=== PATIENT | female | born 1965 | race Caucasian/White ===

== ENCOUNTER 2021-08-05 14:27 | Inpatient (IN) | payer BC, MEDICAID ==
[~2021-08-05] VITALS: Ht 172.7 cm; Wt 133.7 kg
[~2021-08-05 14:27] MED LIST: CETI10CA5 PO; GLIP10TA9 PO; LISI20TA28 PO; LOVA40TA72 PO; MELO1TAB73 PO; METF-370 PO; NIFEDICAL PO; PANTOPRAZOLE PO; PROAIR; SIMV-8 PO
[2021-08-05] MEDS ORDERED: DexAMETHasone SOD PHOS 10MG/1ML VIAL INJ IV ONE (15:15)
[2021-08-05] MEDS ORDERED: IPRATROPIUM BROM 0.5 MG/2.5ML INH SOL NEB ONE ×2 (15:15→18:30)
[2021-08-05] MEDS ORDERED: ALBUTEROL SULF 2.5 MG/0.5ML(0.5%) NEB SOLN NEB ONE ×2 (15:15→18:30)
[2021-08-05 15:32] LABS: Albumin 3.1 g/dL (3.4-5.0); Calcium 8.7 mg/dL (8.5-10.1); Magnesium 1.9 mg/dL (1.6-2.6); Potassium 4.1 mmol/L (3.5-5.1)
[2021-08-05 15:34] LABS: Basophils # (auto) 0.2 10 ^3/uL (0-0.2); Basophils % (auto) 1.6 % (0.0-2.0); Eosinophils # (auto) 0.1 10 ^3/uL (0-0.8); Eosinophils % (auto) 1.4 % (0.0-7.0); Hemoglobin 12.3 g/dL (12.2-16.2); Lymphocytes # (auto) 1.7 10 ^3/uL (0.4-5.4); Lymphocytes % (auto) 16.2 % (10.0-50.0); Mean Corpuscular Hemoglobin 27.9 pg (28.0-32.0); Mean Corpuscular Hgb Conc. 33.3 g/dL (32.0-36.0); Mean Corpuscular Volume 83.7 fL (80.0-100.0); Monocytes # (auto) 0.5 10 ^3/uL (0-1.3); Monocytes % (auto) 5.2 % (0.0-12.0); Neutrophils % (auto) 75.6 % (37.0-80.0); Nucleated Red Blood Cells % 0.1 %; Red Blood Cells 4.42 10^6/uL (4.0-5.20); Red Cell Distribution Width 17.2 % (11.8-14.3); White Blood Cell 10.5 10^3/uL (4.4-10.8)
[2021-08-05 15:35] LABS: BUN/Creatinine Ratio 7.1; Bilirubin, Total 0.9 mg/dL (0.2-1.0)
[2021-08-05] MEDS ORDERED: IOHEXOL 350 MG/ML 100ML IJ ONE (16:40)
[2021-08-05] MEDS ORDERED: NITROGLYCERIN 0.4 MG SL TAB SL PRN (17:00)
[2021-08-05] MEDS ORDERED: MORPHINE SULFATE INJECTION 2 MG/ML SYRG IV PRN (17:00)
[2021-08-05] MEDS ORDERED: CLINDAMYCIN 600MG IV 50 ML IV ONE (18:30)
[2021-08-05] MEDS ORDERED: MONTELUKAST SODIUM 10 MG TAB PO ONE (18:30)
[2021-08-05] MEDS ORDERED: BENAZEPRIL HCL 10 MG TAB PO ONE (18:30)
[2021-08-05] MEDS ORDERED: DOCUSATE SOD 100 MG CAP PO PRN (18:30)
[2021-08-05] MEDS ORDERED: BUDESONIDE (INHALATION) 0.5 MG/2 ML NEB NEB ONE (18:30)
[2021-08-05] MEDS ORDERED: HYDROcodone-ACET 5/325MG TAB PO ONE (18:30)
[2021-08-05] MEDS ORDERED: cefTRIAXone 1GM/50ML D5W 50 ML IV ONE (18:30)
[2021-08-05] MEDS ORDERED: LACTULOSE 20Gm/30ML SOLN PO PRN (18:30)
[2021-08-05] MEDS ORDERED: DEXTROSE (50%) 50ML SYRG IV PRN (18:30)
[2021-08-05] MEDS ORDERED: ONDANSETRON HCL 4 MG/2 ML VIAL IV PRN (18:30)
[2021-08-05] MEDS ORDERED: NIFEdipine ER 30 MG TAB PO ONE (18:30)
[2021-08-05] MEDS ORDERED: PANTOPRAZOLE 40 MG/10 ML VIAL INJ IV ONE (18:30)
[2021-08-05] MEDS ORDERED: DILT-23 PO (18:33)
[2021-08-05] MEDS ORDERED: METF-370 PO (18:33)
[2021-08-05] MEDS ORDERED: DIPHCRE EX (18:33)
[2021-08-05] MEDS ORDERED: PRAS10TA18 PO (18:33)
[2021-08-05] MEDS ORDERED: SILV-21 TOP (18:33)
[2021-08-05] MEDS ORDERED: ALBU108A5 IN (18:33)
[2021-08-05] MEDS ORDERED: NALO4SPR2 (18:33)
[2021-08-05] MEDS ORDERED: AUG0.05L6 EX (18:33)
[2021-08-05] MEDS ORDERED: RANO500T2 PO (18:33)
[2021-08-05] MEDS ORDERED: DICL1GEL72 EX (18:33)
[2021-08-05] MEDS ORDERED: TRAM50TA2 PO (18:33)
[2021-08-05] MEDS ORDERED: COEN100C15 PO (18:33)
[2021-08-05] MEDS ORDERED: POTA-180 PO (18:33)
[2021-08-05] MEDS ORDERED: ASPI81CH74 PO (18:33)
[2021-08-05] MEDS ORDERED: NITR0.4S29 SL (18:33)
[2021-08-05] MEDS ORDERED: DULO60CA PO (18:33)
[2021-08-05] MEDS ORDERED: PREG200C19 PO (18:33)
[2021-08-05] MEDS ORDERED: ATOR20TA50 PO (18:33)
[2021-08-05] MEDS ORDERED: ISOS20TA49 PO (18:33)
[2021-08-05] MEDS ORDERED: GLIP5TAB12 PO (18:33)
[2021-08-05] MEDS ORDERED: INSUINJ2 SC (18:34)
[2021-08-05] MEDS ORDERED: BISO5TAB44 PO (18:37)
[2021-08-05] MEDS ORDERED: hydrOXYzine HCL 10 MG TAB PO PRN (18:45)
[2021-08-05 19:45] LABS: Magnesium 1.6 mg/dL (1.6-2.6); Phosphorus 2.8 mg/dL (2.5-4.90)
[2021-08-05 19:58] LABS: INR 1.04 (0.9-1.15); Partial Thromboplastin Time 31.6 sec (23.6-33.0)
[2021-08-05 21:50] VITALS: BP 117/64
[2021-08-05] MEDS ORDERED: IPRATROPIUM BROM 0.5 MG/2.5ML INH SOL NEB SCH (22:00)
[2021-08-05 22:05] VITALS: BP 117/64
[2021-08-05] MEDS: ACETYLCYSTEINE 10 %(100MG/ML) SOL 4ML NEB SCH (22:30)
[2021-08-05] MEDS: ALBUTEROL SULF 2.5 MG/0.5ML(0.5%) NEB SOLN NEB PRN (22:31)
[2021-08-05] MEDS: BUDESONIDE (INHALATION) 0.5 MG/2 ML NEB NEB SCH (22:31)
[2021-08-05] MEDS: POTASSIUM CHL 20 Meq TABLET PO SCH (22:55)
[2021-08-05] MEDS: ATORVASTATIN 20 MG TAB PO SCH (22:56)
[2021-08-05] MEDS: ACCU-CHEK COMFORT CURVE STRIP VI SCH (23:14)
[2021-08-05] MEDS: methylPREDNISolone SOD SUCC 40 MG/ML VL IV SCH (23:42)
[2021-08-06] MEDS ORDERED: MAGNESIUM SULFATE 1GM/100ML 100 ML IV ONE (00:45)
[2021-08-06] MEDS ORDERED: InsuLIN REG 1unit/0.01ml Soln (100units/ml) SC ONE (00:45)
[2021-08-06 05:00] VITALS: BP 107/54
[2021-08-06] MEDS: PREGABALIN CAPSULE 75 MG CAP PO SCH ×3 (05:43→21:44)
[2021-08-06] MEDS: PREGABALIN 25 MG CAP PO SCH ×3 (05:43→21:44)
[2021-08-06] MEDS: ACCU-CHEK COMFORT CURVE STRIP VI SCH ×4 (05:43→22:29)
[2021-08-06] MEDS: methylPREDNISolone SOD SUCC 40 MG/ML VL IV SCH (05:44)
[2021-08-06] MEDS: FUROSEMIDE 20 MG/2 ML VIAL IV SCH ×2 (05:44→17:40)
[2021-08-06] MEDS: CLINDAMYCIN 600MG IV 50 ML IV SCH ×3 (05:44→20:10)
[2021-08-06] MEDS: ACETYLCYSTEINE 10 %(100MG/ML) SOL 4ML NEB SCH (06:00)
[2021-08-06] MEDS ORDERED: PREGABALIN 200 MG PO SCH (06:00)
[2021-08-06] MEDS: ALBUTEROL SULF 2.5 MG/0.5ML(0.5%) NEB SOLN NEB PRN ×2 (06:16→18:34)
[2021-08-06] MEDS: IPRATROPIUM BROM 0.5 MG/2.5ML INH SOL NEB PRN ×2 (06:16→18:34)
[2021-08-06] MEDS: BUDESONIDE (INHALATION) 0.5 MG/2 ML NEB NEB SCH ×2 (06:16→18:34)
[2021-08-06 06:26] LABS: Basophils # (auto) 0 10 ^3/uL (0-0.2); Basophils % (auto) 0.1 % (0.0-2.0); Eosinophils # (auto) 0 10 ^3/uL (0-0.8); Hematocrit 38.1 % (36.0-46.0); Hemoglobin 12.6 g/dL (12.2-16.2); Lymphocytes # (auto) 0.8 10 ^3/uL (0.4-5.4); Lymphocytes % (auto) 7.4 % (10.0-50.0); Mean Corpuscular Hemoglobin 28.1 pg (28.0-32.0); Mean Corpuscular Hgb Conc. 33.1 g/dL (32.0-36.0); Monocytes # (auto) 0.2 10 ^3/uL (0-1.3); Monocytes % (auto) 2.2 % (0.0-12.0); Neutrophils # (auto) 9.6 10 ^3/uL (1.6-8.6); Neutrophils % (auto) 90.3 % (37.0-80.0); Nucleated Red Blood Cells % 0.1 %; Red Blood Cells 4.48 10^6/uL (4.0-5.20); Red Cell Distribution Width 17.7 % (11.8-14.3); White Blood Cell 10.6 10^3/uL (4.4-10.8)
[2021-08-06 06:41] LABS: INR 0.99 (0.9-1.15); Partial Thromboplastin Time 30.8 sec (23.6-33.0); Potassium 4.5 mmol/L (3.5-5.1)
[2021-08-06 06:52] LABS: BUN/Creatinine Ratio 12.8; Bilirubin, Total 0.6 mg/dL (0.2-1.0); CRP High Sensitivity 10.7 mg/dL (< 0.3); Calcium 8.9 mg/dL (8.5-10.1); Phosphorus 3.7 mg/dL (2.5-4.90); Total Protein 7.3 g/dL (6.4-8.2); Uric Acid 4.5 mg/dL (2.6-6.0)
[2021-08-06 06:59] LABS: Thyroid Stimulating Hormone 0.53 uIU/mL (0.358-3.74)
[2021-08-06] MEDS: INSULIN LANTUS (GLARGINE) 1 /0.01ml (100units/ml) SC SCH ×2 (07:01→22:38)
[2021-08-06] MEDS: InsuLIN REG 1unit/0.01ml Soln (100units/ml) SC SCH ×4 (07:02→22:38)
[2021-08-06 08:21] VITALS: BP 105/63
[2021-08-06] MEDS: cefTRIAXone 1GM/50ML D5W 50 ML IV SCH (09:00)
[2021-08-06] MEDS: CHOLECALCIFEROL (VITD3) 2,000 UNIT CAP/TAB PO SCH (09:40)
[2021-08-06] MEDS: ASPirin 81 mg TAB PO SCH (09:41)
[2021-08-06] MEDS: POTASSIUM CHL 20 Meq TABLET PO SCH ×2 (09:41→21:45)
[2021-08-06] MEDS: ENOXAPARIN SOD 40 MG/0.4 ML SYRINGE SC SCH (09:45)
[2021-08-06] MEDS ORDERED: BENAZEPRIL HCL 10 MG TAB PO SCH (10:00)
[2021-08-06] MEDS ORDERED: PANTOPRAZOLE 40 MG/10 ML VIAL INJ IV SCH (10:00)
[2021-08-06] MEDS ORDERED: NIFEdipine ER 30 MG TAB PO SCH (10:00)
[2021-08-06] MEDS ORDERED: MAGNESIUM OXIDE 400 MG TAB PO SCH (10:00)
[2021-08-06] MEDS ORDERED: LORazepam 2MG/ML-1ML VIAL IV ONE (12:30)
[2021-08-06 13:01] VITALS: BP 123/70
[2021-08-06] MEDS: PROMETHAZINE-DM 5 ML ORAL SYRUP PO PRN ×2 (14:26→19:10)
[2021-08-06 17:00] VITALS: BP 124/67
[2021-08-06 19:22] LABS: Urine WBC None Seen /hpf (0 - 5)
[2021-08-06 19:34] LABS: Urine Bacteria NONE SEEN /hpf (None Seen); Urine Blood Negative /uL (Negative); Urine Budding Yeast OCCASIONAL /hpf (None Seen); Urine Hyaline Cast FEW /lpf (0 - 2); Urine Specific Gravity 1.003 (1.001-1.035)
[2021-08-06 19:48] LABS: Amphetamine Screen, Urine NEGATIVE (NEGATIVE); Barbiturate Scree,Urine NEGATIVE (NEGATIVE); Benzodiazephine Screen, Urine NEGATIVE (NEGATIVE); Cannabinoid Screen, Urine NEGATIVE (NEGATIVE); Cocaine Screen, Urine NEGATIVE (NEGATIVE); Opiate Scree,Urine NEGATIVE (NEGATIVE); Phencyclidine Screen, Urine NEGATIVE (NEGATIVE); Protein, Urine < 5.0 mg/dL (0.0-11.9)
[2021-08-06 22:00] VITALS: BP 115/66
[2021-08-06] MEDS: ATORVASTATIN 20 MG TAB PO SCH (22:28)
[2021-08-06] MEDS: MONTELUKAST SODIUM 10 MG TAB PO SCH (22:28)
[2021-08-07] MEDS: PROMETHAZINE-DM 5 ML ORAL SYRUP PO PRN ×5 (02:24→23:31)
[2021-08-07] MEDS: CLINDAMYCIN 600MG IV 50 ML IV SCH ×3 (03:25→20:00)
[2021-08-07 05:00] VITALS: BP 102/63
[2021-08-07 06:26] LABS: Anion Gap 8 (5-15); BUN/Creatinine Ratio 21.5; Blood Urea Nitrogen 17 mg/dL (7-18); Carbon Dioxide 27 mmol/L (21-32); Chloride 105 mmol/L (98-107); GFR African American 98 mL/min; GFR Non-African American 81 mL/min; Glucose 165 mg/dL (74-106); Potassium 4.6 mmol/L (3.5-5.1); Sodium 140 mmol/L (136-145)
[2021-08-07] MEDS: ACCU-CHEK COMFORT CURVE STRIP VI SCH ×4 (06:44→21:52)
[2021-08-07] MEDS: FUROSEMIDE 20 MG/2 ML VIAL IV SCH ×2 (06:44→17:34)
[2021-08-07] MEDS: PREGABALIN 25 MG CAP PO SCH ×3 (06:44→21:51)
[2021-08-07] MEDS: PREGABALIN CAPSULE 75 MG CAP PO SCH ×3 (06:44→21:51)
[2021-08-07] MEDS: IPRATROPIUM BROM 0.5 MG/2.5ML INH SOL NEB PRN ×2 (06:54→18:17)
[2021-08-07] MEDS: ALBUTEROL SULF 2.5 MG/0.5ML(0.5%) NEB SOLN NEB PRN ×2 (06:54→18:17)
[2021-08-07] MEDS: BUDESONIDE (INHALATION) 0.5 MG/2 ML NEB NEB SCH ×2 (06:54→18:17)
[2021-08-07] MEDS: InsuLIN REG 1unit/0.01ml Soln (100units/ml) SC SCH ×4 (06:56→22:11)
[2021-08-07] MEDS: INSULIN LANTUS (GLARGINE) 1 /0.01ml (100units/ml) SC SCH ×2 (06:56→22:06)
[2021-08-07 07:56] VITALS: BP 133/77
[2021-08-07] MEDS: POTASSIUM CHL 20 Meq TABLET PO SCH ×2 (09:58→21:51)
[2021-08-07] MEDS: ASPirin 81 mg TAB PO SCH (09:59)
[2021-08-07] MEDS: BENAZEPRIL HCL 10 MG TAB PO SCH (10:00)
[2021-08-07] MEDS: cefTRIAXone 1GM/50ML D5W 50 ML IV SCH (10:01)
[2021-08-07] MEDS: FAMOTIDINE 20 MG TAB PO SCH (10:04)
[2021-08-07] MEDS: ENOXAPARIN SOD 40 MG/0.4 ML SYRINGE SC SCH (10:25)
[2021-08-07] MEDS: CHOLECALCIFEROL (VITD3) 2,000 UNIT CAP/TAB PO SCH (10:25)
[2021-08-07 12:32] VITALS: BP 105/62
[2021-08-07] MEDS: ACETAMINOPHEN 325 MG TAB PO PRN (15:36)
[2021-08-07 16:20] VITALS: BP 132/75
[2021-08-07 21:31] VITALS: BP 121/63
[2021-08-07] MEDS: ATORVASTATIN 20 MG TAB PO SCH (21:51)
[2021-08-07] MEDS: MONTELUKAST SODIUM 10 MG TAB PO SCH (21:52)
[2021-08-08] MEDS: ALBUTEROL SULF 2.5 MG/0.5ML(0.5%) NEB SOLN NEB PRN (00:13)
[2021-08-08] MEDS: CLINDAMYCIN 600MG IV 50 ML IV SCH ×3 (03:50→19:59)
[2021-08-08 04:52] VITALS: BP 115/67
[2021-08-08] MEDS: FUROSEMIDE 20 MG/2 ML VIAL IV SCH (06:22)
[2021-08-08] MEDS: PREGABALIN 25 MG CAP PO SCH ×3 (06:22→22:05)
[2021-08-08] MEDS: ACCU-CHEK COMFORT CURVE STRIP VI SCH ×4 (06:23→22:23)
[2021-08-08] MEDS: PREGABALIN CAPSULE 75 MG CAP PO SCH ×3 (06:23→22:04)
[2021-08-08] MEDS: ACETAMINOPHEN 325 MG TAB PO PRN (06:46)
[2021-08-08] MEDS: INSULIN LANTUS (GLARGINE) 1 /0.01ml (100units/ml) SC SCH ×2 (06:47→22:23)
[2021-08-08] MEDS: InsuLIN REG 1unit/0.01ml Soln (100units/ml) SC SCH ×4 (06:48→22:13)
[2021-08-08 08:30] VITALS: BP 117/73
[2021-08-08] MEDS: BUDESONIDE (INHALATION) 0.5 MG/2 ML NEB NEB SCH ×2 (09:57→22:00)
[2021-08-08] MEDS: cefTRIAXone 1GM/50ML D5W 50 ML IV SCH (10:28)
[2021-08-08] MEDS: ENOXAPARIN SOD 40 MG/0.4 ML SYRINGE SC SCH (10:29)
[2021-08-08] MEDS: FAMOTIDINE 20 MG TAB PO SCH (10:29)
[2021-08-08] MEDS: ASPirin 81 mg TAB PO SCH (10:29)
[2021-08-08] MEDS: POTASSIUM CHL 20 Meq TABLET PO SCH ×2 (10:29→22:03)
[2021-08-08] MEDS: PROMETHAZINE-DM 5 ML ORAL SYRUP PO PRN ×3 (10:29→22:12)
[2021-08-08] MEDS: CHOLECALCIFEROL (VITD3) 2,000 UNIT CAP/TAB PO SCH (10:29)
[2021-08-08] MEDS: BENAZEPRIL HCL 10 MG TAB PO SCH (10:30)
[2021-08-08] MEDS ORDERED: FUROSEMIDE 20 MG/2 ML VIAL IV ONE (11:15)
[2021-08-08 12:25] VITALS: BP 110/74
[2021-08-08 16:25] VITALS: BP 112/73
[2021-08-08] MEDS: FUROSEMIDE 40 MG/4 ML VIAL IV SCH (17:19)
[2021-08-08] MEDS: LORazepam 0.5 MG TAB PO PRN (17:37)
[2021-08-08 22:00] VITALS: BP 132/82
[2021-08-08] MEDS: ATORVASTATIN 20 MG TAB PO SCH (22:03)
[2021-08-08] MEDS: MONTELUKAST SODIUM 10 MG TAB PO SCH (22:03)
[2021-08-08 22:40] VITALS: BP 132/82
[2021-08-09] MEDS: ACETAMINOPHEN 325 MG TAB PO PRN (04:02)
[2021-08-09] MEDS: CLINDAMYCIN 600MG IV 50 ML IV SCH ×3 (04:02→21:58)
[2021-08-09] MEDS: LORazepam 0.5 MG TAB PO PRN ×2 (04:02→11:58)
[2021-08-09] MEDS: PROMETHAZINE-DM 5 ML ORAL SYRUP PO PRN ×3 (04:07→22:00)
[2021-08-09 05:00] VITALS: BP 123/80
[2021-08-09] MEDS: BUDESONIDE (INHALATION) 0.5 MG/2 ML NEB NEB SCH ×2 (05:46→19:27)
[2021-08-09 05:58] LABS: Potassium 3.6 mmol/L (3.5-5.1)
[2021-08-09 06:04] LABS: BUN/Creatinine Ratio 23.9; Calcium 9.3 mg/dL (8.5-10.1)
[2021-08-09] MEDS: FUROSEMIDE 40 MG/4 ML VIAL IV SCH ×2 (06:53→17:52)
[2021-08-09] MEDS: PREGABALIN CAPSULE 75 MG CAP PO SCH ×2 (06:54→16:53)
[2021-08-09] MEDS: PREGABALIN 25 MG CAP PO SCH ×2 (06:54→16:53)
[2021-08-09] MEDS: InsuLIN REG 1unit/0.01ml Soln (100units/ml) SC SCH ×4 (06:56→21:59)
[2021-08-09] MEDS: INSULIN LANTUS (GLARGINE) 1 /0.01ml (100units/ml) SC SCH ×2 (06:57→22:00)
[2021-08-09] MEDS: ACCU-CHEK COMFORT CURVE STRIP VI SCH ×4 (07:04→22:02)
[2021-08-09 08:25] VITALS: BP 146/90
[2021-08-09] MEDS: BENAZEPRIL HCL 10 MG TAB PO SCH (10:27)
[2021-08-09] MEDS: POTASSIUM CHL 20 Meq TABLET PO SCH ×2 (10:28→22:02)
[2021-08-09] MEDS: ASPirin 81 mg TAB PO SCH (10:28)
[2021-08-09] MEDS: cefTRIAXone 1GM/50ML D5W 50 ML IV SCH (10:29)
[2021-08-09] MEDS: FAMOTIDINE 20 MG TAB PO SCH (10:30)
[2021-08-09] MEDS: CHOLECALCIFEROL (VITD3) 2,000 UNIT CAP/TAB PO SCH (10:31)
[2021-08-09] MEDS: ENOXAPARIN SOD 40 MG/0.4 ML SYRINGE SC SCH (10:32)
[2021-08-09] MEDS ORDERED: metOLazone 5 MG TAB PO ONE (11:15)
[2021-08-09 12:30] VITALS: BP 107/77
[2021-08-09 15:55] VITALS: BP 132/77
[2021-08-09] MEDS: ALBUTEROL SULF 2.5 MG/0.5ML(0.5%) NEB SOLN NEB PRN (19:27)
[2021-08-09] MEDS: IPRATROPIUM BROM 0.5 MG/2.5ML INH SOL NEB PRN (19:27)
[2021-08-09 22:00] VITALS: BP 127/78
[2021-08-09] MEDS: MONTELUKAST SODIUM 10 MG TAB PO SCH (22:00)
[2021-08-09] MEDS: ATORVASTATIN 20 MG TAB PO SCH (22:01)
[2021-08-10] MEDS: PREGABALIN 25 MG CAP PO SCH ×4 (00:06→22:22)
[2021-08-10] MEDS: PREGABALIN CAPSULE 75 MG CAP PO SCH ×4 (00:06→22:22)
[2021-08-10] MEDS: PROMETHAZINE-DM 5 ML ORAL SYRUP PO PRN ×3 (02:04→22:38)
[2021-08-10] MEDS: CLINDAMYCIN 600MG IV 50 ML IV SCH (04:01)
[2021-08-10 04:51] VITALS: BP 101/56
[2021-08-10] MEDS: FUROSEMIDE 40 MG/4 ML VIAL IV SCH ×2 (06:20→17:55)
[2021-08-10] MEDS: InsuLIN REG 1unit/0.01ml Soln (100units/ml) SC SCH ×4 (06:21→22:24)
[2021-08-10] MEDS: INSULIN LANTUS (GLARGINE) 1 /0.01ml (100units/ml) SC SCH ×2 (06:22→22:24)
[2021-08-10] MEDS: ACCU-CHEK COMFORT CURVE STRIP VI SCH ×4 (06:22→22:25)
[2021-08-10] MEDS: BUDESONIDE (INHALATION) 0.5 MG/2 ML NEB NEB SCH ×2 (07:14→19:14)
[2021-08-10 08:00] VITALS: BP 121/88
[2021-08-10 08:25] VITALS: BP 121/88
[2021-08-10] MEDS: ASPirin 81 mg TAB PO SCH (09:09)
[2021-08-10] MEDS: cefTRIAXone 1GM/50ML D5W 50 ML IV SCH (09:09)
[2021-08-10] MEDS: BENAZEPRIL HCL 10 MG TAB PO SCH (09:10)
[2021-08-10] MEDS: POTASSIUM CHL 20 Meq TABLET PO SCH ×2 (09:10→22:21)
[2021-08-10] MEDS: FAMOTIDINE 20 MG TAB PO SCH (09:11)
[2021-08-10] MEDS: CHOLECALCIFEROL (VITD3) 2,000 UNIT CAP/TAB PO SCH (09:11)
[2021-08-10] MEDS: ENOXAPARIN SOD 40 MG/0.4 ML SYRINGE SC SCH (09:11)
[2021-08-10] MEDS: MORPHINE SULFATE INJECTION 2 MG/ML SYRG IV PRN (09:12)
[2021-08-10] MEDS ORDERED: metOLazone 5 MG TAB PO ONE (10:30)
[2021-08-10 12:27] VITALS: BP 120/77
[2021-08-10 16:25] VITALS: BP 117/71
[2021-08-10] MEDS: Juven Fruit Punch Powder PACKET 28.8gm PO SCH (18:10)
[2021-08-10] MEDS: ALBUTEROL SULF 2.5 MG/0.5ML(0.5%) NEB SOLN NEB PRN (19:14)
[2021-08-10] MEDS: IPRATROPIUM BROM 0.5 MG/2.5ML INH SOL NEB PRN (19:14)
[2021-08-10 22:00] VITALS: BP 95/63
[2021-08-10] MEDS: AMOXICILLIN/CLAVUL 875 MG TAB PO SCH (22:20)
[2021-08-10] MEDS: ATORVASTATIN 20 MG TAB PO SCH (22:21)
[2021-08-10] MEDS: MONTELUKAST SODIUM 10 MG TAB PO SCH (22:21)
[2021-08-11 05:00] VITALS: BP 102/74
[2021-08-11 06:14] LABS: BUN/Creatinine Ratio 26.2; Calcium 9.8 mg/dL (8.5-10.1)
[2021-08-11] MEDS: PREGABALIN 25 MG CAP PO SCH ×2 (06:21→14:07)
[2021-08-11] MEDS: PREGABALIN CAPSULE 75 MG CAP PO SCH ×2 (06:21→14:07)
[2021-08-11 06:22] LABS: Potassium 2.9 mmol/L (3.5-5.1)
[2021-08-11] MEDS: InsuLIN REG 1unit/0.01ml Soln (100units/ml) SC SCH ×3 (06:30→18:13)
[2021-08-11] MEDS: INSULIN LANTUS (GLARGINE) 1 /0.01ml (100units/ml) SC SCH (06:31)
[2021-08-11] MEDS: ACCU-CHEK COMFORT CURVE STRIP VI SCH ×3 (06:37→18:06)
[2021-08-11] MEDS: POTASSIUM CHL 20 Meq TABLET PO SCH (06:41)
[2021-08-11] MEDS: BUDESONIDE (INHALATION) 0.5 MG/2 ML NEB NEB SCH (06:54)
[2021-08-11] MEDS: IPRATROPIUM BROM 0.5 MG/2.5ML INH SOL NEB PRN (06:54)
[2021-08-11] MEDS: ALBUTEROL SULF 2.5 MG/0.5ML(0.5%) NEB SOLN NEB PRN (06:54)
[2021-08-11] MEDS: FUROSEMIDE 40 MG/4 ML VIAL IV SCH ×2 (06:56→18:06)
[2021-08-11] MEDS: Juven Fruit Punch Powder PACKET 28.8gm PO SCH ×2 (07:33→18:06)
[2021-08-11 08:00] VITALS: BP 113/78
[2021-08-11 09:00] VITALS: BP 113/78
[2021-08-11] MEDS: AMOXICILLIN/CLAVUL 875 MG TAB PO SCH (10:02)
[2021-08-11] MEDS: ASPirin 81 mg TAB PO SCH (10:02)
[2021-08-11] MEDS: CHOLECALCIFEROL (VITD3) 2,000 UNIT CAP/TAB PO SCH (10:03)
[2021-08-11] MEDS: FAMOTIDINE 20 MG TAB PO SCH (10:03)
[2021-08-11] MEDS: ENOXAPARIN SOD 40 MG/0.4 ML SYRINGE SC SCH (10:03)
[2021-08-11] MEDS: MORPHINE SULFATE INJECTION 2 MG/ML SYRG IV PRN (10:03)
[2021-08-11] MEDS: BENAZEPRIL HCL 10 MG TAB PO SCH (10:03)
[2021-08-11] MEDS: PROMETHAZINE-DM 5 ML ORAL SYRUP PO PRN (10:05)
[2021-08-11] MEDS ORDERED: POTASSIUM CHL 20MEQ/100ML 100 ML IV ONE (11:30)
[2021-08-11] MEDS ORDERED: POTASSIUM CHL 20 Meq TABLET PO ONE ×2 (11:30→16:30)
[2021-08-11] MEDS ORDERED: AMOX500T86 PO (11:48)
[2021-08-11] MEDS ORDERED: FURO1TAB31 PO (11:48)
[2021-08-11] MEDS ORDERED: POTA1TAB4 PO (11:48)
[2021-08-11 13:00] VITALS: BP 105/54
[2021-08-11 15:26] LABS: BUN/Creatinine Ratio 15.9; Calcium 9.4 mg/dL (8.5-10.1); Potassium 3.6 mmol/L (3.5-5.1)
[2021-08-11 15:51] VITALS: BP 105/54
[2021-08-11 17:00] VITALS: BP 118/57
== END 2021-08-11 18:50 | disposition home or self-care (01) | DRG 133 ==
LOC: ER 14:27 → TELE-EAST 16:51
PROVIDERS: ADMIT Hospitalist; ATTEND Internal Medicine
DX: J96.20 Acute and chronic respiratory failure, unspecified whether with hypoxia or hypercapnia (principal); I50.41 Acute combined systolic (congestive) and diastolic (congestive) heart failure; I27.9 Pulmonary heart disease, unspecified; L03.116 Cellulitis of left lower limb; J44.0 Chronic obstructive pulmonary disease with (acute) lower respiratory infection; L97.529 Non-pressure chronic ulcer of other part of left foot with unspecified severity; E11.42 Type 2 diabetes mellitus with diabetic polyneuropathy; I11.0 Hypertensive heart disease with heart failure; J44.1 Chronic obstructive pulmonary disease with (acute) exacerbation; L03.032 Cellulitis of left toe; B95.8 Unspecified staphylococcus as the cause of diseases classified elsewhere; E11.621 Type 2 diabetes mellitus with foot ulcer; E66.01 Morbid (severe) obesity due to excess calories; E78.5 Hyperlipidemia, unspecified; G47.33 Obstructive sleep apnea (adult) (pediatric); I25.10 Atherosclerotic heart disease of native coronary artery without angina pectoris; K21.9 Gastro-esophageal reflux disease without esophagitis; E87.6 Hypokalemia; E11.51 Type 2 diabetes mellitus with diabetic peripheral angiopathy without gangrene; Z20.822 Contact with and (suspected) exposure to COVID-19; Z79.02 Long term (current) use of antithrombotics/antiplatelets; Z79.899 Other long term (current) drug therapy; Z82.3 Family history of stroke; Z82.49 Family history of ischemic heart disease and other diseases of the circulatory system; Z83.3 Family history of diabetes mellitus; Z86.16 Personal history of COVID-19; Z87.442 Personal history of urinary calculi; Z95.1 Presence of aortocoronary bypass graft; Z95.5 Presence of coronary angioplasty implant and graft; Z79.84 Long term (current) use of oral hypoglycemic drugs; Z90.49 Acquired absence of other specified parts of digestive tract; Z68.42 Body mass index [BMI] 45.0-49.9, adult; Z88.8 Allergy status to other drugs, medicaments and biological substances; Z72.0 Tobacco use
CPT/HCPCS: 36415; 71045; 71275; 73718; 80048; 80053; 80061; 80307; 81001; 82550; 82728; 82962; 83036; 83615; 83690; 83735; 83880; 84100; 84156; 84443; 84484; 84550; 85025; 85379; 85610; 85652; 85730; 86141; 87040; 87077; 87186; 87205; 93005; 93306; 93925; 94640; 96374; 97116; 97163; 97530; C9113; G0378; J0696; J1100; J1815; J3480; J3490

== ENCOUNTER 2021-10-01 13:59 | Inpatient (IN) | payer MEDICAID ==
[~2021-10-01] VITALS: Ht 172.7 cm; Wt 126.8 kg
[~2021-10-01 13:59] MED LIST changes: +ALBU108A5 IN; +AMOX500T86 PO; +ASPI81CH74 PO; +ATOR20TA50 PO; +AUG0.05L6 EX; +BISO5TAB44 PO; -CETI10CA5 PO; +COEN100C15 PO; +DICL1GEL72 EX; +DILT-23 PO; +DIPHCRE EX; +DULO60CA PO; +FURO1TAB31 PO; -GLIP10TA9 PO; +GLIP5TAB12 PO; +INSUINJ2 SC; +ISOS20TA49 PO; -LISI20TA28 PO; -LOVA40TA72 PO; -MELO1TAB73 PO; +NALO4SPR2; -NIFEDICAL PO; +NITR0.4S29 SL; +POTA-180 PO; +POTA1TAB4 PO; +PRAS10TA18 PO; +PREG200C19 PO; -PROAIR; +RANO500T2 PO; +SILV-21 TOP; -SIMV-8 PO; +TRAM50TA2 PO
[2021-10-01 15:40] LABS: Basophils # (auto) 0.1 10 ^3/uL (0-0.2); Basophils % (auto) 1.2 % (0.0-2.0); Eosinophils # (auto) 0.1 10 ^3/uL (0-0.8); Hematocrit 43.6 % (36.0-46.0); Hemoglobin 14.6 g/dL (12.2-16.2); Lymphocytes # (auto) 2.1 10 ^3/uL (0.4-5.4); Lymphocytes % (auto) 18.3 % (10.0-50.0); Mean Corpuscular Hemoglobin 28.4 pg (28.0-32.0); Mean Corpuscular Hgb Conc. 33.6 g/dL (32.0-36.0); Mean Corpuscular Volume 84.6 fL (80.0-100.0); Monocytes # (auto) 0.7 10 ^3/uL (0-1.3); Monocytes % (auto) 6.1 % (0.0-12.0); Neutrophils # (auto) 8.5 10 ^3/uL (1.6-8.6); Neutrophils % (auto) 73.4 % (37.0-80.0); Nucleated Red Blood Cells % 0.2 %; Red Blood Cells 5.15 10^6/uL (4.0-5.20); Red Cell Distribution Width 17.9 % (11.8-14.3); White Blood Cell 11.6 10^3/uL (4.4-10.8)
[2021-10-01 15:52] LABS: INR 1.02 (0.9-1.15); Partial Thromboplastin Time 27.6 sec (23.6-33.0)
[2021-10-01 15:57] LABS: Albumin 3.6 g/dL (3.4-5.0); BUN/Creatinine Ratio 12.2; Calcium 9.2 mg/dL (8.5-10.1); Potassium 3.2 mmol/L (3.5-5.1)
[2021-10-01 16:00] LABS: Bilirubin, Total 1.3 mg/dL (0.2-1.0); Total Protein 7.7 g/dL (6.4-8.2)
[2021-10-01] MEDS ORDERED: NITROGLYCERIN 0.4 MG SL TAB SL ONE (16:15)
[2021-10-01] MEDS ORDERED: ASPirin 81 mg TAB PO ONE (16:15)
[2021-10-01 16:42] LABS: Urine Bacteria FEW /hpf (None Seen); Urine Blood Negative /uL (Negative); Urine Hyaline Cast FEW /lpf (0 - 2); Urine Mucus FEW (None Seen); Urine WBC 17 /hpf (0 - 5)
[2021-10-01] MEDS ORDERED: POTASSIUM CHL 20 Meq TABLET PO ONE (18:15)
[2021-10-01] MEDS ORDERED: LACTATED RINGER'S 1,000 ML IV ONE (18:15)
[2021-10-01] MEDS ORDERED: MORPHINE SULFATE INJ 2 MG/ml SYRG IV PRN ×2 (21:30)
[2021-10-01] MEDS ORDERED: NITROGLYCERIN 0.4 MG SL TAB SL PRN (21:30)
[2021-10-01] MEDS ORDERED: ONDANSETRON HCL 4 MG/2 ML VIAL IV PRN (21:30)
[2021-10-01] MEDS ORDERED: DEXTROSE (50%) 50ML SYRG IV PRN (21:30)
[2021-10-01] MEDS: MAGNESIUM SULFATE 1GM/100ML 100 ML IV SCH ×2 (21:30→22:30)
[2021-10-01] MEDS ORDERED: SODIUM CHLORIDE 0.9% 1,000 ML IV ONE (21:30)
[2021-10-01] MEDS ORDERED: METOPROLOL TARTRATE 25 MG TAB PO SCH (22:00)
[2021-10-02] VITALS (7 sets, daily range): BP systolic 86–130; BP diastolic 47–80
[2021-10-02] MEDS: ENOXAPARIN SOD 60 MG/0.6 ML SYRINGE SC SCH ×3 (00:48→22:20)
[2021-10-02] MEDS: ISOSORBIDE MONONITRATE ER 60 MG TAB PO SCH ×3 (00:49→22:22)
[2021-10-02] MEDS: RANOLAZINE ER 500 MG TAB PO SCH ×3 (00:50→22:20)
[2021-10-02] MEDS: FUROSEMIDE 40 MG TAB PO SCH ×3 (00:51→22:20)
[2021-10-02] MEDS: ATORVASTATIN 20 MG TAB PO SCH ×2 (00:51→22:22)
[2021-10-02] MEDS: ACCU-CHEK COMFORT CURVE STRIP VI SCH ×5 (00:52→22:20)
[2021-10-02] MEDS: MAGNESIUM SULFATE 1GM/100ML 100 ML IV SCH ×2 (01:28→02:34)
[2021-10-02] MEDS: InsuLIN REG 1unit/0.01ml Soln (100units/ml) SC SCH ×5 (01:41→21:57)
[2021-10-02 06:59] LABS: Basophils # (auto) 0.1 10 ^3/uL (0-0.2); Basophils % (auto) 0.9 % (0.0-2.0); Eosinophils # (auto) 0.1 10 ^3/uL (0-0.8); Eosinophils % (auto) 1.6 % (0.0-7.0); Hematocrit 37.9 % (36.0-46.0); Hemoglobin 13.5 g/dL (12.2-16.2); Lymphocytes # (auto) 2.4 10 ^3/uL (0.4-5.4); Mean Corpuscular Hemoglobin 29.6 pg (28.0-32.0); Mean Corpuscular Hgb Conc. 35.5 g/dL (32.0-36.0); Mean Corpuscular Volume 83.4 fL (80.0-100.0); Monocytes # (auto) 0.6 10 ^3/uL (0-1.3); Monocytes % (auto) 6.6 % (0.0-12.0); Neutrophils # (auto) 5.4 10 ^3/uL (1.6-8.6); Neutrophils % (auto) 62.9 % (37.0-80.0); Nucleated Red Blood Cells % 0.1 %; Red Blood Cells 4.55 10^6/uL (4.0-5.20); Red Cell Distribution Width 18.1 % (11.8-14.3); White Blood Cell 8.6 10^3/uL (4.4-10.8)
[2021-10-02 07:17] LABS: Calcium 8.4 mg/dL (8.5-10.1)
[2021-10-02 07:21] LABS: BUN/Creatinine Ratio 16.9
[2021-10-02 07:27] LABS: Potassium 2.9 mmol/L (3.5-5.1)
[2021-10-02] MEDS ORDERED: POTASSIUM CHL 20 Meq TABLET PO ONE (08:00)
[2021-10-02] MEDS: POTASSIUM CHL 20 Meq TABLET PO SCH ×2 (09:43→22:21)
[2021-10-02] MEDS: dilTIAZem HCL 180MG ER CAP PO SCH (10:00)
[2021-10-02] MEDS ORDERED: DILTIAZEM HCL 300 MG PO SCH (10:00)
[2021-10-02] MEDS: dilTIAZem 120MG ER CAP PO SCH (10:00)
[2021-10-02] MEDS: PRASUGREL HCL 10 MG TAB PO SCH (10:08)
[2021-10-02] MEDS: ASPirin-EC 81 mg tab PO SCH (10:08)
[2021-10-02] MEDS ORDERED: FUROSEMIDE 40 MG TAB PO ONE (10:15)
[2021-10-02] MEDS: HYDROcodone-ACET 5/325MG TAB PO PRN (21:02)
[2021-10-02] MEDS: PREGABALIN 200 MG PO SCH (22:19)
[2021-10-03 05:00] VITALS: BP 92/56
[2021-10-03] MEDS: PREGABALIN 200 MG PO SCH ×3 (06:29→22:52)
[2021-10-03] MEDS: ACCU-CHEK COMFORT CURVE STRIP VI SCH ×4 (06:29→22:52)
[2021-10-03] MEDS: InsuLIN REG 1unit/0.01ml Soln (100units/ml) SC SCH ×4 (06:30→22:53)
[2021-10-03] MEDS: HYDROcodone-ACET 5/325MG TAB PO PRN ×2 (06:40→23:56)
[2021-10-03 09:00] VITALS: BP 117/63
[2021-10-03] MEDS: dilTIAZem HCL 180MG ER CAP PO SCH (10:00)
[2021-10-03] MEDS: dilTIAZem 120MG ER CAP PO SCH (10:00)
[2021-10-03] MEDS: POTASSIUM CHL 20 Meq TABLET PO SCH ×2 (10:05→22:51)
[2021-10-03] MEDS: PRASUGREL HCL 10 MG TAB PO SCH (10:05)
[2021-10-03] MEDS: ASPirin-EC 81 mg tab PO SCH (10:05)
[2021-10-03] MEDS: ISOSORBIDE MONONITRATE ER 60 MG TAB PO SCH ×2 (10:06→22:51)
[2021-10-03] MEDS: ENOXAPARIN SOD 60 MG/0.6 ML SYRINGE SC SCH ×2 (10:07→22:52)
[2021-10-03] MEDS: FUROSEMIDE 40 MG TAB PO SCH ×2 (10:07→22:51)
[2021-10-03 13:00] VITALS: BP 123/67
[2021-10-03] MEDS: RANOLAZINE ER 500 MG TAB PO SCH ×2 (13:07→22:52)
[2021-10-03 17:00] VITALS: BP 132/78
[2021-10-03] MEDS: glipiZIDE 5 MG TAB PO SCH (19:20)
[2021-10-03] MEDS ORDERED: PROMETHAZINE W/CODEINE 5 ML ORAL SYRUP PO PRN (20:00)
[2021-10-03] MEDS ORDERED: IPRATROPIUM BROM 0.5 MG/2.5ML INH SOL NEB SCH (20:00)
[2021-10-03] MEDS: AZITHROMYCIN 500MG/ 250ML 250 ML IV SCH ×2 (21:00→21:16)
[2021-10-03 22:00] VITALS: BP 114/74
[2021-10-03] MEDS: ATORVASTATIN 20 MG TAB PO SCH (22:52)
[2021-10-04 04:36] VITALS: BP 120/45
[2021-10-04] MEDS: IPRATROPIUM BROM 0.5 MG/2.5ML INH SOL NEB SCH ×2 (05:37→12:35)
[2021-10-04] MEDS: glipiZIDE 5 MG TAB PO SCH (05:58)
[2021-10-04] MEDS: ACCU-CHEK COMFORT CURVE STRIP VI SCH ×2 (05:58→11:56)
[2021-10-04] MEDS: PREGABALIN 200 MG PO SCH (05:58)
[2021-10-04] MEDS: InsuLIN REG 1unit/0.01ml Soln (100units/ml) SC SCH ×2 (05:59→11:57)
[2021-10-04] MEDS: ASPirin-EC 81 mg tab PO SCH (09:37)
[2021-10-04] MEDS: ISOSORBIDE MONONITRATE ER 60 MG TAB PO SCH (09:38)
[2021-10-04] MEDS: FUROSEMIDE 40 MG TAB PO SCH (09:38)
[2021-10-04] MEDS: POTASSIUM CHL 20 Meq TABLET PO SCH (09:38)
[2021-10-04] MEDS: RANOLAZINE ER 500 MG TAB PO SCH (09:39)
[2021-10-04] MEDS: ENOXAPARIN SOD 60 MG/0.6 ML SYRINGE SC SCH (09:39)
[2021-10-04] MEDS: dilTIAZem HCL 180MG ER CAP PO SCH (09:40)
[2021-10-04] MEDS: dilTIAZem 120MG ER CAP PO SCH (09:40)
[2021-10-04] MEDS: PRASUGREL HCL 10 MG TAB PO SCH (10:00)
[2021-10-04] MEDS ORDERED: ASPI-543 PO (10:38)
[2021-10-04] MEDS ORDERED: ATOR20TA50 PO (10:38)
[2021-10-04] MEDS ORDERED: PRAS10TA18 PO (10:38)
[2021-10-04] MEDS ORDERED: GLIP5TAB12 PO (10:38)
[2021-10-04] MEDS ORDERED: NITR0.4S29 SL (10:38)
[2021-10-04] MEDS ORDERED: RANO500T PO (10:38)
[2021-10-04] MEDS ORDERED: ISO60SRT PO (10:38)
[2021-10-04] MEDS ORDERED: DOXY-346 PO (10:39)
[2021-10-04] MEDS ORDERED: FLUC150T38 PO (11:06)
[2021-10-04 13:05] VITALS: BP 96/60
== END 2021-10-04 14:38 | disposition home or self-care (01) | DRG 198 ==
LOC: ER 13:59 → WEST WING 22:11 → TELE-WESTW 23:57
PROVIDERS: ADMIT Hospitalist; ATTEND Internal Medicine
DX: I25.110 Atherosclerotic heart disease of native coronary artery with unstable angina pectoris (principal); E11.42 Type 2 diabetes mellitus with diabetic polyneuropathy; E11.51 Type 2 diabetes mellitus with diabetic peripheral angiopathy without gangrene; L97.929 Non-pressure chronic ulcer of unspecified part of left lower leg with unspecified severity; I50.9 Heart failure, unspecified; I11.0 Hypertensive heart disease with heart failure; E11.65 Type 2 diabetes mellitus with hyperglycemia; J44.9 Chronic obstructive pulmonary disease, unspecified; E66.01 Morbid (severe) obesity due to excess calories; Z20.822 Contact with and (suspected) exposure to COVID-19; E78.5 Hyperlipidemia, unspecified; Z82.3 Family history of stroke; Z82.49 Family history of ischemic heart disease and other diseases of the circulatory system; Z68.41 Body mass index [BMI] 40.0-44.9, adult; Z83.3 Family history of diabetes mellitus; Z95.1 Presence of aortocoronary bypass graft; Z98.61 Coronary angioplasty status; Z88.8 Allergy status to other drugs, medicaments and biological substances
CPT/HCPCS: 36415; 71045; 80048; 80053; 80061; 81001; 82962; 83036; 83735; 83880; 84484; 85025; 85610; 85730; 93005; 94640; 96361; 96365; G0378; J1815; J2405

== ENCOUNTER → 2021-11-28 | Outpatient (CLI) | payer MEDICAID ==
[~2021-11-28] MED LIST changes: -ALBU108A5 IN; -AMOX500T86 PO; +ASPI-543 PO; -AUG0.05L6 EX; -DIPHCRE EX; +DOXY-346 PO; +FLUC150T38 PO; +ISO60SRT PO; -ISOS20TA49 PO; -NALO4SPR2; -POTA-180 PO; +RANO500T PO; -RANO500T2 PO; -SILV-21 TOP; -TRAM50TA2 PO
[2021-11-28 09:56] LABS: Basophils # (auto) 0.1 10 ^3/uL (0-0.2); Basophils % (auto) 1.1 % (0.0-2.0); Eosinophils # (auto) 0.2 10 ^3/uL (0-0.8); Eosinophils % (auto) 1.5 % (0.0-7.0); Hematocrit 41.5 % (36.0-46.0); Hemoglobin 13.8 g/dL (12.2-16.2); Lymphocytes # (auto) 3.1 10 ^3/uL (0.4-5.4); Lymphocytes % (auto) 26.7 % (10.0-50.0); Mean Corpuscular Hemoglobin 28.8 pg (28.0-32.0); Mean Corpuscular Hgb Conc. 33.4 g/dL (32.0-36.0); Mean Corpuscular Volume 86.4 fL (80.0-100.0); Monocytes # (auto) 0.5 10 ^3/uL (0-1.3); Monocytes % (auto) 4.5 % (0.0-12.0); Neutrophils # (auto) 7.6 10 ^3/uL (1.6-8.6); Neutrophils % (auto) 66.2 % (37.0-80.0); Nucleated Red Blood Cells % 0.1 %; Red Cell Distribution Width 16.9 % (11.8-14.3); White Blood Cell 11.5 10^3/uL (4.4-10.8)
[2021-11-28 10:22] LABS: Potassium 3.9 mmol/L (3.5-5.1)
[2021-11-28 10:30] LABS: Albumin 3.4 g/dL (3.4-5.0); BUN/Creatinine Ratio 13.9; Bilirubin, Total 0.8 mg/dL (0.2-1.0); Calcium 9.2 mg/dL (8.5-10.1); Total Protein 7.5 g/dL (6.4-8.2)
== END | disposition home or self-care (01) ==
LOC: LAB 09:29
PROVIDERS: ATTEND Nurse Practitioner Family
DX: Z00.00 Encounter for general adult medical examination without abnormal findings (principal); E11.9 Type 2 diabetes mellitus without complications; E78.00 Pure hypercholesterolemia, unspecified
CPT/HCPCS: 36415; 80053; 80061; 83036; 84443; 85025

== ENCOUNTER 2021-12-11 20:33 | Inpatient (IN) | payer MEDICAID ==
[~2021-12-11] VITALS: Ht 172.7 cm; Wt 131.0 kg
[2021-12-11] MEDS ORDERED: VANCOMYCIN 1GM/250ML 250 ML IV ONE (22:00)
[2021-12-11] MEDS ORDERED: CEFEPIME 1GM/ 50ML 50 ML IV ONE (22:00)
[2021-12-11] MEDS ORDERED: MORPHINE SULFATE 4 MG/ML SYR/VIAL IV ONE (22:00)
[2021-12-11 23:02] LABS: Basophils # (auto) 0 10 ^3/uL (0-0.2); Basophils % (auto) 0.3 % (0.0-2.0); Eosinophils # (auto) 0.3 10 ^3/uL (0-0.8); Eosinophils % (auto) 2.5 % (0.0-7.0); Hematocrit 39.8 % (36.0-46.0); Hemoglobin 12.7 g/dL (12.2-16.2); Lymphocytes # (auto) 2.6 10 ^3/uL (0.4-5.4); Mean Corpuscular Hemoglobin 27.9 pg (28.0-32.0); Mean Corpuscular Volume 87.2 fL (80.0-100.0); Monocytes # (auto) 0.6 10 ^3/uL (0-1.3); Monocytes % (auto) 4.7 % (0.0-12.0); Neutrophils # (auto) 8.7 10 ^3/uL (1.6-8.6); Neutrophils % (auto) 71.5 % (37.0-80.0); Red Blood Cells 4.57 10^6/uL (4.0-5.20); Red Cell Distribution Width 17.9 % (11.8-14.3); White Blood Cell 12.2 10^3/uL (4.4-10.8)
[2021-12-11 23:19] LABS: Albumin 2.9 g/dL (3.4-5.0); Calcium 9.1 mg/dL (8.5-10.1); Potassium 3.8 mmol/L (3.5-5.1)
[2021-12-11 23:23] LABS: Bilirubin, Total 0.7 mg/dL (0.2-1.0); Total Protein 7.4 g/dL (6.4-8.2)
[2021-12-12] MEDS ORDERED: ONDANSETRON HCL 4 MG/2 ML VIAL IV PRN (00:45)
[2021-12-12] MEDS ORDERED: ACETAMINOPHEN 325 MG TAB PO PRN (00:45)
[2021-12-12] MEDS ORDERED: DEXTROSE (50%) 50ML SYRG IV PRN (00:45)
[2021-12-12] MEDS: HYDROcodone-ACET 5/325MG TAB PO PRN ×2 (01:11→09:11)
[2021-12-12 03:55] VITALS: BP 119/71
[2021-12-12 05:27] VITALS: BP 120/66
[2021-12-12] MEDS: CLINDAMYCIN 600MG IV 50 ML IV SCH ×3 (06:47→21:30)
[2021-12-12] MEDS: ACCU-CHEK COMFORT CURVE STRIP VI SCH ×4 (06:48→22:14)
[2021-12-12] MEDS: FUROSEMIDE 40 MG TAB PO SCH ×2 (06:48→18:10)
[2021-12-12] MEDS: InsuLIN REG 1unit/0.01ml Soln (100units/ml) SC SCH ×4 (06:49→22:18)
[2021-12-12 08:00] VITALS: BP 108/54
[2021-12-12 09:00] VITALS: BP 108/54
[2021-12-12] MEDS: ISOSORBIDE MONONITRATE ER 60 MG TAB PO SCH (09:09)
[2021-12-12] MEDS: RANOLAZINE ER 500 MG TAB PO SCH ×2 (09:09→21:32)
[2021-12-12] MEDS: ASPirin 81 mg TAB PO SCH (09:09)
[2021-12-12] MEDS: cefTRIAXone 1GM/50ML D5W 50 ML IV SCH (10:33)
[2021-12-12] MEDS: PANTOPRAZOLE 40 MG TAB PO SCH (10:54)
[2021-12-12] MEDS: PRASUGREL HCL 10 MG TAB PO SCH (10:54)
[2021-12-12 13:00] VITALS: BP 108/56
[2021-12-12] MEDS: MORPHINE SULFATE INJ 2 MG/ml SYRG IV PRN (15:51)
[2021-12-12 17:00] VITALS: BP 116/73
[2021-12-12] MEDS: ATORVASTATIN 20 MG TAB PO SCH (21:31)
[2021-12-13 05:00] VITALS: BP_SYST 114; BP_SYST 116; BP_DIAS 54; BP_DIAS 63
[2021-12-13] MEDS: CLINDAMYCIN 600MG IV 50 ML IV SCH (06:00)
[2021-12-13] MEDS: FUROSEMIDE 40 MG TAB PO SCH ×2 (06:00→18:54)
[2021-12-13 06:18] LABS: Basophils # (auto) 0.1 10 ^3/uL (0-0.2); Basophils % (auto) 0.8 % (0.0-2.0); Eosinophils # (auto) 0.3 10 ^3/uL (0-0.8); Hematocrit 36.8 % (36.0-46.0); Hemoglobin 12.1 g/dL (12.2-16.2); Lymphocytes % (auto) 22.4 % (10.0-50.0); Mean Corpuscular Hgb Conc. 32.9 g/dL (32.0-36.0); Mean Corpuscular Volume 85.3 fL (80.0-100.0); Monocytes # (auto) 0.5 10 ^3/uL (0-1.3); Monocytes % (auto) 5.7 % (0.0-12.0); Neutrophils # (auto) 6.2 10 ^3/uL (1.6-8.6); Neutrophils % (auto) 68.1 % (37.0-80.0); Nucleated Red Blood Cells % 0.1 %; Red Blood Cells 4.31 10^6/uL (4.0-5.20); Red Cell Distribution Width 17.2 % (11.8-14.3); White Blood Cell 9.1 10^3/uL (4.4-10.8)
[2021-12-13 06:29] LABS: Potassium 3.2 mmol/L (3.5-5.1)
[2021-12-13 06:34] LABS: Albumin 2.6 g/dL (3.4-5.0); BUN/Creatinine Ratio 14.5; Bilirubin, Total 1.1 mg/dL (0.2-1.0); Calcium 9.1 mg/dL (8.5-10.1); Magnesium 1.9 mg/dL (1.6-2.6); Total Protein 6.6 g/dL (6.4-8.2)
[2021-12-13] MEDS: ACCU-CHEK COMFORT CURVE STRIP VI SCH ×4 (06:52→21:03)
[2021-12-13] MEDS: InsuLIN REG 1unit/0.01ml Soln (100units/ml) SC SCH ×4 (06:53→21:05)
[2021-12-13 09:01] VITALS: BP 117/52
[2021-12-13] MEDS: cefTRIAXone 1GM/50ML D5W 50 ML IV SCH (09:32)
[2021-12-13] MEDS: ASPirin 81 mg TAB PO SCH (09:35)
[2021-12-13] MEDS: PANTOPRAZOLE 40 MG TAB PO SCH (09:35)
[2021-12-13] MEDS: ISOSORBIDE MONONITRATE ER 60 MG TAB PO SCH (10:00)
[2021-12-13] MEDS ORDERED: POTASSIUM CHL 20 Meq TABLET PO ONE (10:15)
[2021-12-13] MEDS: RANOLAZINE ER 500 MG TAB PO SCH ×2 (11:19→21:01)
[2021-12-13] MEDS: PRASUGREL HCL 10 MG TAB PO SCH (11:19)
[2021-12-13 13:00] VITALS: BP 130/76
[2021-12-13] MEDS ORDERED: VANCOMYCIN PER PHARMACY 0 MG IV SCH (15:30)
[2021-12-13 16:27] VITALS: BP 105/62
[2021-12-13] MEDS: MORPHINE SULFATE INJ 2 MG/ml SYRG IV PRN ×2 (16:42→22:35)
[2021-12-13] MEDS: VANCOMYCIN 1GM/250ML 250 ML IV SCH (18:54)
[2021-12-13] MEDS: ATORVASTATIN 20 MG TAB PO SCH (21:02)
[2021-12-13 22:10] VITALS: BP 156/72
[2021-12-14] MEDS: VANCOMYCIN 1GM/250ML 250 ML IV SCH ×3 (00:52→18:10)
[2021-12-14] MEDS: TEMAZEPAM 15 MG CAP PO PRN (01:45)
[2021-12-14 04:00] VITALS: BP 136/59
[2021-12-14] MEDS: ACCU-CHEK COMFORT CURVE STRIP VI SCH ×4 (05:22→21:18)
[2021-12-14] MEDS: FUROSEMIDE 40 MG TAB PO SCH ×2 (05:25→18:11)
[2021-12-14] MEDS: InsuLIN REG 1unit/0.01ml Soln (100units/ml) SC SCH ×4 (05:51→21:21)
[2021-12-14 06:28] LABS: INR 0.97 (0.9-1.15); Partial Thromboplastin Time 28.5 sec (24.6-33.4)
[2021-12-14 09:00] VITALS: BP 136/77
[2021-12-14] MEDS: cefTRIAXone 1GM/50ML D5W 50 ML IV SCH (09:00)
[2021-12-14] MEDS: ISOSORBIDE MONONITRATE ER 60 MG TAB PO SCH (10:00)
[2021-12-14] MEDS: ASPirin 81 mg TAB PO SCH (10:00)
[2021-12-14] MEDS: PANTOPRAZOLE 40 MG TAB PO SCH (10:00)
[2021-12-14] MEDS: PRASUGREL HCL 10 MG TAB PO SCH (10:00)
[2021-12-14] MEDS: RANOLAZINE ER 500 MG TAB PO SCH ×2 (10:00→21:22)
[2021-12-14] MEDS ORDERED: ROPIVACAINE 0.5% (5MG/ML) 20ML AMPULE IJ ONE (11:32)
[2021-12-14] MEDS ORDERED: LIDOCAINE 1%HCL (LOCAL ANESTH) 10 ML MDV ONE (11:32)
[2021-12-14] MEDS ORDERED: DAKINS QUARTER STR 0.125% (NaHypochlorite) 473 ML TOPICAL SOL TOP ONE (11:45)
[2021-12-14] MEDS ORDERED: MIDAZOLAM HCL 2MG/2ML 2ml VIAL (1mg/ml) ONE (11:49)
[2021-12-14] MEDS ORDERED: fentaNYL CITRATE 100 MCG/2 ML VL ONE (11:49)
[2021-12-14] MEDS ORDERED: ONDANSETRON HCL 4 MG/2 ML VIAL ONE (12:38)
[2021-12-14] MEDS ORDERED: PROPOFOL 10 MG/ML 20 ML IV ONE (12:38)
[2021-12-14] MEDS ORDERED: InsuLIN REG 1unit/0.01ml Soln (100units/ml) ONE (12:45)
[2021-12-14] MEDS ORDERED: InsuLIN REG 1unit/0.01ml Soln (100units/ml) IV ONE (12:45)
[2021-12-14] MEDS ORDERED: ONDANSETRON HCL 4 MG/2 ML VIAL IV PRN (13:00)
[2021-12-14] MEDS ORDERED: HYDROmorphone HCL 2 MG/ML VL/or syr IV PRN ×2 (13:00)
[2021-12-14] MEDS: MORPHINE SULFATE INJ 2 MG/ml SYRG IV PRN (15:43)
[2021-12-14 17:00] VITALS: BP 141/77
[2021-12-14] MEDS: HYDROcodone-ACET 5/325MG TAB PO PRN (19:34)
[2021-12-14 20:55] VITALS: BP 122/66
[2021-12-14] MEDS: ATORVASTATIN 20 MG TAB PO SCH (21:21)
[2021-12-15] MEDS: HYDROcodone-ACET 5/325MG TAB PO PRN ×3 (04:04→20:51)
[2021-12-15] MEDS: VANCOMYCIN 1GM/250ML 250 ML IV SCH ×2 (04:48→17:00)
[2021-12-15 04:52] VITALS: BP 122/64
[2021-12-15] MEDS: ACCU-CHEK COMFORT CURVE STRIP VI SCH ×4 (06:04→21:32)
[2021-12-15] MEDS: InsuLIN REG 1unit/0.01ml Soln (100units/ml) SC SCH ×4 (06:08→21:34)
[2021-12-15] MEDS: FUROSEMIDE 40 MG TAB PO SCH ×2 (06:13→18:19)
[2021-12-15 08:00] VITALS: BP 130/70
[2021-12-15 09:00] VITALS: BP 115/51
[2021-12-15] MEDS: PANTOPRAZOLE 40 MG TAB PO SCH (09:36)
[2021-12-15] MEDS: PRASUGREL HCL 10 MG TAB PO SCH (09:36)
[2021-12-15] MEDS: RANOLAZINE ER 500 MG TAB PO SCH ×2 (09:36→21:30)
[2021-12-15] MEDS: ASPirin 81 mg TAB PO SCH (09:36)
[2021-12-15] MEDS: ISOSORBIDE MONONITRATE ER 60 MG TAB PO SCH (09:37)
[2021-12-15 13:00] VITALS: BP 111/76
[2021-12-15 16:22] VITALS: BP 117/56
[2021-12-15] MEDS: ATORVASTATIN 20 MG TAB PO SCH (21:29)
[2021-12-15] MEDS: DAKINS QUARTER STR 0.125% (NaHypochlorite) 473 ML TOPICAL SOL TOP SCH (21:32)
[2021-12-15 22:00] VITALS: BP 141/72
[2021-12-16] MEDS: TEMAZEPAM 15 MG CAP PO PRN (00:11)
[2021-12-16] MEDS: MORPHINE SULFATE INJ 2 MG/ml SYRG IV PRN (00:11)
[2021-12-16 05:00] VITALS: BP 132/81
[2021-12-16 05:10] LABS: Basophils # (auto) 0.1 10 ^3/uL (0-0.2); Basophils % (auto) 1.1 % (0.0-2.0); Eosinophils # (auto) 0.2 10 ^3/uL (0-0.8); Eosinophils % (auto) 2.9 % (0.0-7.0); Hematocrit 36.3 % (36.0-46.0); Hemoglobin 11.8 g/dL (12.2-16.2); Lymphocytes # (auto) 2.5 10 ^3/uL (0.4-5.4); Lymphocytes % (auto) 30.9 % (10.0-50.0); Mean Corpuscular Hemoglobin 27.8 pg (28.0-32.0); Mean Corpuscular Hgb Conc. 32.6 g/dL (32.0-36.0); Mean Corpuscular Volume 85.5 fL (80.0-100.0); Monocytes # (auto) 0.5 10 ^3/uL (0-1.3); Monocytes % (auto) 6.4 % (0.0-12.0); Neutrophils # (auto) 4.7 10 ^3/uL (1.6-8.6); Neutrophils % (auto) 58.7 % (37.0-80.0); Red Blood Cells 4.25 10^6/uL (4.0-5.20); Red Cell Distribution Width 16.8 % (11.8-14.3); White Blood Cell 8.1 10^3/uL (4.4-10.8)
[2021-12-16 05:30] LABS: Magnesium 1.9 mg/dL (1.6-2.6); Potassium 3.5 mmol/L (3.5-5.1)
[2021-12-16 05:32] LABS: BUN/Creatinine Ratio 15.1; Calcium 8.9 mg/dL (8.5-10.1)
[2021-12-16] MEDS: ACCU-CHEK COMFORT CURVE STRIP VI SCH ×2 (06:30→11:30)
[2021-12-16] MEDS: VANCOMYCIN 1GM/250ML 250 ML IV SCH (06:30)
[2021-12-16] MEDS: InsuLIN REG 1unit/0.01ml Soln (100units/ml) SC SCH ×2 (06:41→12:04)
[2021-12-16] MEDS: FUROSEMIDE 40 MG TAB PO SCH (06:43)
[2021-12-16 08:00] VITALS: BP 117/70
[2021-12-16 09:00] VITALS: BP 109/58
[2021-12-16] MEDS: PRASUGREL HCL 10 MG TAB PO SCH (09:15)
[2021-12-16] MEDS: PANTOPRAZOLE 40 MG TAB PO SCH (09:16)
[2021-12-16] MEDS: ISOSORBIDE MONONITRATE ER 60 MG TAB PO SCH (09:16)
[2021-12-16] MEDS: ASPirin 81 mg TAB PO SCH (09:17)
[2021-12-16] MEDS: RANOLAZINE ER 500 MG TAB PO SCH (09:17)
[2021-12-16] MEDS: DAKINS QUARTER STR 0.125% (NaHypochlorite) 473 ML TOPICAL SOL TOP SCH (09:17)
[2021-12-16] MEDS ORDERED: LINE1TAB6 PO (10:24)
[2021-12-16] MEDS ORDERED: HYDR-4798 PO (10:24)
[2021-12-16 13:00] VITALS: BP 112/54
[2021-12-16 13:32] VITALS: BP 109/58
[2021-12-16 14:01] VITALS: BP 109/58
[2021-12-16] MEDS ORDERED: VANCOMYCIN 1GM/250ML 250 ML IV SCH (16:00)
== END 2021-12-16 16:20 | disposition home health service (06) | DRG 344 ==
LOC: ER 20:35 → OVERFLOW 12-12 00:44 → WEST WING 12-12 03:00
PROVIDERS: ADMIT Nurse Practitioner; ATTEND Internal Medicine
PROC: 0Y9N0ZZ Drainage of Left Foot, Open Approach (ICD-10-PCS; principal; 2021-12-14 11:48)
DX: E11.621 Type 2 diabetes mellitus with foot ulcer (principal); M86.8X7 Other osteomyelitis, ankle and foot; N17.9 Acute kidney failure, unspecified; L03.115 Cellulitis of right lower limb; L97.429 Non-pressure chronic ulcer of left heel and midfoot with unspecified severity; B95.62 Methicillin resistant Staphylococcus aureus infection as the cause of diseases classified elsewhere; L03.116 Cellulitis of left lower limb; L02.612 Cutaneous abscess of left foot; E66.01 Morbid (severe) obesity due to excess calories; I10 Essential (primary) hypertension; Z20.822 Contact with and (suspected) exposure to COVID-19; F17.210 Nicotine dependence, cigarettes, uncomplicated; E11.69 Type 2 diabetes mellitus with other specified complication; E78.5 Hyperlipidemia, unspecified; I25.10 Atherosclerotic heart disease of native coronary artery without angina pectoris; Z88.8 Allergy status to other drugs, medicaments and biological substances; Z98.61 Coronary angioplasty status; Z79.4 Long term (current) use of insulin; Z82.3 Family history of stroke; Z82.49 Family history of ischemic heart disease and other diseases of the circulatory system; Z83.3 Family history of diabetes mellitus; Z95.1 Presence of aortocoronary bypass graft; Z68.41 Body mass index [BMI] 40.0-44.9, adult; Z90.49 Acquired absence of other specified parts of digestive tract; Z71.6 Tobacco abuse counseling
CPT/HCPCS: 36415; 71045; 73620; 73700; 73718; 80048; 80053; 80202; 82565; 82962; 83735; 85025; 85610; 85730; 87070; 87075; 87077; 87186; 87205; 96365; 96366; 96367; 96375; G0378; J0696; J1815; J2001; J2250; J2405; J2704; J3490

== ENCOUNTER → 2022-01-17 | Outpatient (CLI) | payer MEDICAID ==
[~2022-01-17] MED LIST changes: +HYDR-4798 PO; +LINE1TAB6 PO
== END | disposition home or self-care (01) ==
LOC: LAB 15:01
PROVIDERS: ATTEND Internal Medicine Pulmonary Disease
DX: Z01.812 Encounter for preprocedural laboratory examination (principal); Z20.822 Contact with and (suspected) exposure to COVID-19
CPT/HCPCS: 36415

== ENCOUNTER → 2022-01-18 | Outpatient (CLI) | payer MEDICAID ==
[~2022-01-18] MED LIST changes: +ALBUTEROL SULF 2.5 MG/0.5ML(0.5%) NEB SOLN ONE
== END | disposition home or self-care (01) ==
LOC: RT 13:29
PROVIDERS: ATTEND Internal Medicine Pulmonary Disease
DX: J44.9 Chronic obstructive pulmonary disease, unspecified (principal)
CPT/HCPCS: 94060; 94727; 94729

== ENCOUNTER 2022-01-29 18:04 | Inpatient (IN) | payer MEDICAID ==
[~2022-01-29] VITALS: Ht 167.6 cm; Wt 135.3 kg
[~2022-01-29 18:04] MED LIST changes: -ALBUTEROL SULF 2.5 MG/0.5ML(0.5%) NEB SOLN ONE
[2022-01-29 18:52] LABS: Hematocrit 41.4 % (36.0-46.0); Hemoglobin 13.4 g/dL (12.2-16.2); Mean Corpuscular Hemoglobin 27.6 pg (28.0-32.0); Mean Corpuscular Hgb Conc. 32.4 g/dL (32.0-36.0); Mean Corpuscular Volume 85.1 fL (80.0-100.0); Red Blood Cells 4.86 10^6/uL (4.0-5.20); Red Cell Distribution Width 18.3 % (11.8-14.3); White Blood Cell 19.3 10^3/uL (4.4-10.8)
[2022-01-29 18:54] LABS: Band Neutrophils % (manual) 0; Basophils % (manual) 0 (0.0-2.0); Blast Cells 0; Metamyelocytes % 0; Myelocytes % 0; Promyelocytes % 0; Reactive Lymphocytes 0
[2022-01-29 19:04] LABS: Eosinophils % (manual) 34 (0-7); Lymphocytes % (manual) 23 (10.0-50.0); Monocytes % (manual) 2 (0-12)
[2022-01-29 19:11] LABS: Albumin 3.1 g/dL (3.4-5.0); Potassium 3.4 mmol/L (3.5-5.1)
[2022-01-29 19:15] LABS: BUN/Creatinine Ratio 9.4; Bilirubin, Total 0.4 mg/dL (0.2-1.0); Calcium 8.3 mg/dL (8.5-10.1); Total Protein 6.4 g/dL (6.4-8.2)
[2022-01-29] MEDS ORDERED: PIPERACILLIN-TAZO 4.5GM 100 ML IV ONE (19:45)
[2022-01-29] MEDS ORDERED: VANCOMYCIN PER PHARMACY 0 MG IV SCH (19:45)
[2022-01-29] MEDS ORDERED: ONDANSETRON HCL 4 MG/2 ML VIAL IV ONE (20:00)
[2022-01-29] MEDS ORDERED: MORPHINE SULFATE 4 MG/ML SYR/VIAL IV ONE (20:00)
[2022-01-29] MEDS ORDERED: VANCOMYCIN 1GM/250ML 250 ML IV ONE (20:15)
[2022-01-29] MEDS ORDERED: DEXTROSE (50%) 50ML SYRG IV PRN (22:00)
[2022-01-29] MEDS ORDERED: ACETAMINOPHEN 325 MG TAB PO PRN (22:00)
[2022-01-29] MEDS ORDERED: ONDANSETRON HCL 4 MG/2 ML VIAL IV PRN (22:00)
[2022-01-29] MEDS: ACCU-CHEK COMFORT CURVE STRIP VI SCH (22:23)
[2022-01-29] MEDS: ATORVASTATIN 20 MG TAB PO SCH (22:27)
[2022-01-29] MEDS: RANOLAZINE ER 500 MG TAB PO SCH (22:28)
[2022-01-29] MEDS: InsuLIN REG 1unit/0.01ml Soln (100units/ml) SC SCH (22:30)
[2022-01-29] MEDS: HYDROcodone-ACET 5/325MG TAB PO PRN (23:15)
[2022-01-29 23:21] LABS: BUN/Creatinine Ratio 11.8; Calcium 8.2 mg/dL (8.5-10.1); Potassium 3.3 mmol/L (3.5-5.1)
[2022-01-30] MEDS: CLINDAMYCIN 600MG IV 50 ML IV SCH ×2 (00:56→05:55)
[2022-01-30] MEDS: HYDROcodone-ACET 5/325MG TAB PO PRN ×3 (04:55→19:34)
[2022-01-30] MEDS: FUROSEMIDE 40 MG TAB PO SCH ×2 (05:55→18:03)
[2022-01-30] MEDS ORDERED: LOPERAMIDE HCL 2 MG CAP/TAB PO PRN (06:00)
[2022-01-30] MEDS ORDERED: VANCOMYCIN PER PHARMACY 0 MG IV SCH (06:00)
[2022-01-30] MEDS: ACCU-CHEK COMFORT CURVE STRIP VI SCH ×4 (06:33→21:20)
[2022-01-30] MEDS: InsuLIN REG 1unit/0.01ml Soln (100units/ml) SC SCH ×4 (06:39→21:28)
[2022-01-30 06:45] LABS: Hematocrit 39.7 % (36.0-46.0); Hemoglobin 12.6 g/dL (12.2-16.2); Mean Corpuscular Hemoglobin 27.5 pg (28.0-32.0); Mean Corpuscular Hgb Conc. 31.8 g/dL (32.0-36.0); Mean Corpuscular Volume 86.3 fL (80.0-100.0); Red Blood Cells 4.59 10^6/uL (4.0-5.20); Red Cell Distribution Width 18.7 % (11.8-14.3); White Blood Cell 15.8 10^3/uL (4.4-10.8)
[2022-01-30 06:51] LABS: Basophils % (manual) 0 (0.0-2.0); Blast Cells 0; Myelocytes % 0; Promyelocytes % 0; Reactive Lymphocytes 0
[2022-01-30 08:14] LABS: Urine Bacteria NONE SEEN /hpf (None Seen); Urine Blood Negative /uL (Negative); Urine Specific Gravity 1.016 (1.001-1.035); Urine WBC 2 /hpf (0 - 5)
[2022-01-30] MEDS: cefTRIAXone 1GM/50ML D5W 50 ML IV SCH (09:40)
[2022-01-30] MEDS ORDERED: ISOSORBIDE MONONITRATE ER 60 MG TAB PO SCH (10:00)
[2022-01-30] MEDS: RANOLAZINE ER 500 MG TAB PO SCH ×2 (10:50→21:20)
[2022-01-30] MEDS: ASPirin 81 mg TAB PO SCH (10:51)
[2022-01-30] MEDS: dilTIAZem HCL 180MG ER CAP PO SCH (10:52)
[2022-01-30] MEDS: PANTOPRAZOLE 40 MG TAB PO SCH (10:52)
[2022-01-30 13:08] VITALS: BP 136/70
[2022-01-30 13:32] VITALS: BP 130/66
[2022-01-30] MEDS: VANCOMYCIN 1GM/250ML 250 ML IV SCH ×2 (14:00→21:19)
[2022-01-30] MEDS ORDERED: ACETAMINOPHEN 500 MG TAB PO PRN (14:30)
[2022-01-30] MEDS ORDERED: TRAM50TA2 PO (14:35)
[2022-01-30] MEDS ORDERED: POTA-167 PO (14:35)
[2022-01-30 14:52] LABS: Band Neutrophils % (manual) 1; Lymphocytes % (manual) 20 (10.0-50.0); Monocytes % (manual) 3 (0-12)
[2022-01-30 14:55] LABS: Eosinophils % (manual) 29 (0-7); Metamyelocytes % 1
[2022-01-30 16:55] VITALS: BP 114/70
[2022-01-30] MEDS: NYSTATIN (MOUTH-THROAT) 500,000 UNITS/5 ML SUSP MT SCH ×2 (18:02→21:20)
[2022-01-30 20:00] VITALS: BP 104/49
[2022-01-30] MEDS: PREGABALIN CAPSULE 75 MG CAP PO SCH (21:20)
[2022-01-30] MEDS: ATORVASTATIN 20 MG TAB PO SCH (21:20)
[2022-01-30] MEDS: TEMAZEPAM 15 MG CAP PO PRN (21:21)
[2022-01-30 22:00] VITALS: BP 104/49
[2022-01-31] VITALS (7 sets, daily range): BP systolic 92–157; BP diastolic 40–76
[2022-01-31] MEDS: VANCOMYCIN 1GM/250ML 250 ML IV SCH ×3 (05:27→22:05)
[2022-01-31] MEDS: NYSTATIN (MOUTH-THROAT) 500,000 UNITS/5 ML SUSP MT SCH ×4 (05:28→22:06)
[2022-01-31] MEDS: FUROSEMIDE 40 MG TAB PO SCH (05:38)
[2022-01-31] MEDS: HYDROcodone-ACET 5/325MG TAB PO PRN ×3 (05:39→20:51)
[2022-01-31] MEDS: ACCU-CHEK COMFORT CURVE STRIP VI SCH ×4 (06:08→22:06)
[2022-01-31] MEDS: InsuLIN REG 1unit/0.01ml Soln (100units/ml) SC SCH ×4 (06:10→22:07)
[2022-01-31] MEDS: cefTRIAXone 1GM/50ML D5W 50 ML IV SCH (09:00)
[2022-01-31] MEDS: RANOLAZINE ER 500 MG TAB PO SCH ×2 (09:48→22:06)
[2022-01-31] MEDS: PANTOPRAZOLE 40 MG TAB PO SCH (09:48)
[2022-01-31] MEDS: DULoxetine HCL 30 MG CAP PO SCH (09:49)
[2022-01-31] MEDS: ASPirin 81 mg TAB PO SCH (09:49)
[2022-01-31] MEDS: dilTIAZem HCL 180MG ER CAP PO SCH (09:50)
[2022-01-31] MEDS: PREGABALIN CAPSULE 75 MG CAP PO SCH ×2 (10:00→22:06)
[2022-01-31] MEDS: MORPHINE SULFATE INJ 2 MG/ml SYRG IV PRN ×2 (12:03→18:31)
[2022-01-31] MEDS: ATORVASTATIN 20 MG TAB PO SCH (22:06)
[2022-02-01] MEDS: TEMAZEPAM 15 MG CAP PO PRN (00:08)
[2022-02-01] MEDS: MORPHINE SULFATE INJ 2 MG/ml SYRG IV PRN (00:09)
[2022-02-01 05:00] VITALS: BP 129/58
[2022-02-01 05:37] LABS: Hemoglobin 12.3 g/dL (12.2-16.2); Mean Corpuscular Hemoglobin 28.2 pg (28.0-32.0); Mean Corpuscular Hgb Conc. 33.2 g/dL (32.0-36.0); Mean Corpuscular Volume 84.8 fL (80.0-100.0); Red Blood Cells 4.36 10^6/uL (4.0-5.20); Red Cell Distribution Width 17.8 % (11.8-14.3); White Blood Cell 10.2 10^3/uL (4.4-10.8)
[2022-02-01 05:49] LABS: INR 1.01 (0.9-1.15); Partial Thromboplastin Time 28.9 sec (24.6-33.4)
[2022-02-01 05:50] LABS: BUN/Creatinine Ratio 7.6; Calcium 8.3 mg/dL (8.5-10.1)
[2022-02-01] MEDS: VANCOMYCIN 1GM/250ML 250 ML IV SCH ×2 (05:50→14:00)
[2022-02-01] MEDS: NYSTATIN (MOUTH-THROAT) 500,000 UNITS/5 ML SUSP MT SCH ×3 (05:50→18:00)
[2022-02-01] MEDS: ACCU-CHEK COMFORT CURVE STRIP VI SCH ×3 (06:05→17:00)
[2022-02-01] MEDS: InsuLIN REG 1unit/0.01ml Soln (100units/ml) SC SCH ×3 (06:06→17:00)
[2022-02-01 06:25] LABS: Basophils % (manual) 0 (0.0-2.0); Blast Cells 0; Metamyelocytes % 0; Myelocytes % 0; Promyelocytes % 0
[2022-02-01 08:00] VITALS: BP 104/49
[2022-02-01] MEDS: cefTRIAXone 1GM/50ML D5W 50 ML IV SCH (09:00)
[2022-02-01 09:09] VITALS: BP 126/51
[2022-02-01] MEDS: ASPirin 81 mg TAB PO SCH (09:45)
[2022-02-01] MEDS ORDERED: ISOSORBIDE MONONITRATE ER 60 MG TAB PO SCH (10:00)
[2022-02-01] MEDS ORDERED: FUROSEMIDE 20 MG TAB PO SCH (10:00)
[2022-02-01] MEDS: PANTOPRAZOLE 40 MG TAB PO SCH (10:48)
[2022-02-01] MEDS: PREGABALIN CAPSULE 75 MG CAP PO SCH (10:48)
[2022-02-01] MEDS: RANOLAZINE ER 500 MG TAB PO SCH (10:48)
[2022-02-01] MEDS: dilTIAZem HCL 180MG ER CAP PO SCH (10:50)
[2022-02-01] MEDS: DULoxetine HCL 30 MG CAP PO SCH (10:51)
[2022-02-01] MEDS ORDERED: DAKINS HALF STR 0.25% (NaHypochlorite) 473 ML TOPICAL SOL TOP ONE (11:30)
[2022-02-01] MEDS ORDERED: LIDOCAINE 1%HCL (LOCAL ANESTH) 10 ML MDV ONE (11:32)
[2022-02-01] MEDS ORDERED: BUPIVACAINE 0.25% INJ 50ML VIAL ONE (11:32)
[2022-02-01] MEDS ORDERED: ceFAZolin 1GM/50ML 100 ML IV ONE (11:41)
[2022-02-01] MEDS ORDERED: fentaNYL CITRATE 100 MCG/2 ML VL ONE (12:28)
[2022-02-01] MEDS ORDERED: MIDAZOLAM HCL 2MG/2ML 2ml VIAL (1mg/ml) ONE (12:28)
[2022-02-01] MEDS ORDERED: DexAMETHasone SOD PHOS 10MG/1ML VIAL INJ ONE (12:32)
[2022-02-01] MEDS ORDERED: PROPOFOL 10 MG/ML 20 ML IV ONE (12:32)
[2022-02-01] MEDS ORDERED: POTASSIUM EFFERVESENT TAB 25 MEQ PO ONE (13:45)
[2022-02-01] MEDS ORDERED: CLIN300C8 PO (13:57)
[2022-02-01] MEDS ORDERED: LACTCAP35 OR (14:18)
[2022-02-01] MEDS ORDERED: HYDR-4902 PO (14:24)
[2022-02-01] MEDS ORDERED: Juven Orange Powder PACKET 27.5gm PO SCH (18:00)
[2022-02-01 18:15] VITALS: BP 126/51
== END 2022-02-01 18:55 | disposition home or self-care (01) | DRG 344 ==
LOC: ER 18:05 → OVERFLOW 21:57 → EAST 01-30 11:59
PROVIDERS: ADMIT Nurse Practitioner; ATTEND Nurse Practitioner Acute Care
PROC: 0JBR0ZZ Excision of Left Foot Subcutaneous Tissue and Fascia, Open Approach (ICD-10-PCS; principal; 2022-02-01 12:30)
DX: E11.621 Type 2 diabetes mellitus with foot ulcer (principal); M86.8X7 Other osteomyelitis, ankle and foot; E11.22 Type 2 diabetes mellitus with diabetic chronic kidney disease; E11.42 Type 2 diabetes mellitus with diabetic polyneuropathy; L97.529 Non-pressure chronic ulcer of other part of left foot with unspecified severity; D72.829 Elevated white blood cell count, unspecified; E11.69 Type 2 diabetes mellitus with other specified complication; E66.01 Morbid (severe) obesity due to excess calories; L03.90 Cellulitis, unspecified; I12.9 Hypertensive chronic kidney disease with stage 1 through stage 4 chronic kidney disease, or unspecified chronic kidney disease; I25.10 Atherosclerotic heart disease of native coronary artery without angina pectoris; Z20.822 Contact with and (suspected) exposure to COVID-19; N18.9 Chronic kidney disease, unspecified; E78.5 Hyperlipidemia, unspecified; F17.210 Nicotine dependence, cigarettes, uncomplicated; Z91.199 Patient's noncompliance with other medical treatment and regimen due to unspecified reason; Z95.1 Presence of aortocoronary bypass graft; Z90.49 Acquired absence of other specified parts of digestive tract; Z83.3 Family history of diabetes mellitus; Z82.49 Family history of ischemic heart disease and other diseases of the circulatory system; Z82.3 Family history of stroke; Z79.4 Long term (current) use of insulin; Z68.42 Body mass index [BMI] 45.0-49.9, adult
CPT/HCPCS: 36415; 71045; 73630; 73700; 74176; 80048; 80053; 80202; 81001; 82565; 82962; 83036; 83690; 84484; 85007; 85027; 85610; 85730; 86850; 86900; 86901; 87040; 87045; 87070; 87075; 87077; 87186; 87205; 87426; 87427; 87493; 93005; 93926; 96365; 96366; 96367; 96375; 96376; G0378; J0690; J0696; J1100; J1815; J2001; J2250; J2405; J2543; J2704; J3490

== ENCOUNTER 2022-03-06 17:03 | Inpatient (IN) | payer MEDICAID ==
[~2022-03-06] VITALS: Ht 172.7 cm; Wt 123.9 kg
[~2022-03-06 17:03] MED LIST changes: +CLIN300C8 PO; +HYDR-4902 PO; +LACTCAP35 OR; +POTA-167 PO; -POTA1TAB4 PO; +TRAM50TA2 PO
[2022-03-06 19:01] LABS: Basophils # (auto) 0.2 10 ^3/uL (0-0.2); Basophils % (auto) 1.2 % (0.0-2.0); Eosinophils # (auto) 0.2 10 ^3/uL (0-0.8); Eosinophils % (auto) 1.3 % (0.0-7.0); Hematocrit 42.8 % (36.0-46.0); Hemoglobin 14.2 g/dL (12.2-16.2); Lymphocytes # (auto) 3.1 10 ^3/uL (0.4-5.4); Lymphocytes % (auto) 19.9 % (10.0-50.0); Mean Corpuscular Hemoglobin 27.9 pg (28.0-32.0); Mean Corpuscular Hgb Conc. 33.1 g/dL (32.0-36.0); Mean Corpuscular Volume 84.3 fL (80.0-100.0); Monocytes # (auto) 0.9 10 ^3/uL (0-1.3); Monocytes % (auto) 5.7 % (0.0-12.0); Neutrophils # (auto) 11.1 10 ^3/uL (1.6-8.6); Neutrophils % (auto) 71.9 % (37.0-80.0); Nucleated Red Blood Cells % 0.1 %; Red Blood Cells 5.08 10^6/uL (4.0-5.20); Red Cell Distribution Width 17.4 % (11.8-14.3); White Blood Cell 15.5 10^3/uL (4.4-10.8)
[2022-03-06] MEDS ORDERED: CLINDAMYCIN 600MG IV 50 ML IV ONE (19:15)
[2022-03-06 19:19] LABS: Albumin 3.6 g/dL (3.4-5.0); Calcium 9.7 mg/dL (8.5-10.1); Potassium 3.6 mmol/L (3.5-5.1)
[2022-03-06 19:22] LABS: Bilirubin, Total 1.1 mg/dL (0.2-1.0); Total Protein 7.6 g/dL (6.4-8.2)
[2022-03-06 19:48] LABS: INR 0.96 (0.9-1.15); Partial Thromboplastin Time 31.6 sec (24.6-33.4)
[2022-03-06] MEDS ORDERED: DEXTROSE (50%) 50ML SYRG IV PRN (21:30)
[2022-03-06] MEDS ORDERED: ONDANSETRON HCL 4 MG/2 ML VIAL IV PRN (21:30)
[2022-03-06] MEDS ORDERED: cefTRIAXone 1GM/50ML D5W 50 ML IV ONE (21:30)
[2022-03-06] MEDS ORDERED: ACETAMINOPHEN 325 MG TAB PO PRN (21:30)
[2022-03-06] MEDS: HYDROcodone-ACET 5/325MG TAB PO PRN (23:01)
[2022-03-06] MEDS: DULoxetine HCL 30 MG CAP PO SCH (23:02)
[2022-03-06] MEDS: RANOLAZINE ER 500 MG TAB PO SCH (23:02)
[2022-03-06] MEDS: ATORVASTATIN 20 MG TAB PO SCH (23:02)
[2022-03-06] MEDS: ACCU-CHEK COMFORT CURVE STRIP VI SCH (23:03)
[2022-03-06 23:04] VITALS: BP 151/91
[2022-03-06 23:24] VITALS: BP 157/91
[2022-03-07] MEDS: InsuLIN REG 1unit/0.01ml Soln (100units/ml) SC SCH ×5 (00:24→22:26)
[2022-03-07] MEDS: TEMAZEPAM 15 MG CAP PO PRN ×2 (01:32→22:24)
[2022-03-07 01:49] LABS: Urine Bacteria FEW /hpf (None Seen); Urine Blood Negative /uL (Negative); Urine Mucus FEW (None Seen); Urine WBC 3 /hpf (0 - 5)
[2022-03-07 05:25] VITALS: BP 138/92
[2022-03-07] MEDS: HYDROcodone-ACET 5/325MG TAB PO PRN ×4 (05:39→22:22)
[2022-03-07] MEDS: FUROSEMIDE 20 MG TAB PO SCH ×2 (05:39→18:10)
[2022-03-07] MEDS: CLINDAMYCIN 600MG IV 50 ML IV SCH ×3 (05:40→22:23)
[2022-03-07 06:04] LABS: Basophils # (auto) 0.1 10 ^3/uL (0-0.2); Basophils % (auto) 0.8 % (0.0-2.0); Eosinophils # (auto) 0.2 10 ^3/uL (0-0.8); Eosinophils % (auto) 1.7 % (0.0-7.0); Hematocrit 38.6 % (36.0-46.0); Hemoglobin 12.8 g/dL (12.2-16.2); Lymphocytes # (auto) 2.2 10 ^3/uL (0.4-5.4); Lymphocytes % (auto) 22.4 % (10.0-50.0); Mean Corpuscular Hemoglobin 28.1 pg (28.0-32.0); Mean Corpuscular Hgb Conc. 33.2 g/dL (32.0-36.0); Mean Corpuscular Volume 84.4 fL (80.0-100.0); Monocytes # (auto) 0.6 10 ^3/uL (0-1.3); Monocytes % (auto) 5.8 % (0.0-12.0); Neutrophils # (auto) 6.8 10 ^3/uL (1.6-8.6); Neutrophils % (auto) 69.3 % (37.0-80.0); Red Blood Cells 4.57 10^6/uL (4.0-5.20); Red Cell Distribution Width 17.5 % (11.8-14.3); White Blood Cell 9.9 10^3/uL (4.4-10.8)
[2022-03-07] MEDS: ACCU-CHEK COMFORT CURVE STRIP VI SCH ×4 (06:16→22:19)
[2022-03-07 06:20] LABS: BUN/Creatinine Ratio 15.4; Calcium 9.3 mg/dL (8.5-10.1); Potassium 3.4 mmol/L (3.5-5.1)
[2022-03-07 08:00] VITALS: BP_SYST 117; BP_SYST 135; BP_DIAS 42; BP_DIAS 83
[2022-03-07] MEDS: dilTIAZem 120MG ER CAP PO SCH (10:22)
[2022-03-07] MEDS: ASPirin 81 mg TAB PO SCH (10:24)
[2022-03-07] MEDS: DULoxetine HCL 30 MG CAP PO SCH ×2 (10:24→22:24)
[2022-03-07] MEDS: ISOSORBIDE MONONITRATE ER 60 MG TAB PO SCH (10:24)
[2022-03-07] MEDS: ENOXAPARIN SOD 40 MG/0.4 ML SYRINGE SC SCH (10:25)
[2022-03-07] MEDS: RANOLAZINE ER 500 MG TAB PO SCH ×2 (10:25→22:17)
[2022-03-07] MEDS: PANTOPRAZOLE 40 MG TAB PO SCH (10:25)
[2022-03-07 12:00] VITALS: BP 113/64
[2022-03-07] MEDS: PREGABALIN CAPSULE 75 MG CAP PO SCH ×2 (14:34→22:18)
[2022-03-07] MEDS: PREGABALIN 25 MG CAP PO SCH ×2 (14:34→22:18)
[2022-03-07 15:59] VITALS: BP 114/69
[2022-03-07 20:00] VITALS: BP 125/73
[2022-03-07 22:00] VITALS: BP 125/73
[2022-03-07] MEDS: cefTRIAXone 1GM/50ML D5W 50 ML IV SCH (22:22)
[2022-03-07] MEDS: ATORVASTATIN 20 MG TAB PO SCH (22:24)
[2022-03-08] VITALS (7 sets, daily range): BP systolic 92–135; BP diastolic 44–88
[2022-03-08] MEDS: PREGABALIN 25 MG CAP PO SCH ×3 (06:21→21:54)
[2022-03-08] MEDS: CLINDAMYCIN 600MG IV 50 ML IV SCH ×3 (06:21→21:54)
[2022-03-08] MEDS: ACCU-CHEK COMFORT CURVE STRIP VI SCH ×3 (06:21→18:10)
[2022-03-08] MEDS: PREGABALIN CAPSULE 75 MG CAP PO SCH ×3 (06:29→21:53)
[2022-03-08 06:46] LABS: Basophils # (auto) 0.1 10 ^3/uL (0-0.2); Basophils % (auto) 1.3 % (0.0-2.0); Eosinophils # (auto) 0.3 10 ^3/uL (0-0.8); Eosinophils % (auto) 3.3 % (0.0-7.0); Hematocrit 38.8 % (36.0-46.0); Hemoglobin 12.7 g/dL (12.2-16.2); Lymphocytes # (auto) 2.7 10 ^3/uL (0.4-5.4); Lymphocytes % (auto) 31.6 % (10.0-50.0); Mean Corpuscular Hemoglobin 27.6 pg (28.0-32.0); Mean Corpuscular Hgb Conc. 32.8 g/dL (32.0-36.0); Mean Corpuscular Volume 84.3 fL (80.0-100.0); Monocytes # (auto) 0.5 10 ^3/uL (0-1.3); Monocytes % (auto) 6.1 % (0.0-12.0); Neutrophils # (auto) 4.9 10 ^3/uL (1.6-8.6); Neutrophils % (auto) 57.7 % (37.0-80.0); Nucleated Red Blood Cells % 0.2 %; Red Blood Cells 4.61 10^6/uL (4.0-5.20); Red Cell Distribution Width 16.8 % (11.8-14.3); White Blood Cell 8.6 10^3/uL (4.4-10.8)
[2022-03-08] MEDS: InsuLIN REG 1unit/0.01ml Soln (100units/ml) SC SCH ×3 (06:48→18:36)
[2022-03-08] MEDS: FUROSEMIDE 20 MG TAB PO SCH ×2 (06:49→18:10)
[2022-03-08 07:23] LABS: Calcium 8.7 mg/dL (8.5-10.1)
[2022-03-08] MEDS: ASPirin 81 mg TAB PO SCH (10:00)
[2022-03-08] MEDS: PANTOPRAZOLE 40 MG TAB PO SCH (10:00)
[2022-03-08] MEDS: ISOSORBIDE MONONITRATE ER 60 MG TAB PO SCH (10:01)
[2022-03-08] MEDS: DULoxetine HCL 30 MG CAP PO SCH ×2 (10:01→21:54)
[2022-03-08] MEDS: RANOLAZINE ER 500 MG TAB PO SCH ×2 (10:01→21:53)
[2022-03-08] MEDS: dilTIAZem 120MG ER CAP PO SCH (10:02)
[2022-03-08] MEDS: ENOXAPARIN SOD 40 MG/0.4 ML SYRINGE SC SCH (10:02)
[2022-03-08] MEDS ORDERED: DEXTROSE (50%) 50ML SYRG IV PRN (13:45)
[2022-03-08] MEDS: HYDROcodone-ACET 7.5/325MG TAB PO PRN ×2 (14:13→18:14)
[2022-03-08] MEDS: TEMAZEPAM 15 MG CAP PO PRN (21:53)
[2022-03-08] MEDS: ATORVASTATIN 20 MG TAB PO SCH (21:53)
[2022-03-08] MEDS: cefTRIAXone 1GM/50ML D5W 50 ML IV SCH (21:54)
[2022-03-09] VITALS (8 sets, daily range): BP systolic 101–137; BP diastolic 51–73
[2022-03-09] MEDS: ACCU-CHEK COMFORT CURVE STRIP VI SCH ×5 (00:18→22:54)
[2022-03-09] MEDS: InsuLIN REG 1unit/0.01ml Soln (100units/ml) SC SCH ×5 (00:19→22:54)
[2022-03-09] MEDS: PREGABALIN CAPSULE 75 MG CAP PO SCH ×3 (05:44→22:41)
[2022-03-09] MEDS: PREGABALIN 25 MG CAP PO SCH ×3 (05:44→22:41)
[2022-03-09] MEDS: CLINDAMYCIN 600MG IV 50 ML IV SCH ×2 (05:45→13:45)
[2022-03-09] MEDS: FUROSEMIDE 20 MG TAB PO SCH (05:46)
[2022-03-09] MEDS: HYDROcodone-ACET 7.5/325MG TAB PO PRN (08:14)
[2022-03-09] MEDS: ISOSORBIDE MONONITRATE ER 60 MG TAB PO SCH (09:34)
[2022-03-09] MEDS: PANTOPRAZOLE 40 MG TAB PO SCH (09:35)
[2022-03-09] MEDS: ASPirin 81 mg TAB PO SCH (09:35)
[2022-03-09] MEDS: RANOLAZINE ER 500 MG TAB PO SCH ×2 (09:35→22:42)
[2022-03-09] MEDS: DULoxetine HCL 30 MG CAP PO SCH ×2 (09:36→22:42)
[2022-03-09] MEDS: dilTIAZem 120MG ER CAP PO SCH (09:36)
[2022-03-09] MEDS: ENOXAPARIN SOD 40 MG/0.4 ML SYRINGE SC SCH (09:36)
[2022-03-09] MEDS ORDERED: MORPHINE SULFATE INJ 2 MG/ml SYRG IV PRN (10:15)
[2022-03-09 11:15] LABS: Basophils # (auto) 0.1 10 ^3/uL (0-0.2); Basophils % (auto) 1.2 % (0.0-2.0); Eosinophils # (auto) 0 10 ^3/uL (0-0.8); Eosinophils % (auto) 0.5 % (0.0-7.0); Hemoglobin 12.7 g/dL (12.2-16.2); Lymphocytes # (auto) 0.9 10 ^3/uL (0.4-5.4); Lymphocytes % (auto) 12.8 % (10.0-50.0); Mean Corpuscular Hemoglobin 27.6 pg (28.0-32.0); Mean Corpuscular Hgb Conc. 32.6 g/dL (32.0-36.0); Mean Corpuscular Volume 84.6 fL (80.0-100.0); Monocytes # (auto) 0.6 10 ^3/uL (0-1.3); Monocytes % (auto) 7.9 % (0.0-12.0); Neutrophils # (auto) 5.5 10 ^3/uL (1.6-8.6); Neutrophils % (auto) 77.6 % (37.0-80.0); Nucleated Red Blood Cells % 0.2 %; Red Blood Cells 4.61 10^6/uL (4.0-5.20); Red Cell Distribution Width 17.1 % (11.8-14.3); White Blood Cell 7.1 10^3/uL (4.4-10.8)
[2022-03-09] MEDS: HYDROcodone-ACET 10/325MG TAB PO PRN ×2 (13:38→20:20)
[2022-03-09] MEDS: FUROSEMIDE 20 MG/2 ML VIAL IV SCH (15:15)
[2022-03-09] MEDS: guaiFENesin-DM 100/10mg/5ml SYR PO PRN (17:34)
[2022-03-09] MEDS: Juven Orange Powder PACKET 27.5gm PO SCH (20:44)
[2022-03-09] MEDS: ATORVASTATIN 20 MG TAB PO SCH (22:42)
[2022-03-10] VITALS (7 sets, daily range): BP systolic 102–132; BP diastolic 58–76
[2022-03-10] MEDS: guaiFENesin-DM 100/10mg/5ml SYR PO PRN (00:34)
[2022-03-10] MEDS: HYDROcodone-ACET 10/325MG TAB PO PRN ×3 (00:34→21:54)
[2022-03-10] MEDS: cefTRIAXone 1GM/50ML D5W 50 ML IV SCH ×2 (00:34→21:53)
[2022-03-10] MEDS: CLINDAMYCIN 600MG IV 50 ML IV SCH ×2 (01:27→06:14)
[2022-03-10] MEDS ORDERED: IPRATROPIUM BROM 0.5 MG/2.5ML INH SOL ONE (01:52)
[2022-03-10] MEDS ORDERED: ALBUTEROL SULF 2.5 MG/0.5ML(0.5%) NEB SOLN ONE (01:52)
[2022-03-10] MEDS ORDERED: IPRATROPIUM BROM 0.5 MG/2.5ML INH SOL NEB PRN (03:30)
[2022-03-10] MEDS ORDERED: ALBUTEROL SULF 2.5 MG/0.5ML(0.5%) NEB SOLN NEB PRN (03:30)
[2022-03-10] MEDS: PREGABALIN 25 MG CAP PO SCH ×3 (06:13→21:53)
[2022-03-10] MEDS: PREGABALIN CAPSULE 75 MG CAP PO SCH ×3 (06:14→21:53)
[2022-03-10] MEDS: ACCU-CHEK COMFORT CURVE STRIP VI SCH ×4 (06:22→23:03)
[2022-03-10] MEDS: InsuLIN REG 1unit/0.01ml Soln (100units/ml) SC SCH ×4 (06:23→23:03)
[2022-03-10] MEDS: Juven Orange Powder PACKET 27.5gm PO SCH (08:00)
[2022-03-10] MEDS: ENOXAPARIN SOD 40 MG/0.4 ML SYRINGE SC SCH (08:30)
[2022-03-10] MEDS: PANTOPRAZOLE 40 MG TAB PO SCH (08:30)
[2022-03-10] MEDS: ASPirin 81 mg TAB PO SCH (08:32)
[2022-03-10] MEDS: DULoxetine HCL 30 MG CAP PO SCH ×2 (08:33→21:54)
[2022-03-10] MEDS: RANOLAZINE ER 500 MG TAB PO SCH ×2 (08:35→21:52)
[2022-03-10] MEDS: FUROSEMIDE 20 MG/2 ML VIAL IV SCH (08:36)
[2022-03-10] MEDS: dilTIAZem 120MG ER CAP PO SCH (08:37)
[2022-03-10] MEDS: ISOSORBIDE MONONITRATE ER 60 MG TAB PO SCH (08:38)
[2022-03-10] MEDS ORDERED: VANCOMYCIN PER PHARMACY 0 MG IV SCH (12:45)
[2022-03-10] MEDS ORDERED: VANCOMYCIN 1GM/250ML 250 ML IV ONE (13:15)
[2022-03-10] MEDS ORDERED: IOHEXOL 350 MG/ML 100ML IJ ONE (14:01)
[2022-03-10] MEDS: ATORVASTATIN 20 MG TAB PO SCH (21:54)
[2022-03-10] MEDS: VANCOMYCIN 1GM/250ML 250 ML IV SCH (22:49)
[2022-03-11 05:03] VITALS: BP 121/49
[2022-03-11] MEDS: PREGABALIN 25 MG CAP PO SCH ×3 (06:30→22:11)
[2022-03-11] MEDS: PREGABALIN CAPSULE 75 MG CAP PO SCH ×3 (06:30→22:11)
[2022-03-11] MEDS: VANCOMYCIN 1GM/250ML 250 ML IV SCH ×3 (06:30→23:31)
[2022-03-11] MEDS: HYDROcodone-ACET 10/325MG TAB PO PRN (06:31)
[2022-03-11] MEDS: ACCU-CHEK COMFORT CURVE STRIP VI SCH ×4 (06:33→23:25)
[2022-03-11] MEDS: InsuLIN REG 1unit/0.01ml Soln (100units/ml) SC SCH ×4 (06:33→23:26)
[2022-03-11 08:47] VITALS: BP 137/70
[2022-03-11] MEDS: FUROSEMIDE 20 MG/2 ML VIAL IV SCH (09:28)
[2022-03-11] MEDS: ENOXAPARIN SOD 40 MG/0.4 ML SYRINGE SC SCH (09:28)
[2022-03-11] MEDS: DULoxetine HCL 30 MG CAP PO SCH ×2 (09:29→22:11)
[2022-03-11] MEDS: dilTIAZem 120MG ER CAP PO SCH (09:29)
[2022-03-11] MEDS: ISOSORBIDE MONONITRATE ER 60 MG TAB PO SCH (09:29)
[2022-03-11] MEDS: PANTOPRAZOLE 40 MG TAB PO SCH (09:29)
[2022-03-11] MEDS: ASPirin 81 mg TAB PO SCH (09:30)
[2022-03-11] MEDS: RANOLAZINE ER 500 MG TAB PO SCH ×2 (09:30→22:12)
[2022-03-11] MEDS: methylPREDNISolone SOD SUCC 40 MG/ML VL IV SCH ×2 (10:59→22:11)
[2022-03-11 12:41] VITALS: BP 94/38
[2022-03-11 17:30] VITALS: BP_DIAS 123
[2022-03-11 22:00] VITALS: BP 93/49
[2022-03-11] MEDS: cefTRIAXone 1GM/50ML D5W 50 ML IV SCH (22:10)
[2022-03-11] MEDS: ATORVASTATIN 20 MG TAB PO SCH (22:12)
[2022-03-11] MEDS: guaiFENesin-DM 100/10mg/5ml SYR PO PRN (23:30)
[2022-03-12 05:00] VITALS: BP 117/69
[2022-03-12] MEDS: ACCU-CHEK COMFORT CURVE STRIP VI SCH ×4 (05:49→23:43)
[2022-03-12] MEDS: PREGABALIN 25 MG CAP PO SCH ×3 (05:57→21:31)
[2022-03-12] MEDS: PREGABALIN CAPSULE 75 MG CAP PO SCH ×3 (05:57→21:31)
[2022-03-12] MEDS: VANCOMYCIN 1GM/250ML 250 ML IV SCH ×4 (05:58→23:31)
[2022-03-12] MEDS: InsuLIN REG 1unit/0.01ml Soln (100units/ml) SC SCH ×4 (06:02→23:48)
[2022-03-12 08:17] LABS: Basophils # (auto) 0 10 ^3/uL (0-0.2); Basophils % (auto) 0.2 % (0.0-2.0); Eosinophils # (auto) 0 10 ^3/uL (0-0.8); Hematocrit 40.2 % (36.0-46.0); Hemoglobin 13.3 g/dL (12.2-16.2); Lymphocytes # (auto) 0.8 10 ^3/uL (0.4-5.4); Lymphocytes % (auto) 26.7 % (10.0-50.0); Mean Corpuscular Hemoglobin 27.4 pg (28.0-32.0); Mean Corpuscular Hgb Conc. 33.2 g/dL (32.0-36.0); Mean Corpuscular Volume 82.7 fL (80.0-100.0); Monocytes # (auto) 0.3 10 ^3/uL (0-1.3); Monocytes % (auto) 8.6 % (0.0-12.0); Neutrophils # (auto) 1.9 10 ^3/uL (1.6-8.6); Neutrophils % (auto) 64.5 % (37.0-80.0); Nucleated Red Blood Cells % 0.2 %; Red Blood Cells 4.86 10^6/uL (4.0-5.20); Red Cell Distribution Width 16.8 % (11.8-14.3)
[2022-03-12 08:22] LABS: Calcium 8.9 mg/dL (8.5-10.1); Potassium 3.2 mmol/L (3.5-5.1)
[2022-03-12] MEDS ORDERED: POTASSIUM EFFERVESENT TAB 25 MEQ PO ONE (09:00)
[2022-03-12 09:21] VITALS: BP 106/46
[2022-03-12] MEDS: methylPREDNISolone SOD SUCC 40 MG/ML VL IV SCH ×2 (09:23→21:30)
[2022-03-12] MEDS: ENOXAPARIN SOD 40 MG/0.4 ML SYRINGE SC SCH (09:24)
[2022-03-12] MEDS: RANOLAZINE ER 500 MG TAB PO SCH ×2 (09:24→21:31)
[2022-03-12] MEDS: PANTOPRAZOLE 40 MG TAB PO SCH (09:24)
[2022-03-12] MEDS: guaiFENesin-CODEINE Liq 5 ML UD PO PRN ×2 (09:24→18:27)
[2022-03-12] MEDS: DULoxetine HCL 30 MG CAP PO SCH ×2 (09:25→21:31)
[2022-03-12] MEDS: dilTIAZem 120MG ER CAP PO SCH (09:25)
[2022-03-12] MEDS: ASPirin 81 mg TAB PO SCH (09:25)
[2022-03-12] MEDS: ISOSORBIDE MONONITRATE ER 60 MG TAB PO SCH (09:26)
[2022-03-12] MEDS: FUROSEMIDE 20 MG/2 ML VIAL IV SCH (09:26)
[2022-03-12 13:00] VITALS: BP 118/53
[2022-03-12 17:00] VITALS: BP 109/61
[2022-03-12] MEDS: HYDROcodone-ACET 10/325MG TAB PO PRN ×2 (18:27→23:32)
[2022-03-12] MEDS: cefTRIAXone 1GM/50ML D5W 50 ML IV SCH (21:32)
[2022-03-12] MEDS: ATORVASTATIN 20 MG TAB PO SCH (21:32)
[2022-03-12] MEDS: DAKINS QUARTER STR 0.125% (NaHypochlorite) 473 ML TOPICAL SOL TOP SCH (21:34)
[2022-03-12 22:00] VITALS: BP 101/47
[2022-03-13] MEDS: guaiFENesin-CODEINE Liq 5 ML UD PO PRN (00:06)
[2022-03-13 05:00] VITALS: BP 100/42
[2022-03-13] MEDS: PREGABALIN CAPSULE 75 MG CAP PO SCH ×2 (05:33→14:41)
[2022-03-13] MEDS: PREGABALIN 25 MG CAP PO SCH ×2 (05:33→14:41)
[2022-03-13] MEDS: ACCU-CHEK COMFORT CURVE STRIP VI SCH ×3 (05:41→17:56)
[2022-03-13] MEDS: InsuLIN REG 1unit/0.01ml Soln (100units/ml) SC SCH ×3 (05:42→17:57)
[2022-03-13 05:50] LABS: Basophils # (auto) 0 10 ^3/uL (0-0.2); Basophils % (auto) 0.1 % (0.0-2.0); Eosinophils # (auto) 0 10 ^3/uL (0-0.8); Hematocrit 37.9 % (36.0-46.0); Hemoglobin 12.7 g/dL (12.2-16.2); Lymphocytes # (auto) 0.9 10 ^3/uL (0.4-5.4); Lymphocytes % (auto) 14.6 % (10.0-50.0); Mean Corpuscular Hemoglobin 27.7 pg (28.0-32.0); Mean Corpuscular Hgb Conc. 33.6 g/dL (32.0-36.0); Mean Corpuscular Volume 82.5 fL (80.0-100.0); Monocytes # (auto) 0.3 10 ^3/uL (0-1.3); Monocytes % (auto) 4.9 % (0.0-12.0); Neutrophils # (auto) 4.9 10 ^3/uL (1.6-8.6); Neutrophils % (auto) 80.4 % (37.0-80.0); Red Blood Cells 4.59 10^6/uL (4.0-5.20); Red Cell Distribution Width 16.3 % (11.8-14.3); White Blood Cell 6.1 10^3/uL (4.4-10.8)
[2022-03-13 05:55] LABS: Calcium 8.9 mg/dL (8.5-10.1); Potassium 3.7 mmol/L (3.5-5.1)
[2022-03-13] MEDS: VANCOMYCIN 1GM/250ML 250 ML IV SCH ×2 (06:04→14:41)
[2022-03-13] MEDS: HYDROcodone-ACET 10/325MG TAB PO PRN ×2 (06:16→10:58)
[2022-03-13 08:30] VITALS: BP 102/60
[2022-03-13] MEDS: FUROSEMIDE 20 MG/2 ML VIAL IV SCH (10:42)
[2022-03-13] MEDS: methylPREDNISolone SOD SUCC 40 MG/ML VL IV SCH (10:43)
[2022-03-13] MEDS: ASPirin 81 mg TAB PO SCH (10:43)
[2022-03-13] MEDS: DULoxetine HCL 30 MG CAP PO SCH (10:44)
[2022-03-13] MEDS: dilTIAZem 120MG ER CAP PO SCH (10:44)
[2022-03-13] MEDS: PANTOPRAZOLE 40 MG TAB PO SCH (10:45)
[2022-03-13] MEDS: ENOXAPARIN SOD 40 MG/0.4 ML SYRINGE SC SCH (10:45)
[2022-03-13] MEDS: ISOSORBIDE MONONITRATE ER 60 MG TAB PO SCH (10:45)
[2022-03-13] MEDS: DAKINS QUARTER STR 0.125% (NaHypochlorite) 473 ML TOPICAL SOL TOP SCH (10:46)
[2022-03-13] MEDS: RANOLAZINE ER 500 MG TAB PO SCH (10:51)
[2022-03-13] MEDS ORDERED: AMOX-277 PO (11:38)
[2022-03-13] MEDS ORDERED: SACC1CAP3 PO (11:38)
[2022-03-13] MEDS ORDERED: HYDR-4798 PO (11:38)
[2022-03-13 12:30] VITALS: BP 134/79
[2022-03-13 16:30] VITALS: BP 103/58
[2022-03-13] MEDS ORDERED: VANCOMYCIN 1GM/250ML 250 ML IV SCH (17:00)
[2022-03-13 17:11] VITALS: BP 134/79
== END 2022-03-13 17:30 | disposition home or self-care (01) | DRG 720 ==
LOC: ER 17:03 → OVERFLOW 21:39 → CENTRAL 22:40
PROVIDERS: ADMIT Nurse Practitioner; ATTEND Nurse Practitioner Acute Care
DX: A41.9 Sepsis, unspecified organism (principal); J96.01 Acute respiratory failure with hypoxia; J18.9 Pneumonia, unspecified organism; E11.621 Type 2 diabetes mellitus with foot ulcer; L97.529 Non-pressure chronic ulcer of other part of left foot with unspecified severity; E66.01 Morbid (severe) obesity due to excess calories; I10 Essential (primary) hypertension; Z68.41 Body mass index [BMI] 40.0-44.9, adult; J44.1 Chronic obstructive pulmonary disease with (acute) exacerbation; B95.2 Enterococcus as the cause of diseases classified elsewhere; I25.10 Atherosclerotic heart disease of native coronary artery without angina pectoris; S91.302A Unspecified open wound, left foot, initial encounter; Z20.822 Contact with and (suspected) exposure to COVID-19; X58.XXXA Exposure to other specified factors, initial encounter; E11.65 Type 2 diabetes mellitus with hyperglycemia; K21.9 Gastro-esophageal reflux disease without esophagitis; E11.42 Type 2 diabetes mellitus with diabetic polyneuropathy; L08.9 Local infection of the skin and subcutaneous tissue, unspecified; R65.20 Severe sepsis without septic shock; Z79.4 Long term (current) use of insulin; Z88.8 Allergy status to other drugs, medicaments and biological substances; Z90.49 Acquired absence of other specified parts of digestive tract; Z95.1 Presence of aortocoronary bypass graft; Y93.89 Activity, other specified; Y92.89 Other specified places as the place of occurrence of the external cause; Y99.8 Other external cause status
CPT/HCPCS: 36415; 36600; 71045; 71275; 73700; 80048; 80053; 80202; 81001; 82565; 82805; 82962; 85025; 85610; 85730; 87040; 87077; 87081; 87186; 87205; 87426; 87804; 96365; G0378; J0696; J1815; J3490

== ENCOUNTER → 2022-05-26 | Outpatient (CLI) | payer OTHER ==
[~2022-05-26] VITALS: Ht 172.7 cm; Wt 121.1 kg
[~2022-05-26] MED LIST changes: +ADENOSINE 102 MG in GIVE UN-DILUTED 0 ML IV ONE; +ADENOSINE 90 MG/30 ML INJ IV ONE; +AMOX-277 PO; +SACC1CAP3 PO
== END | disposition home or self-care (01) ==
LOC: Rad HDHVI 08:33
PROVIDERS: ATTEND Internal Medicine Cardiovascular Disease
DX: I25.10 Atherosclerotic heart disease of native coronary artery without angina pectoris (principal); R06.02 Shortness of breath; R42 Dizziness and giddiness; I10 Essential (primary) hypertension; J44.9 Chronic obstructive pulmonary disease, unspecified; E66.9 Obesity, unspecified; E11.9 Type 2 diabetes mellitus without complications; E78.5 Hyperlipidemia, unspecified; R07.9 Chest pain, unspecified; I25.2 Old myocardial infarction; F17.210 Nicotine dependence, cigarettes, uncomplicated; Z82.49 Family history of ischemic heart disease and other diseases of the circulatory system; Z79.84 Long term (current) use of oral hypoglycemic drugs; Z79.82 Long term (current) use of aspirin; Z79.899 Other long term (current) drug therapy
CPT/HCPCS: 78452; 93005; 96374; 96375; A9500; J0153

== ENCOUNTER → 2022-06-21 | Outpatient (CLI) | payer OTHER ==
[~2022-06-21] MED LIST changes: -ADENOSINE 102 MG in GIVE UN-DILUTED 0 ML IV ONE; -ADENOSINE 90 MG/30 ML INJ IV ONE
== END | disposition home or self-care (01) ==
LOC: Rad HDHVI 09:02
PROVIDERS: ATTEND Internal Medicine Cardiovascular Disease
DX: I10 Essential (primary) hypertension (principal); R07.89 Other chest pain
CPT/HCPCS: 93880; 93925

== ENCOUNTER 2022-07-07 17:08 | Inpatient (IN) | payer OTHER, MEDICAID ==
[~2022-07-07] VITALS: Ht 172.7 cm; Wt 125.8 kg
[2022-07-07] MEDS ORDERED: methylPREDNISolone SOD SUCC 125 MG/2 ML VL IV ONE (17:30)
[2022-07-07 18:22] LABS: Hematocrit 46.2 % (36.0-46.0); Hemoglobin 15.7 g/dL (12.2-16.2); Mean Corpuscular Hemoglobin 28.8 pg (28.0-32.0); Mean Corpuscular Hgb Conc. 34.1 g/dL (32.0-36.0); Mean Corpuscular Volume 84.6 fL (80.0-100.0); Red Blood Cells 5.47 10^6/uL (4.0-5.20); Red Cell Distribution Width 16.7 % (11.8-14.3); White Blood Cell 26.7 10^3/uL (4.4-10.8)
[2022-07-07 18:32] LABS: Basophils % (manual) 0 (0.0-2.0); Blast Cells 0; Eosinophils % (manual) 0 (0-7); Metamyelocytes % 0; Myelocytes % 0; Promyelocytes % 0
[2022-07-07 18:37] LABS: Potassium 3.4 mmol/L (3.5-5.1)
[2022-07-07 18:42] LABS: BUN/Creatinine Ratio 11.5; Bilirubin, Total 0.4 mg/dL (0.2-1.0); Total Protein 6.2 g/dL (6.4-8.2)
[2022-07-07 19:06] LABS: Magnesium 0.8 mg/dL (1.6-2.6)
[2022-07-07 19:36] LABS: Band Neutrophils % (manual) 5; Lymphocytes % (manual) 18 (10.0-50.0); Monocytes % (manual) 3 (0-12); Reactive Lymphocytes 8
[2022-07-07] MEDS ORDERED: MORPHINE SULFATE INJ 2 MG/ml SYRG IV PRN (23:45)
[2022-07-07] MEDS ORDERED: ALBUMIN 25% 100 ML IV ONE (23:45)
[2022-07-07] MEDS ORDERED: DOCUSATE SOD 100 MG CAP PO PRN (23:45)
[2022-07-07] MEDS ORDERED: ACETAMINOPHEN 325 MG TAB PO PRN (23:45)
[2022-07-07] MEDS ORDERED: ONDANSETRON HCL 4 MG/2 ML VIAL IV PRN (23:45)
[2022-07-07] MEDS ORDERED: POTASSIUM CHL 20 Meq TABLET PO ONE (23:45)
[2022-07-07] MEDS ORDERED: cefTRIAXone 1GM/50ML D5W 50 ML IV ONE (23:45)
[2022-07-07] MEDS ORDERED: NITROGLYCERIN 0.4 MG SL TAB SL PRN (23:45)
[2022-07-07] MEDS ORDERED: DEXTROSE (50%) 50ML SYRG IV PRN (23:45)
[2022-07-08] MEDS: SODIUM CHLORIDE 0.9% 1,000 ML IV SCH ×2 (00:15→16:27)
[2022-07-08] MEDS: MAGNESIUM SULFATE 1GM/100ML 100 ML IV SCH ×3 (00:15→03:07)
[2022-07-08] MEDS: HYDROcodone-ACET 5/325MG TAB PO PRN ×2 (00:39→09:20)
[2022-07-08] MEDS ORDERED: InsuLIN REG 1unit/0.01ml Soln (100units/ml) SC ONE (00:45)
[2022-07-08] MEDS ORDERED: methylPREDNISolone SOD SUCC 40 MG/ML VL IV SCH (06:00)
[2022-07-08 06:14] LABS: Chloride 104 mmol/L (98-107); Potassium 3.3 mmol/L (3.5-5.1); Sodium 135 mmol/L (136-145)
[2022-07-08 06:18] LABS: Alanine Aminotransferase 15 U/L (13-56); Albumin 3.2 g/dL (3.4-5.0); Anion Gap 10 (5-15); Aspartate Aminotransferase < 3 U/L (15-37); BUN/Creatinine Ratio 15.6; Blood Urea Nitrogen 20 mg/dL (7-18); Calcium 8.2 mg/dL (8.5-10.1); Carbon Dioxide 21 mmol/L (21-32); GFR African American 56 mL/min; GFR Non-African American 46 mL/min; Glucose 225 mg/dL (74-106)
[2022-07-08 06:20] LABS: Alkaline Phosphatase 242 U/L (45-117); Bilirubin, Total 0.4 mg/dL (0.2-1.0); Total Protein 6.4 g/dL (6.4-8.2)
[2022-07-08 06:21] LABS: Hematocrit 41.7 % (36.0-46.0); Mean Corpuscular Hemoglobin 28.8 pg (28.0-32.0); Mean Corpuscular Hgb Conc. 33.6 g/dL (32.0-36.0); Mean Corpuscular Volume 85.8 fL (80.0-100.0); Red Blood Cells 4.87 10^6/uL (4.0-5.20); Red Cell Distribution Width 16.8 % (11.8-14.3); White Blood Cell 22.3 10^3/uL (4.4-10.8)
[2022-07-08 06:28] LABS: Monocytes % (manual) 0 (0-12)
[2022-07-08 06:30] LABS: Basophils % (manual) 0 (0.0-2.0); Blast Cells 0; Metamyelocytes % 0; Myelocytes % 0; Promyelocytes % 0; Reactive Lymphocytes 0
[2022-07-08] MEDS: ACCU-CHEK COMFORT CURVE STRIP VI SCH ×4 (06:49→22:17)
[2022-07-08] MEDS: InsuLIN REG 1unit/0.01ml Soln (100units/ml) SC SCH ×4 (06:50→22:16)
[2022-07-08 07:02] LABS: Band Neutrophils % (manual) 13; Eosinophils % (manual) 1 (0-7); Lymphocytes % (manual) 8 (10.0-50.0)
[2022-07-08 07:11] LABS: Urine Bacteria NONE SEEN /hpf (None Seen); Urine Blood Negative /uL (Negative); Urine Hyaline Cast FEW /lpf (0 - 2); Urine Mucus FEW (None Seen); Urine Specific Gravity 1.008 (1.001-1.035); Urine WBC 2 /hpf (0 - 5)
[2022-07-08] MEDS: FAMOTIDINE (10MG/ML) 2ML VL IV SCH ×2 (10:53→22:14)
[2022-07-08] MEDS: HEPARIN SODIUM (PORCINE) 5000 UNITS/ML 1ML VIAL SC SCH ×2 (10:54→22:15)
[2022-07-08] MEDS: ASPirin 81 mg TAB PO SCH (10:54)
[2022-07-08] MEDS ORDERED: NICOTINE 14 MG/24HR TOPICAL PATCH TD ONE (11:30)
[2022-07-08 11:50] VITALS: BP 116/72
[2022-07-08] MEDS ORDERED: FINE20TA PO (12:29)
[2022-07-08] MEDS ORDERED: UMEC1AER IN (12:30)
[2022-07-08] MEDS ORDERED: INFLUENZA QUAD 2022-2023 0.5 ML SYRG IM ONE (12:45)
[2022-07-08 16:00] VITALS: BP 117/75
[2022-07-08] MEDS ORDERED: cefTRIAXone 1GM/50ML D5W 50 ML IV SCH (21:00)
[2022-07-08 22:00] VITALS: BP 117/132
[2022-07-08] MEDS: DAKINS QUARTER STR 0.125% (NaHypochlorite) 473 ML TOPICAL SOL TOP SCH (22:17)
[2022-07-09 05:00] VITALS: BP 110/44
[2022-07-09] MEDS: InsuLIN REG 1unit/0.01ml Soln (100units/ml) SC SCH ×4 (06:33→21:54)
[2022-07-09] MEDS: ACCU-CHEK COMFORT CURVE STRIP VI SCH ×4 (06:34→21:56)
[2022-07-09 07:03] LABS: Hematocrit 40.1 % (36.0-46.0); Hemoglobin 13.3 g/dL (12.2-16.2); Mean Corpuscular Hemoglobin 28.1 pg (28.0-32.0); Mean Corpuscular Volume 85.1 fL (80.0-100.0); Red Blood Cells 4.72 10^6/uL (4.0-5.20); Red Cell Distribution Width 16.3 % (11.8-14.3); White Blood Cell 21.2 10^3/uL (4.4-10.8)
[2022-07-09 07:27] LABS: Calcium 8.1 mg/dL (8.5-10.1); Potassium 3.1 mmol/L (3.5-5.1)
[2022-07-09 07:30] LABS: Basophils % (manual) 0 (0.0-2.0); Blast Cells 0; Metamyelocytes % 0; Promyelocytes % 0; Reactive Lymphocytes 0
[2022-07-09 07:33] LABS: Albumin 2.7 g/dL (3.4-5.0); BUN/Creatinine Ratio 15.8; Bilirubin, Total 0.2 mg/dL (0.2-1.0); Magnesium 1.9 mg/dL (1.6-2.6); Total Protein 5.9 g/dL (6.4-8.2)
[2022-07-09 09:00] VITALS: BP 128/75
[2022-07-09] MEDS: ASPirin 81 mg TAB PO SCH (10:03)
[2022-07-09] MEDS: FAMOTIDINE (10MG/ML) 2ML VL IV SCH ×2 (10:03→21:34)
[2022-07-09] MEDS: NICOTINE 14 MG/24HR TOPICAL PATCH TD SCH (10:04)
[2022-07-09] MEDS: HEPARIN SODIUM (PORCINE) 5000 UNITS/ML 1ML VIAL SC SCH ×2 (10:06→21:51)
[2022-07-09] MEDS: DAKINS QUARTER STR 0.125% (NaHypochlorite) 473 ML TOPICAL SOL TOP SCH ×2 (10:13→21:56)
[2022-07-09] MEDS: SODIUM CHLORIDE 0.9% 1,000 ML IV SCH (10:13)
[2022-07-09 11:49] LABS: Band Neutrophils % (manual) 21; Eosinophils % (manual) 2 (0-7); Lymphocytes % (manual) 18 (10.0-50.0); Monocytes % (manual) 2 (0-12); Myelocytes % 1
[2022-07-09 13:00] VITALS: BP 122/68
[2022-07-09] MEDS: metroNIDAZOLE 500MG/100ML 100 ML IV SCH (15:28)
[2022-07-09] MEDS: VANCOMYCIN HCL 125MG/5ML ORAL SOL PO SCH ×2 (15:29→20:12)
[2022-07-09 17:00] VITALS: BP 149/79
[2022-07-09] MEDS ORDERED: POTASSIUM CHLORIDE 40 MEQ, LIDOCAINE 1% (LOCAL ANESTH.) 4 ML in SODIUM CHL 0.9% 250 ML IV ONE (19:30)
[2022-07-09] MEDS: HYDROcodone-ACET 5/325MG TAB PO PRN (20:09)
[2022-07-09 22:00] VITALS: BP 120/71
[2022-07-09] MEDS ORDERED: metroNIDAZOLE 500MG/100ML 100 ML IV SCH (22:00)
[2022-07-09] MEDS: MORPHINE SULFATE INJ 2 MG/ml SYRG IV PRN (23:33)
[2022-07-10] MEDS: metroNIDAZOLE 500MG/100ML 100 ML IV SCH ×4 (01:30→22:39)
[2022-07-10] MEDS: HYDROcodone-ACET 5/325MG TAB PO PRN (01:42)
[2022-07-10] MEDS: SODIUM CHLORIDE 0.9% 1,000 ML IV SCH ×2 (01:45→18:25)
[2022-07-10] MEDS: VANCOMYCIN HCL 125MG/5ML ORAL SOL PO SCH ×4 (03:30→21:53)
[2022-07-10 05:00] VITALS: BP 114/61
[2022-07-10] MEDS: InsuLIN REG 1unit/0.01ml Soln (100units/ml) SC SCH ×4 (06:23→22:42)
[2022-07-10] MEDS: ACCU-CHEK COMFORT CURVE STRIP VI SCH ×4 (06:23→22:00)
[2022-07-10 07:49] LABS: Hematocrit 40.6 % (36.0-46.0); Hemoglobin 13.6 g/dL (12.2-16.2); Mean Corpuscular Hemoglobin 28.6 pg (28.0-32.0); Mean Corpuscular Hgb Conc. 33.4 g/dL (32.0-36.0); Mean Corpuscular Volume 85.5 fL (80.0-100.0); Red Blood Cells 4.75 10^6/uL (4.0-5.20); Red Cell Distribution Width 16.7 % (11.8-14.3); White Blood Cell 13.1 10^3/uL (4.4-10.8)
[2022-07-10 08:05] LABS: Band Neutrophils % (manual) 0; Basophils % (manual) 0 (0.0-2.0); Blast Cells 0; Metamyelocytes % 0; Myelocytes % 0; Reactive Lymphocytes 0
[2022-07-10 08:42] LABS: Albumin 2.5 g/dL (3.4-5.0); BUN/Creatinine Ratio 21.5; Bilirubin, Total 0.4 mg/dL (0.2-1.0); Total Protein 5.4 g/dL (6.4-8.2)
[2022-07-10 08:54] LABS: Potassium 3.5 mmol/L (3.5-5.1)
[2022-07-10 09:00] VITALS: BP 133/83
[2022-07-10 09:13] LABS: Hepatitis B Surface Antibody Negative (Negative)
[2022-07-10] MEDS: ASPirin 81 mg TAB PO SCH (09:24)
[2022-07-10] MEDS: FAMOTIDINE (10MG/ML) 2ML VL IV SCH ×2 (09:24→21:53)
[2022-07-10] MEDS: NICOTINE 14 MG/24HR TOPICAL PATCH TD SCH (09:25)
[2022-07-10] MEDS: DAKINS QUARTER STR 0.125% (NaHypochlorite) 473 ML TOPICAL SOL TOP SCH ×2 (09:25→22:39)
[2022-07-10] MEDS: HEPARIN SODIUM (PORCINE) 5000 UNITS/ML 1ML VIAL SC SCH (09:28)
[2022-07-10 09:41] LABS: Hepatitis A Total Antibody Negative (Negative)
[2022-07-10] MEDS: MORPHINE SULFATE INJ 2 MG/ml SYRG IV PRN ×2 (11:00→22:41)
[2022-07-10 13:00] VITALS: BP 133/82
[2022-07-10 13:03] LABS: Eosinophils % (manual) 11 (0-7); Lymphocytes % (manual) 29 (10.0-50.0); Monocytes % (manual) 3 (0-12); Promyelocytes % 2
[2022-07-10 13:52] LABS: Hepatitis C Antibody Negative (Negative)
[2022-07-10 17:00] VITALS: BP 129/81
[2022-07-10 22:00] VITALS: BP 127/86
[2022-07-11] MEDS: VANCOMYCIN HCL 125MG/5ML ORAL SOL PO SCH ×4 (03:29→22:06)
[2022-07-11 05:00] VITALS: BP 131/68
[2022-07-11] MEDS: MORPHINE SULFATE INJ 2 MG/ml SYRG IV PRN ×2 (05:42→16:44)
[2022-07-11] MEDS: metroNIDAZOLE 500MG/100ML 100 ML IV SCH (06:40)
[2022-07-11] MEDS: InsuLIN REG 1unit/0.01ml Soln (100units/ml) SC SCH ×4 (06:41→21:36)
[2022-07-11] MEDS: ACCU-CHEK COMFORT CURVE STRIP VI SCH ×4 (06:41→21:37)
[2022-07-11 06:45] LABS: Hematocrit 42.1 % (36.0-46.0); Hemoglobin 13.9 g/dL (12.2-16.2); Mean Corpuscular Hemoglobin 28.2 pg (28.0-32.0); Mean Corpuscular Volume 85.5 fL (80.0-100.0); Red Blood Cells 4.92 10^6/uL (4.0-5.20); Red Cell Distribution Width 17.1 % (11.8-14.3); White Blood Cell 9.7 10^3/uL (4.4-10.8)
[2022-07-11 06:50] LABS: Calcium 8.3 mg/dL (8.5-10.1); Potassium 3.1 mmol/L (3.5-5.1)
[2022-07-11 06:53] LABS: Albumin 2.4 g/dL (3.4-5.0); BUN/Creatinine Ratio 20.3 (10.0-20.0)
[2022-07-11 06:56] LABS: Bilirubin, Total 0.4 mg/dL (0.2-1.0); INR 0.99 (0.9-1.15); Partial Thromboplastin Time 26.3 sec (24.6-33.4); Total Protein 5.3 g/dL (6.4-8.2)
[2022-07-11 07:11] LABS: Basophils % (manual) 0 (0.0-2.0); Blast Cells 0; Metamyelocytes % 0; Myelocytes % 0; Promyelocytes % 0; Reactive Lymphocytes 0
[2022-07-11 08:02] LABS: Band Neutrophils % (manual) 11; Eosinophils % (manual) 15 (0-7); Lymphocytes % (manual) 38 (10.0-50.0); Monocytes % (manual) 4 (0-12)
[2022-07-11 09:00] VITALS: BP 142/75
[2022-07-11] MEDS: DULoxetine HCL 30 MG CAP PO SCH (10:12)
[2022-07-11] MEDS: FLORASTOR (S. BOULARDII) 250 MG CAP PO SCH (10:12)
[2022-07-11] MEDS: FAMOTIDINE (10MG/ML) 2ML VL IV SCH (10:12)
[2022-07-11] MEDS: DAKINS QUARTER STR 0.125% (NaHypochlorite) 473 ML TOPICAL SOL TOP SCH ×2 (10:13→21:37)
[2022-07-11] MEDS: NICOTINE 14 MG/24HR TOPICAL PATCH TD SCH (10:13)
[2022-07-11 12:30] VITALS: BP 140/91
[2022-07-11] MEDS: SODIUM CHLORIDE 0.9% 1,000 ML IV SCH (12:38)
[2022-07-11] MEDS ORDERED: POTASSIUM CHL 20 Meq TABLET PO ONE (14:15)
[2022-07-11] MEDS ORDERED: dilTIAZem 120MG ER CAP PO ONE (14:15)
[2022-07-11 17:00] VITALS: BP 154/98
[2022-07-11] MEDS: metroNIDAZOLE 500 MG TAB PO SCH (21:39)
[2022-07-11 22:00] VITALS: BP 131/54
[2022-07-12] MEDS: VANCOMYCIN HCL 125MG/5ML ORAL SOL PO SCH ×4 (03:47→21:32)
[2022-07-12 05:00] VITALS: BP 115/64
[2022-07-12] MEDS: metroNIDAZOLE 500 MG TAB PO SCH ×3 (05:56→21:32)
[2022-07-12] MEDS: ACCU-CHEK COMFORT CURVE STRIP VI SCH ×4 (05:57→21:20)
[2022-07-12] MEDS: InsuLIN REG 1unit/0.01ml Soln (100units/ml) SC SCH ×4 (05:57→21:43)
[2022-07-12 06:37] LABS: Hematocrit 38.9 % (36.0-46.0); Hemoglobin 13.2 g/dL (12.2-16.2); Mean Corpuscular Hemoglobin 28.5 pg (28.0-32.0); Mean Corpuscular Hgb Conc. 33.8 g/dL (32.0-36.0); Mean Corpuscular Volume 84.4 fL (80.0-100.0); Red Blood Cells 4.61 10^6/uL (4.0-5.20); Red Cell Distribution Width 16.4 % (11.8-14.3); White Blood Cell 11.6 10^3/uL (4.4-10.8)
[2022-07-12 06:56] LABS: Blast Cells 0; Metamyelocytes % 0; Myelocytes % 0; Promyelocytes % 0
[2022-07-12 06:59] LABS: Albumin 2.5 g/dL (3.4-5.0); Calcium 8.3 mg/dL (8.5-10.1); Potassium 3.7 mmol/L (3.5-5.1)
[2022-07-12 07:03] LABS: Bilirubin, Total 0.6 mg/dL (0.2-1.0); Total Protein 4.8 g/dL (6.4-8.2)
[2022-07-12 08:00] LABS: Band Neutrophils % (manual) 5; Basophils % (manual) 1 (0.0-2.0); Eosinophils % (manual) 23 (0-7); Lymphocytes % (manual) 29 (10.0-50.0); Monocytes % (manual) 6 (0-12); Reactive Lymphocytes 1
[2022-07-12 09:00] VITALS: BP 142/83
[2022-07-12] MEDS: FAMOTIDINE 20 MG TAB PO SCH (09:39)
[2022-07-12] MEDS: DULoxetine HCL 30 MG CAP PO SCH (09:39)
[2022-07-12] MEDS: NICOTINE 14 MG/24HR TOPICAL PATCH TD SCH (09:40)
[2022-07-12] MEDS: DAKINS QUARTER STR 0.125% (NaHypochlorite) 473 ML TOPICAL SOL TOP SCH ×2 (09:41→21:32)
[2022-07-12] MEDS: FLORASTOR (S. BOULARDII) 250 MG CAP PO SCH (09:53)
[2022-07-12] MEDS ORDERED: dilTIAZem 120MG ER CAP PO SCH (10:00)
[2022-07-12 13:00] VITALS: BP 127/72
[2022-07-12 16:46] VITALS: BP 127/79
[2022-07-12] MEDS: HYDROcodone-ACET 5/325MG TAB PO PRN (21:20)
[2022-07-12 22:00] VITALS: BP 144/70
[2022-07-13] MEDS: VANCOMYCIN HCL 125MG/5ML ORAL SOL PO SCH ×3 (02:51→15:00)
[2022-07-13] MEDS: metroNIDAZOLE 500 MG TAB PO SCH ×2 (06:20→14:00)
[2022-07-13] MEDS: ACCU-CHEK COMFORT CURVE STRIP VI SCH ×2 (06:21→12:08)
[2022-07-13] MEDS: InsuLIN REG 1unit/0.01ml Soln (100units/ml) SC SCH ×3 (06:22→12:09)
[2022-07-13 06:34] LABS: Hematocrit 37.8 % (36.0-46.0); Hemoglobin 12.9 g/dL (12.2-16.2); Mean Corpuscular Hgb Conc. 34.2 g/dL (32.0-36.0); Red Blood Cells 4.45 10^6/uL (4.0-5.20); Red Cell Distribution Width 16.4 % (11.8-14.3); White Blood Cell 10.2 10^3/uL (4.4-10.8)
[2022-07-13 06:50] LABS: Potassium 3.1 mmol/L (3.5-5.1)
[2022-07-13 06:56] LABS: Albumin 2.5 g/dL (3.4-5.0); BUN/Creatinine Ratio 13.2 (10.0-20.0); Bilirubin, Total 0.4 mg/dL (0.2-1.0); Calcium 8.1 mg/dL (8.5-10.1); Total Protein 5.1 g/dL (6.4-8.2)
[2022-07-13 07:22] LABS: Basophils % (manual) 0 (0.0-2.0); Blast Cells 0; Myelocytes % 0; Promyelocytes % 0; Reactive Lymphocytes 0
[2022-07-13 08:00] VITALS: BP 120/64
[2022-07-13 08:15] LABS: Band Neutrophils % (manual) 2; Eosinophils % (manual) 16 (0-7); Lymphocytes % (manual) 23 (10.0-50.0); Metamyelocytes % 1; Monocytes % (manual) 4 (0-12)
[2022-07-13 08:37] VITALS: BP 120/64
[2022-07-13] MEDS ORDERED: dilTIAZem HCL 180MG ER CAP PO SCH (10:00)
[2022-07-13] MEDS: FLORASTOR (S. BOULARDII) 250 MG CAP PO SCH (10:54)
[2022-07-13] MEDS: DULoxetine HCL 30 MG CAP PO SCH (10:54)
[2022-07-13] MEDS: NICOTINE 14 MG/24HR TOPICAL PATCH TD SCH (10:55)
[2022-07-13] MEDS: DAKINS QUARTER STR 0.125% (NaHypochlorite) 473 ML TOPICAL SOL TOP SCH (10:55)
[2022-07-13] MEDS: FAMOTIDINE 20 MG TAB PO SCH (10:55)
[2022-07-13] MEDS ORDERED: METR500T PO (11:36)
[2022-07-13] MEDS ORDERED: VANC250PO PO (11:36)
[2022-07-13] MEDS ORDERED: POTASSIUM CHL 20 Meq TABLET PO ONE (11:45)
[2022-07-13 12:45] VITALS: BP 139/75
[2022-07-13 13:43] VITALS: BP 120/64
== END 2022-07-13 15:40 | disposition home or self-care (01) | DRG 871 ==
LOC: ER 17:08 → TELE 23:45 → TELE-WESTW 07-08 11:56 → WEST WING 07-11 21:19
PROVIDERS: ADMIT Nurse Practitioner Family; ATTEND Internal Medicine
DX: A41.9 Sepsis, unspecified organism (principal); J96.01 Acute respiratory failure with hypoxia; N17.0 Acute kidney failure with tubular necrosis; I13.0 Hypertensive heart and chronic kidney disease with heart failure and stage 1 through stage 4 chronic kidney disease, or unspecified chronic kidney disease; A04.72 Enterocolitis due to Clostridium difficile, not specified as recurrent; I50.32 Chronic diastolic (congestive) heart failure; Z68.41 Body mass index [BMI] 40.0-44.9, adult; E87.6 Hypokalemia; E11.22 Type 2 diabetes mellitus with diabetic chronic kidney disease; E11.42 Type 2 diabetes mellitus with diabetic polyneuropathy; E11.621 Type 2 diabetes mellitus with foot ulcer; E66.01 Morbid (severe) obesity due to excess calories; R74.8 Abnormal levels of other serum enzymes; E78.5 Hyperlipidemia, unspecified; E83.42 Hypomagnesemia; N18.2 Chronic kidney disease, stage 2 (mild); E86.0 Dehydration; L97.529 Non-pressure chronic ulcer of other part of left foot with unspecified severity; I25.10 Atherosclerotic heart disease of native coronary artery without angina pectoris; K21.9 Gastro-esophageal reflux disease without esophagitis; I95.9 Hypotension, unspecified; E88.09 Other disorders of plasma-protein metabolism, not elsewhere classified; R79.89 Other specified abnormal findings of blood chemistry; J44.9 Chronic obstructive pulmonary disease, unspecified; L97.519 Non-pressure chronic ulcer of other part of right foot with unspecified severity; Z82.3 Family history of stroke; Z83.3 Family history of diabetes mellitus; Z95.1 Presence of aortocoronary bypass graft; Z95.5 Presence of coronary angioplasty implant and graft; Z90.49 Acquired absence of other specified parts of digestive tract; Z79.82 Long term (current) use of aspirin; Z72.0 Tobacco use; Z71.6 Tobacco abuse counseling
CPT/HCPCS: 36415; 71045; 74176; 80053; 81001; 82270; 82962; 83605; 83735; 83880; 84484; 85007; 85027; 85610; 85730; 86704; 86706; 86708; 86803; 87040; 87045; 87086; 87340; 87426; 87427; 87493; 96365; 96366; 96368; 96372; 96375; 96376; G0378; J0696; J1815; J2001; J3490; P9047

== ENCOUNTER → 2022-10-30 | Outpatient (CLI) | payer OTHER, MEDICAID ==
[~2022-10-30] MED LIST changes: +ALBUAER3 IN; -AMOX-277 PO; -ASPI81CH74 PO; -CLIN300C8 PO; -DILT-23 PO; +DIPH1CRE TOP; -DOXY-346 PO; -DULO60CA PO; +DULO60CA41 PO; +FINE20TA PO; -FLUC150T38 PO; -HYDR-4798 PO; -LACTCAP35 OR; +LIDO5CRE14 EX; -LINE1TAB6 PO; +METR500T PO; +NALO4SPR2; -POTA-167 PO; +POTA-211 PO; +POTA-220 PO; -PRAS10TA18 PO; +PRAS10TA19 PO; -SACC1CAP3 PO; +SILV1CRE82 EX; +TIRZ10IN SC; -TRAM50TA2 PO; +UMEC1AER IN; +VANC250PO PO; +[UNRECOGNIZED DRUG - CODE] PO
[2022-10-30 12:49] LABS: Basophils # (auto) 0.1 10 ^3/uL (0-0.2); Basophils % (auto) 1.1 % (0.0-2.0); Eosinophils # (auto) 0.1 10 ^3/uL (0-0.8); Eosinophils % (auto) 1.3 % (0.0-7.0); Hematocrit 41.3 % (36.0-46.0); Hemoglobin 13.7 g/dL (12.2-16.2); Lymphocytes # (auto) 2.8 10 ^3/uL (0.4-5.4); Lymphocytes % (auto) 29.2 % (10.0-50.0); Mean Corpuscular Hemoglobin 29.5 pg (28.0-32.0); Mean Corpuscular Hgb Conc. 33.3 g/dL (32.0-36.0); Mean Corpuscular Volume 88.6 fL (80.0-100.0); Monocytes # (auto) 0.4 10 ^3/uL (0-1.3); Monocytes % (auto) 4.1 % (0.0-12.0); Neutrophils # (auto) 6.2 10 ^3/uL (1.6-8.6); Neutrophils % (auto) 64.3 % (37.0-80.0); Nucleated Red Blood Cells % 0.2 %; Red Blood Cells 4.66 10^6/uL (4.0-5.20); White Blood Cell 9.6 10^3/uL (4.4-10.8)
[2022-10-30 13:50] LABS: Albumin 3.1 g/dL (3.4-5.0); BUN/Creatinine Ratio 10.9 (10.0-20.0); Bilirubin, Total 0.5 mg/dL (0.2-1.0); Calcium 8.9 mg/dL (8.5-10.1); Total Protein 6.8 g/dL (6.4-8.2)
[2022-10-30 13:56] LABS: Urine Specific Gravity 1.023 (1.001-1.035)
[2022-10-30 13:57] LABS: Urine Blood NEGATIVE /uL (Negative); Urine WBC 1 /hpf (0 - 5)
[2022-10-30 13:58] LABS: Urine Bacteria FEW /hpf (None Seen)
== END | disposition home or self-care (01) ==
LOC: LAB 12:17
PROVIDERS: ATTEND Internal Medicine Endocrinology, Diabetes & Metabolism
DX: E11.9 Type 2 diabetes mellitus without complications (principal)
CPT/HCPCS: 36415; 80053; 81001; 83036; 84443; 85025

== ENCOUNTER 2022-11-01 06:19 | Day surgery (SDC) | payer OTHER, MEDICAID ==
[2022-10-30 13:04] LABS: Urine Bacteria FEW /hpf (None Seen); Urine Blood Negative /uL (Negative); Urine Mucus FEW (None Seen); Urine Specific Gravity 1.023 (1.001-1.035); Urine WBC 1 /hpf (0 - 5)
[2022-10-30 13:08] LABS: INR 0.93 (0.9-1.15); Partial Thromboplastin Time 29.1 SEC (24.5-34.5)
[2022-10-30 15:17] LABS: Albumin 3.3 g/dL (3.4-5.0); Calcium 8.8 mg/dL (8.5-10.1)
[2022-10-30 15:21] LABS: BUN/Creatinine Ratio 11.1 (10.0-20.0); Bilirubin, Total 0.5 mg/dL (0.2-1.0)
[2022-10-30 16:55] LABS: Basophils # (auto) 0 10 ^3/uL (0-0.2); Basophils % (auto) 0.4 % (0.0-2.0); Eosinophils # (auto) 0.1 10 ^3/uL (0-0.8); Eosinophils % (auto) 1.5 % (0.0-7.0); Hematocrit 41.2 % (36.0-46.0); Hemoglobin 13.7 g/dL (12.2-16.2); Lymphocytes % (auto) 30.1 % (10.0-50.0); Mean Corpuscular Hemoglobin 29.8 pg (28.0-32.0); Mean Corpuscular Hgb Conc. 33.3 g/dL (32.0-36.0); Mean Corpuscular Volume 89.5 fL (80.0-100.0); Monocytes # (auto) 0.4 10 ^3/uL (0-1.3); Monocytes % (auto) 4.2 % (0.0-12.0); Neutrophils # (auto) 6.3 10 ^3/uL (1.6-8.6); Neutrophils % (auto) 63.8 % (37.0-80.0); Nucleated Red Blood Cells % 0.1 %; Red Cell Distribution Width 14.9 % (11.8-14.3); White Blood Cell 9.8 10^3/uL (4.4-10.8)
[~2022-11-01] VITALS: Ht 172.7 cm; Wt 126.6 kg
[~2022-11-01 06:19] MED LIST changes: -METR500T PO; -PANTOPRAZOLE PO; -POTA-211 PO; -VANC250PO PO
[2022-11-01] MEDS ORDERED: KETAMINE 50mg/ML 10ml Vial (500mg/10ml) IV ONE (06:20)
[2022-11-01] MEDS ORDERED: ceFAZolin 1GM/50ML 100 ML IV ONE (06:48)
[2022-11-01] MEDS ORDERED: BUPIVACAINE 0.25% INJ 50ML VIAL ONE (06:57)
[2022-11-01] MEDS ORDERED: LIDOCAINE W/ EPINEPHRINE 1% 20ML VIAL ONE (06:57)
[2022-11-01] MEDS ORDERED: GLYCOPYRROLATE 0.2 MG/ML 1ML VIAL ONE (07:07)
[2022-11-01] MEDS ORDERED: ONDANSETRON HCL 4 MG/2 ML VIAL ONE (07:07)
[2022-11-01] MEDS ORDERED: LIDOCAINE 2% (LOCAL ANESTH.) PF 5ml SDV ONE (07:07)
[2022-11-01] MEDS ORDERED: KETOROLAC TROMETH 30 MG/ML 1ML VIAL ONE (07:07)
[2022-11-01] MEDS ORDERED: DexAMETHasone SOD PHOS 10MG/1ML VIAL INJ ONE (07:07)
[2022-11-01] MEDS ORDERED: PROPOFOL 10 MG/ML 20 ML IV ONE ×2 (07:07→07:35)
[2022-11-01] MEDS ORDERED: ceFAZolin 1GM VL ONE (07:07)
[2022-11-01 08:06] VITALS: TEMP 97.8
[2022-11-01 08:30] VITALS: BP 126/69; PULSE 89; RESP 17; O2SAT 97
== END 2022-11-01 08:46 | disposition home or self-care (01) ==
LOC: SUR 06:19
PROVIDERS: ATTEND Surgery
DX: D17.21 Benign lipomatous neoplasm of skin and subcutaneous tissue of right arm (principal); D17.1 Benign lipomatous neoplasm of skin and subcutaneous tissue of trunk; E11.9 Type 2 diabetes mellitus without complications
CPT/HCPCS: 23071; 24071; 36415; 80053; 81001; 82962; 85025; 85610; 85730; 86850; 86900; 86901; 88305; J0690; J1100; J1885; J2001; J2405; J2704; J3490

== ENCOUNTER 2023-03-08 15:10 | Inpatient (IN) | payer MEDICAID, OTHER ==
[~2023-03-08] VITALS: Ht 172.7 cm; Wt 130.1 kg
[2023-03-08 16:17] LABS: Basophils # (auto) 0.1 10 ^3/uL (0-0.2); Basophils % (auto) 0.7 % (0.0-2.0); Eosinophils # (auto) 0.2 10 ^3/uL (0-0.8); Eosinophils % (auto) 1.4 % (0.0-7.0); Hematocrit 40.5 % (36.0-46.0); Hemoglobin 13.3 g/dL (12.2-16.2); Lymphocytes # (auto) 2.3 10 ^3/uL (0.4-5.4); Mean Corpuscular Hgb Conc. 32.9 g/dL (32.0-36.0); Mean Corpuscular Volume 85.1 fL (80.0-100.0); Monocytes # (auto) 0.6 10 ^3/uL (0-1.3); Monocytes % (auto) 4.3 % (0.0-12.0); Neutrophils # (auto) 10.4 10 ^3/uL (1.6-8.6); Neutrophils % (auto) 76.6 % (37.0-80.0); Red Blood Cells 4.75 10^6/uL (4.0-5.20); Red Cell Distribution Width 15.8 % (11.8-14.3); White Blood Cell 13.6 10^3/uL (4.4-10.8)
[2023-03-08 16:38] LABS: Alanine Aminotransferase 13 U/L (7-40); Albumin 4.3 g/dL (3.2-4.8); Alkaline Phosphatase 144 U/L (46-116); Anion Gap 8 (5-15); Aspartate Aminotransferase 11 U/L (13-40); Bilirubin, Total 0.7 mg/dL (0.2-1.0); Blood Urea Nitrogen 5 mg/dL (9-23); Calcium 9.1 mg/dL (8.5-10.1); Carbon Dioxide 27 mmol/L (20-30); Chloride 103 mmol/L (98-107); Glucose 177 mg/dL (74-106); Potassium 3.6 mmol/L (3.5-5.1); Sodium 138 mmol/L (136-145); Total Protein 6.7 g/dL (5.7-8.2)
[2023-03-08 16:51] LABS: Lactic Acid w/Reflex 3.3 mmol/L (0.4-2.0)
[2023-03-08] MEDS ORDERED: IOHEXOL 300 MG/ML 100ML BOTTLE IJ ONE (17:03)
[2023-03-08 17:04] LABS: Erythrocyte Sedimentation Rate 22 mm/hr (0-20)
[2023-03-08] MEDS ORDERED: VANCOMYCIN HCL 1000 MG VL IR ONE (18:00)
[2023-03-08] MEDS ORDERED: ONDANSETRON HCL 4 MG/2 ML VIAL IV PRN (23:00)
[2023-03-08] MEDS ORDERED: DEXTROSE (50%) 50ML SYRG IV PRN (23:00)
[2023-03-08] MEDS ORDERED: hydrALAZINE HCL 20 MG/ML VL IV PRN (23:00)
[2023-03-08] MEDS ORDERED: VANCOMYCIN PER PHARMACY 0 MG IV SCH ×2 (23:00→23:30)
[2023-03-08] MEDS ORDERED: DOCUSATE SOD 100 MG CAP PO PRN (23:00)
[2023-03-08] MEDS ORDERED: ACETAMINOPHEN 325 MG TAB PO PRN (23:00)
[2023-03-08] MEDS ORDERED: VANCOMYCIN 1GM/250ML 250 ML IV NR (23:30)
[2023-03-09] VITALS (7 sets, daily range): BP systolic 106–148; BP diastolic 43–88; PULSE 49–98; RESP 12–21; TEMP 97.3–98.9; O2SAT 90–96
[2023-03-09] MEDS: HYDROcodone-ACET 5/325MG TAB PO PRN (03:42)
[2023-03-09 05:54] LABS: Basophils # (auto) 0.1 10 ^3/uL (0-0.2); Basophils % (auto) 0.8 % (0.0-2.0); Eosinophils # (auto) 0.3 10 ^3/uL (0-0.8); Hematocrit 39.8 % (36.0-46.0); Hemoglobin 12.9 g/dL (12.2-16.2); Lymphocytes # (auto) 3.1 10 ^3/uL (0.4-5.4); Lymphocytes % (auto) 23.9 % (10.0-50.0); Mean Corpuscular Hemoglobin 27.7 pg (28.0-32.0); Mean Corpuscular Hgb Conc. 32.5 g/dL (32.0-36.0); Mean Corpuscular Volume 85.2 fL (80.0-100.0); Monocytes # (auto) 0.6 10 ^3/uL (0-1.3); Neutrophils # (auto) 8.9 10 ^3/uL (1.6-8.6); Neutrophils % (auto) 68.3 % (37.0-80.0); Nucleated Red Blood Cells % 0.1 %; Red Blood Cells 4.67 10^6/uL (4.0-5.20); Red Cell Distribution Width 15.8 % (11.8-14.3)
[2023-03-09 05:58] LABS: Alanine Aminotransferase 18 U/L (7-40); Albumin 4.4 g/dL (3.2-4.8); Alkaline Phosphatase 146 U/L (46-116); Anion Gap 9 (5-15); Aspartate Aminotransferase 11 U/L (13-40); BUN/Creatinine Ratio 11.8 (10.0-20.0); Blood Urea Nitrogen 9 mg/dL (9-23); Calcium 9.1 mg/dL (8.5-10.1); Carbon Dioxide 26 mmol/L (20-30); Chloride 102 mmol/L (98-107); Glucose 154 mg/dL (74-106); Potassium 3.2 mmol/L (3.5-5.1); Sodium 137 mmol/L (136-145); Total Protein 6.8 g/dL (5.7-8.2)
[2023-03-09] MEDS: InsuLIN REG 1unit/0.01ml Soln (100units/ml) SC SCH ×4 (07:51→21:46)
[2023-03-09] MEDS ORDERED: VANCOMYCIN 1GM/250ML 250 ML IV ONE (08:45)
[2023-03-09] MEDS: cefTRIAXone 1GM/50ML D5W 50 ML IV SCH (09:32)
[2023-03-09] MEDS ORDERED: TIRZ5INJ SC (09:44)
[2023-03-09] MEDS: ASPirin 81 mg TAB PO SCH (10:09)
[2023-03-09] MEDS: ACCU-CHEK COMFORT CURVE STRIP VI SCH ×4 (12:01→21:32)
[2023-03-09] MEDS: SODIUM CHLOR 0.9% PF (SALINE LOCK) 10ML VIAL/SYR IV SCH ×3 (14:00→21:32)
[2023-03-09] MEDS: MORPHINE SULFATE INJ 2 MG/ml SYRG IV PRN ×2 (16:13→22:34)
[2023-03-09] MEDS ORDERED: POTASSIUM CHL 20 Meq TABLET PO ONE (17:15)
[2023-03-09] MEDS: VANCOMYCIN 1GM/250ML 250 ML IV SCH (17:44)
[2023-03-09] MEDS: ATORVASTATIN 20 MG TAB PO SCH (21:32)
[2023-03-10] MEDS: VANCOMYCIN 1GM/250ML 250 ML IV SCH ×3 (01:39→18:03)
[2023-03-10 05:00] VITALS: BP 120/66; PULSE 90; RESP 21; TEMP 97.9; O2SAT 91
[2023-03-10] MEDS: SODIUM CHLOR 0.9% PF (SALINE LOCK) 10ML VIAL/SYR IV SCH ×3 (06:48→22:13)
[2023-03-10] MEDS: InsuLIN REG 1unit/0.01ml Soln (100units/ml) SC SCH ×4 (06:50→22:12)
[2023-03-10] MEDS: ACCU-CHEK COMFORT CURVE STRIP VI SCH ×4 (06:50→22:13)
[2023-03-10] MEDS: ASPirin 81 mg TAB PO SCH (08:55)
[2023-03-10] MEDS: HYDROcodone-ACET 5/325MG TAB PO PRN (08:56)
[2023-03-10] MEDS: cefTRIAXone 1GM/50ML D5W 50 ML IV SCH (09:18)
[2023-03-10] MEDS: MORPHINE SULFATE INJ 2 MG/ml SYRG IV PRN ×3 (09:53→19:39)
[2023-03-10 09:58] VITALS: BP 133/85; PULSE 83; RESP 18; TEMP 98.1; O2SAT 95
[2023-03-10] MEDS ORDERED: ALBUTEROL SULF HFA 90MCG INH 200DOSE IN SCH (12:45)
[2023-03-10 13:11] VITALS: BP 134/74; PULSE 81; RESP 18; TEMP 98; O2SAT 95
[2023-03-10] MEDS ORDERED: DAKINS HALF STR 0.25% (NaHypochlorite) 473 ML TOPICAL SOL TOP ONE (16:15)
[2023-03-10 16:21] VITALS: BP 132/73; PULSE 77; RESP 18; TEMP 97.9; O2SAT 94
[2023-03-10] MEDS: PREGABALIN CAPSULE 75 MG CAP PO PRN (18:03)
[2023-03-10] MEDS: PREGABALIN 25 MG CAP PO PRN (18:03)
[2023-03-10] MEDS: FUROSEMIDE 40 MG TAB PO SCH (18:04)
[2023-03-10 19:47] VITALS: PULSE 78
[2023-03-10 22:00] VITALS: BP 148/77; PULSE 85; RESP 17; TEMP 98.5; O2SAT 94
[2023-03-10] MEDS: ATORVASTATIN 20 MG TAB PO SCH (22:08)
[2023-03-10] MEDS: RANOLAZINE ER 500 MG TAB PO SCH (22:08)
[2023-03-10] MEDS: diphenhdrAMINE-ZINC ACETATE 1 APPLIC APPL TOP SCH (22:12)
[2023-03-10] MEDS: DAKINS HALF STR 0.25% (NaHypochlorite) 473 ML TOPICAL SOL TOP SCH (22:13)
[2023-03-10] MEDS: POTASSIUM CHL 20 Meq TABLET PO SCH (22:13)
[2023-03-11] VITALS (7 sets, daily range): BP systolic 109–148; BP diastolic 60–88; PULSE 65–101; RESP 16–20; TEMP 97.4–98.5; O2SAT 91–95
[2023-03-11] MEDS ORDERED: ALBUTEROL MEDNEB 2.5 mg/3ml NEB NEB PRN (01:00)
[2023-03-11] MEDS: MORPHINE SULFATE INJ 2 MG/ml SYRG IV PRN ×3 (01:50→21:30)
[2023-03-11] MEDS: VANCOMYCIN 1GM/250ML 250 ML IV SCH ×3 (01:51→17:34)
[2023-03-11] MEDS: FUROSEMIDE 40 MG TAB PO SCH ×2 (06:46→17:35)
[2023-03-11] MEDS: SODIUM CHLOR 0.9% PF (SALINE LOCK) 10ML VIAL/SYR IV SCH ×3 (06:46→21:30)
[2023-03-11] MEDS: ACCU-CHEK COMFORT CURVE STRIP VI SCH ×4 (06:49→21:36)
[2023-03-11] MEDS: InsuLIN REG 1unit/0.01ml Soln (100units/ml) SC SCH ×4 (06:50→21:46)
[2023-03-11] MEDS: PREGABALIN 25 MG CAP PO PRN (09:20)
[2023-03-11] MEDS: POTASSIUM CHL 20 Meq TABLET PO SCH ×2 (09:20→21:27)
[2023-03-11] MEDS: diphenhdrAMINE-ZINC ACETATE 1 APPLIC APPL TOP SCH ×2 (09:20→21:36)
[2023-03-11] MEDS: PREGABALIN CAPSULE 75 MG CAP PO PRN (09:20)
[2023-03-11] MEDS: ASPirin 81 mg TAB PO SCH (09:20)
[2023-03-11] MEDS: cefTRIAXone 1GM/50ML D5W 50 ML IV SCH (09:20)
[2023-03-11] MEDS: RANOLAZINE ER 500 MG TAB PO SCH ×2 (09:21→21:26)
[2023-03-11] MEDS: DAKINS HALF STR 0.25% (NaHypochlorite) 473 ML TOPICAL SOL TOP SCH (09:21)
[2023-03-11] MEDS: PRASUGREL HCL 10 MG TAB PO SCH (09:21)
[2023-03-11] MEDS: HYDROcodone-ACET 5/325MG TAB PO PRN (17:43)
[2023-03-11] MEDS: ATORVASTATIN 20 MG TAB PO SCH (21:26)
[2023-03-12] MEDS: VANCOMYCIN 1GM/250ML 250 ML IV SCH ×3 (02:25→17:47)
[2023-03-12] MEDS: MORPHINE SULFATE INJ 2 MG/ml SYRG IV PRN ×3 (02:52→17:04)
[2023-03-12 04:55] LABS: Basophils # (auto) 0.1 10 ^3/uL (0-0.2); Basophils % (auto) 1.2 % (0.0-2.0); Eosinophils # (auto) 0.4 10 ^3/uL (0-0.8); Eosinophils % (auto) 4.7 % (0.0-7.0); Hematocrit 40.4 % (36.0-46.0); Hemoglobin 13.1 g/dL (12.2-16.2); Lymphocytes # (auto) 2.8 10 ^3/uL (0.4-5.4); Lymphocytes % (auto) 31.7 % (10.0-50.0); Mean Corpuscular Hemoglobin 27.5 pg (28.0-32.0); Mean Corpuscular Hgb Conc. 32.5 g/dL (32.0-36.0); Mean Corpuscular Volume 84.6 fL (80.0-100.0); Monocytes # (auto) 0.5 10 ^3/uL (0-1.3); Monocytes % (auto) 5.5 % (0.0-12.0); Neutrophils % (auto) 56.9 % (37.0-80.0); Red Blood Cells 4.78 10^6/uL (4.0-5.20); Red Cell Distribution Width 15.5 % (11.8-14.3); White Blood Cell 8.8 10^3/uL (4.4-10.8)
[2023-03-12 05:00] VITALS: BP 113/55; PULSE 72; RESP 16; TEMP 97.8; O2SAT 95
[2023-03-12 05:12] LABS: Alanine Aminotransferase 28 U/L (7-40); Albumin 4.1 g/dL (3.2-4.8); Alkaline Phosphatase 167 U/L (46-116); Anion Gap 7 (5-15); Aspartate Aminotransferase 26 U/L (13-40); BUN/Creatinine Ratio 11.9 (10.0-20.0); Blood Urea Nitrogen 12 mg/dL (9-23); Calcium 8.8 mg/dL (8.7-10.4); Carbon Dioxide 30 mmol/L (20-30); Chloride 101 mmol/L (98-107); Glucose 205 mg/dL (74-106); Magnesium 1.8 mg/dL (1.6-2.6); Potassium 3.8 mmol/L (3.5-5.1); Sodium 138 mmol/L (136-145)
[2023-03-12 05:13] LABS: Bilirubin, Total 0.7 mg/dL (0.2-1.0); Total Protein 6.5 g/dL (5.7-8.2)
[2023-03-12] MEDS: FUROSEMIDE 40 MG TAB PO SCH ×2 (06:25→17:03)
[2023-03-12] MEDS: SODIUM CHLOR 0.9% PF (SALINE LOCK) 10ML VIAL/SYR IV SCH ×3 (06:28→22:00)
[2023-03-12] MEDS: ACCU-CHEK COMFORT CURVE STRIP VI SCH ×4 (06:30→22:13)
[2023-03-12] MEDS: InsuLIN REG 1unit/0.01ml Soln (100units/ml) SC SCH ×4 (06:31→22:14)
[2023-03-12 08:49] VITALS: BP 123/68; PULSE 72; RESP 16; TEMP 97.7; O2SAT 95
[2023-03-12] MEDS: cefTRIAXone 1GM/50ML D5W 50 ML IV SCH (09:13)
[2023-03-12] MEDS: ASPirin 81 mg TAB PO SCH (09:14)
[2023-03-12] MEDS: POTASSIUM CHL 20 Meq TABLET PO SCH ×2 (09:14→22:12)
[2023-03-12] MEDS: RANOLAZINE ER 500 MG TAB PO SCH ×2 (09:14→22:12)
[2023-03-12] MEDS: PREGABALIN 25 MG CAP PO PRN ×2 (09:14→22:30)
[2023-03-12] MEDS: PREGABALIN CAPSULE 75 MG CAP PO PRN ×2 (09:14→22:30)
[2023-03-12] MEDS: diphenhdrAMINE-ZINC ACETATE 1 APPLIC APPL TOP SCH ×2 (09:15→22:16)
[2023-03-12] MEDS: PRASUGREL HCL 10 MG TAB PO SCH (09:15)
[2023-03-12 13:00] VITALS: BP 109/67; PULSE 76; RESP 16; TEMP 97.8; O2SAT 95
[2023-03-12] MEDS ORDERED: DAKINS HALF STR 0.25% (NaHypochlorite) 473 ML TOPICAL SOL TOP ONE (15:45)
[2023-03-12 17:00] VITALS: BP 106/61; PULSE 88; RESP 16; TEMP 98.3; O2SAT 95
[2023-03-12 18:43] LABS: INR 0.98 (0.9-1.15); Partial Thromboplastin Time 24.5 SEC (24.5-34.5); Prothrombin Time 10.3 sec (9.3-11.8)
[2023-03-12 20:00] VITALS: BP 115/87; PULSE 85; RESP 18; TEMP 98.1
[2023-03-12 22:00] VITALS: BP 154/80; PULSE 95; RESP 18; TEMP 97.6; O2SAT 96
[2023-03-12] MEDS: ATORVASTATIN 20 MG TAB PO SCH (22:12)
[2023-03-12] MEDS: HYDROcodone-ACET 5/325MG TAB PO PRN (22:31)
[2023-03-13] MEDS: VANCOMYCIN 1GM/250ML 250 ML IV SCH ×2 (02:05→09:44)
[2023-03-13] MEDS: DAKINS HALF STR 0.25% (NaHypochlorite) 473 ML TOPICAL SOL TOP SCH ×2 (02:05→10:00)
[2023-03-13] MEDS: MORPHINE SULFATE INJ 2 MG/ml SYRG IV PRN (02:24)
[2023-03-13] MEDS: FUROSEMIDE 40 MG TAB PO SCH (04:58)
[2023-03-13 05:00] VITALS: BP 127/74; PULSE 80; RESP 16; TEMP 97.5; O2SAT 93
[2023-03-13] MEDS: SODIUM CHLOR 0.9% PF (SALINE LOCK) 10ML VIAL/SYR IV SCH ×2 (06:00→14:00)
[2023-03-13] MEDS: ACCU-CHEK COMFORT CURVE STRIP VI SCH ×3 (06:58→17:00)
[2023-03-13] MEDS: InsuLIN REG 1unit/0.01ml Soln (100units/ml) SC SCH ×3 (07:00→17:00)
[2023-03-13 08:00] VITALS: BP 116/53; PULSE 69; RESP 18; TEMP 97.7
[2023-03-13] MEDS ORDERED: LIDOCAINE 1% (LOCAL ANESTH.) PF 5ml SDV ID ONE (08:45)
[2023-03-13 09:00] VITALS: BP 116/53; PULSE 69; RESP 18; TEMP 97.7; O2SAT 94
[2023-03-13] MEDS: POTASSIUM CHL 20 Meq TABLET PO SCH (09:44)
[2023-03-13] MEDS: ASPirin 81 mg TAB PO SCH (09:44)
[2023-03-13] MEDS: RANOLAZINE ER 500 MG TAB PO SCH (09:44)
[2023-03-13] MEDS ORDERED: SODIUM CHLOR 0.9% PF (SALINE LOCK) 10ML VIAL/SYR IV SCH (10:00)
[2023-03-13] MEDS: diphenhdrAMINE-ZINC ACETATE 1 APPLIC APPL TOP SCH (10:00)
[2023-03-13] MEDS: PRASUGREL HCL 10 MG TAB PO SCH (12:35)
[2023-03-13 13:00] VITALS: BP 138/89; PULSE 89; RESP 20; TEMP 98; O2SAT 94
[2023-03-13 16:36] VITALS: BP 152/94; PULSE 92; RESP 18; TEMP 98.2; O2SAT 94
== END 2023-03-13 17:41 | disposition home health service (06) | DRG 710 ==
LOC: ER 15:10 → TELE 23:36 → WEST WING 03-09 08:28
PROVIDERS: ADMIT Nurse Practitioner Family; ATTEND Nurse Practitioner Acute Care
PROC: 02HV33Z Insertion of Infusion Device into Superior Vena Cava, Percutaneous Approach (ICD-10-PCS; 2023-03-08)
PROC: B548ZZA Ultrasonography of Superior Vena Cava, Guidance (ICD-10-PCS; 2023-03-08)
PROC: 0SBN0ZZ Excision of Left Metatarsal-Phalangeal Joint, Open Approach (ICD-10-PCS; principal; 2023-03-09)
DX: A41.9 Sepsis, unspecified organism (principal); E11.42 Type 2 diabetes mellitus with diabetic polyneuropathy; L03.116 Cellulitis of left lower limb; E11.621 Type 2 diabetes mellitus with foot ulcer; L97.529 Non-pressure chronic ulcer of other part of left foot with unspecified severity; L02.612 Cutaneous abscess of left foot; M86.8X7 Other osteomyelitis, ankle and foot; I50.9 Heart failure, unspecified; I11.0 Hypertensive heart disease with heart failure; E11.65 Type 2 diabetes mellitus with hyperglycemia; E78.5 Hyperlipidemia, unspecified; E11.69 Type 2 diabetes mellitus with other specified complication; E66.01 Morbid (severe) obesity due to excess calories; L97.919 Non-pressure chronic ulcer of unspecified part of right lower leg with unspecified severity; K21.9 Gastro-esophageal reflux disease without esophagitis; F17.210 Nicotine dependence, cigarettes, uncomplicated; I25.10 Atherosclerotic heart disease of native coronary artery without angina pectoris; Z82.3 Family history of stroke; Z95.1 Presence of aortocoronary bypass graft; Z82.49 Family history of ischemic heart disease and other diseases of the circulatory system; Z90.710 Acquired absence of both cervix and uterus; Z83.3 Family history of diabetes mellitus; Z90.49 Acquired absence of other specified parts of digestive tract; E66.9 Obesity, unspecified
CPT/HCPCS: 36415; 36569; 73701; 73718; 80053; 80202; 82565; 82962; 83036; 83605; 83735; 83880; 84484; 85025; 85610; 85652; 85730; 86141; 86431; 87040; 87077; 87186; 87205; G0378; J0696; J1815

== ENCOUNTER 2023-04-03 19:51 | Inpatient (IN) | payer OTHER, MEDICAID ==
[~2023-04-03] VITALS: Ht 172.7 cm; Wt 127.5 kg
[~2023-04-03 19:51] MED LIST changes: -DULO60CA41 PO; -GLIP5TAB12 PO; +TIRZ5INJ SC
[2023-04-04] VITALS (7 sets, daily range): BP systolic 103–149; BP diastolic 50–85; PULSE 85–106; RESP 16–20; TEMP 97.8–98.2; O2SAT 92–100
[2023-04-04] MEDS ORDERED: PIPERACILLIN-TAZOB 3.375GM 100 ML IV ONE (00:30)
[2023-04-04] MEDS ORDERED: VANCOMYCIN 1GM/250ML 250 ML IV ONE (00:30)
[2023-04-04 01:16] LABS: Basophils # (auto) 0.1 10 ^3/uL (0-0.2); Basophils % (auto) 0.7 % (0.0-2.0); Eosinophils # (auto) 0.5 10 ^3/uL (0-0.8); Eosinophils % (auto) 4.8 % (0.0-7.0); Hematocrit 42.5 % (36.0-46.0); Hemoglobin 13.9 g/dL (12.2-16.2); Lymphocytes # (auto) 2.8 10 ^3/uL (0.4-5.4); Lymphocytes % (auto) 25.5 % (10.0-50.0); Mean Corpuscular Hemoglobin 27.8 pg (28.0-32.0); Mean Corpuscular Hgb Conc. 32.8 g/dL (32.0-36.0); Mean Corpuscular Volume 84.7 fL (80.0-100.0); Monocytes # (auto) 0.5 10 ^3/uL (0-1.3); Monocytes % (auto) 4.6 % (0.0-12.0); Neutrophils # (auto) 7.1 10 ^3/uL (1.6-8.6); Neutrophils % (auto) 64.4 % (37.0-80.0); Red Blood Cells 5.02 10^6/uL (4.0-5.20); Red Cell Distribution Width 15.7 % (11.8-14.3); White Blood Cell 11.1 10^3/uL (4.4-10.8)
[2023-04-04 01:33] LABS: Alanine Aminotransferase 21 U/L (7-40); Albumin 4.4 g/dL (3.2-4.8); Alkaline Phosphatase 182 U/L (46-116); Anion Gap 8 (5-15); Aspartate Aminotransferase 11 U/L (13-40); BUN/Creatinine Ratio 8.3 (10.0-20.0); Blood Alcohol 5.4 mg/dL (<10); Blood Urea Nitrogen 7 mg/dL (9-23); Calcium 9.2 mg/dL (8.7-10.4); Carbon Dioxide 25 mmol/L (20-30); Chloride 103 mmol/L (98-107); Glucose 208 mg/dL (74-106); INR 0.98 (0.9-1.15); Magnesium 1.8 mg/dL (1.6-2.6); Partial Thromboplastin Time 28.8 SEC (24.5-34.5); Potassium 3.6 mmol/L (3.5-5.1); Prothrombin Time 10.3 sec (9.3-11.8); Sodium 136 mmol/L (136-145)
[2023-04-04 01:34] LABS: Bilirubin, Total 0.9 mg/dL (0.2-1.0); Total Protein 6.8 g/dL (5.7-8.2)
[2023-04-04 01:55] LABS: CRP High Sensitivity 1.16 mg/dL (<1.0)
[2023-04-04 01:57] LABS: Erythrocyte Sedimentation Rate 15 mm/hr (0-20)
[2023-04-04] MEDS ORDERED: HYDROcodone-ACET 7.5/325MG TAB PO ONE (05:15)
[2023-04-04] MEDS ORDERED: ACETAMINOPHEN 325 MG TAB PO PRN (06:15)
[2023-04-04] MEDS ORDERED: ALBUTEROL SULF 2.5 MG/0.5ML(0.5%) NEB SOLN NEB PRN (06:15)
[2023-04-04] MEDS ORDERED: VANCOMYCIN PER PHARMACY 0 MG IV SCH (06:15)
[2023-04-04] MEDS ORDERED: DEXTROSE (50%) 50ML SYRG IV PRN (06:15)
[2023-04-04] MEDS ORDERED: ONDANSETRON HCL 4 MG/2 ML VIAL IV PRN (06:15)
[2023-04-04] MEDS: InsuLIN REG 1unit/0.01ml Soln (100units/ml) SC SCH ×4 (07:56→21:59)
[2023-04-04] MEDS: ACCU-CHEK COMFORT CURVE STRIP VI SCH ×4 (07:57→22:00)
[2023-04-04] MEDS: VANCOMYCIN 1GM/250ML 250 ML IV SCH ×2 (10:00→16:33)
[2023-04-04] MEDS ORDERED: PRASUGREL HCL 10 MG TAB PO SCH (10:00)
[2023-04-04] MEDS ORDERED: MORPHINE SULFATE INJ 2 MG/ml SYRG IV PRN (10:45)
[2023-04-04] MEDS ORDERED: CATHFLO ACTIVASE (ALTEPLASE) 2 MG VIAL IV ONE (10:45)
[2023-04-04] MEDS: RANOLAZINE ER 500 MG TAB PO SCH ×2 (12:29→21:59)
[2023-04-04] MEDS: ISOSORBIDE MONONITRATE ER 60 MG TAB PO SCH ×2 (12:29→22:00)
[2023-04-04] MEDS: FUROSEMIDE 40 MG TAB PO SCH (12:30)
[2023-04-04] MEDS: HYDROcodone-ACET 5/325MG TAB PO PRN ×3 (12:43→21:59)
[2023-04-04] MEDS ORDERED: ATORVASTATIN 20 MG TAB PO SCH (22:00)
[2023-04-05] MEDS: VANCOMYCIN 1GM/250ML 250 ML IV SCH ×2 (02:25→09:42)
[2023-04-05 05:00] VITALS: BP 100/51; PULSE 82; RESP 19; TEMP 97.8; O2SAT 95
[2023-04-05] MEDS: InsuLIN REG 1unit/0.01ml Soln (100units/ml) SC SCH ×2 (06:14→12:47)
[2023-04-05] MEDS: ACCU-CHEK COMFORT CURVE STRIP VI SCH ×2 (06:15→12:46)
[2023-04-05 07:58] LABS: Alanine Aminotransferase 19 U/L (7-40); Alkaline Phosphatase 159 U/L (46-116); Anion Gap 8 (5-15); Blood Urea Nitrogen 10 mg/dL (9-23); Carbon Dioxide 27 mmol/L (20-30); Chloride 102 mmol/L (98-107); Glucose 194 mg/dL (74-106); Potassium 3.4 mmol/L (3.5-5.1); Sodium 137 mmol/L (136-145)
[2023-04-05 07:59] LABS: Albumin 3.7 g/dL (3.2-4.8); Aspartate Aminotransferase 15 U/L (13-40); Bilirubin, Total 0.8 mg/dL (0.2-1.0); Total Protein 5.7 g/dL (5.7-8.2)
[2023-04-05 08:00] LABS: Basophils # (auto) 0.1 10 ^3/uL (0-0.2); Basophils % (auto) 1.4 % (0.0-2.0); Eosinophils # (auto) 0.5 10 ^3/uL (0-0.8); Hematocrit 37.9 % (36.0-46.0); Hemoglobin 12.4 g/dL (12.2-16.2); Mean Corpuscular Hemoglobin 27.8 pg (28.0-32.0); Mean Corpuscular Hgb Conc. 32.8 g/dL (32.0-36.0); Mean Corpuscular Volume 84.6 fL (80.0-100.0); Monocytes # (auto) 0.5 10 ^3/uL (0-1.3); Neutrophils # (auto) 4.4 10 ^3/uL (1.6-8.6); Neutrophils % (auto) 58.6 % (37.0-80.0); Nucleated Red Blood Cells % 0.2 %; Red Blood Cells 4.48 10^6/uL (4.0-5.20); Red Cell Distribution Width 15.4 % (11.8-14.3); White Blood Cell 7.5 10^3/uL (4.4-10.8)
[2023-04-05 09:00] VITALS: BP 97/57; PULSE 97; RESP 18; TEMP 97.8; O2SAT 93
[2023-04-05] MEDS: RANOLAZINE ER 500 MG TAB PO SCH (09:42)
[2023-04-05] MEDS: ISOSORBIDE MONONITRATE ER 60 MG TAB PO SCH (10:00)
[2023-04-05] MEDS: FUROSEMIDE 40 MG TAB PO SCH (10:00)
[2023-04-05 13:00] VITALS: BP 124/76; PULSE 93; RESP 19; TEMP 98.2; O2SAT 91
[2023-04-05 14:29] VITALS: TEMP 36.6
== END 2023-04-05 15:22 | disposition home health service (06) | DRG 315 ==
LOC: ER 19:51 → OVERFLOW 04-04 06:12 → CENTRAL 04-04 14:33
PROVIDERS: ADMIT Nurse Practitioner; ATTEND Nurse Practitioner Acute Care
DX: T82.514A Breakdown (mechanical) of infusion catheter, initial encounter (principal); L02.612 Cutaneous abscess of left foot; Z68.41 Body mass index [BMI] 40.0-44.9, adult; D72.829 Elevated white blood cell count, unspecified; E11.621 Type 2 diabetes mellitus with foot ulcer; E11.65 Type 2 diabetes mellitus with hyperglycemia; E66.01 Morbid (severe) obesity due to excess calories; E78.5 Hyperlipidemia, unspecified; F17.210 Nicotine dependence, cigarettes, uncomplicated; I11.0 Hypertensive heart disease with heart failure; I25.10 Atherosclerotic heart disease of native coronary artery without angina pectoris; K21.9 Gastro-esophageal reflux disease without esophagitis; I50.9 Heart failure, unspecified; L97.529 Non-pressure chronic ulcer of other part of left foot with unspecified severity; Y71.2 Prosthetic and other implants, materials and accessory cardiovascular devices associated with adverse incidents; Y92.89 Other specified places as the place of occurrence of the external cause; Z82.3 Family history of stroke; Z83.3 Family history of diabetes mellitus; Z95.1 Presence of aortocoronary bypass graft; Z90.49 Acquired absence of other specified parts of digestive tract
CPT/HCPCS: 36415; 71045; 73700; 80053; 80202; 80320; 82010; 82962; 83605; 83735; 83880; 83930; 85025; 85610; 85652; 85730; 86141; 87081; G0378; J1815; J2543

== ENCOUNTER 2023-04-25 10:19 | Day surgery (SDC) | payer OTHER, MEDICAID ==
[2023-04-20 09:03] LABS: Urine Epithelial Cast None Seen /hpf (<5)
[2023-04-20 09:10] LABS: Basophils # (auto) 0.2 10 ^3/uL (0-0.2); Basophils % (auto) 2.1 % (0.0-2.0); Eosinophils # (auto) 0.3 10 ^3/uL (0-0.8); Eosinophils % (auto) 3.7 % (0.0-7.0); Hematocrit 41.2 % (36.0-46.0); Hemoglobin 13.3 g/dL (12.2-16.2); Lymphocytes # (auto) 1.9 10 ^3/uL (0.4-5.4); Lymphocytes % (auto) 24.4 % (10.0-50.0); Mean Corpuscular Hemoglobin 27.1 pg (28.0-32.0); Mean Corpuscular Hgb Conc. 32.3 g/dL (32.0-36.0); Monocytes # (auto) 0.3 10 ^3/uL (0-1.3); Monocytes % (auto) 4.2 % (0.0-12.0); Neutrophils # (auto) 5.2 10 ^3/uL (1.6-8.6); Neutrophils % (auto) 65.6 % (37.0-80.0); Nucleated Red Blood Cells % 0.1 %; Red Cell Distribution Width 15.9 % (11.8-14.3)
[2023-04-20 09:24] LABS: INR 0.95 (0.9-1.15); Partial Thromboplastin Time 30.4 SEC (24.5-34.5)
[2023-04-20 09:25] LABS: Urine Bacteria FEW /hpf (None Seen); Urine Blood Negative /uL (Negative); Urine Clarity HAZY (Clear); Urine Color Yellow (Yellow); Urine Protein, UAD TRACE (Negative); Urine Urobilinogen Normal (Negative); Urine WBC 2 /hpf (0 - 5); Urine pH 5.5 (5.0-8.0)
[2023-04-20 09:39] LABS: Alanine Aminotransferase 19 U/L (7-40); Albumin 4.3 g/dL (3.2-4.8); Alkaline Phosphatase 192 U/L (46-116); Anion Gap 12 (5-15); Aspartate Aminotransferase 15 U/L (13-40); BUN/Creatinine Ratio 7.1 (10.0-20.0); Bilirubin, Total 0.7 mg/dL (0.2-1.0); Blood Urea Nitrogen 6 mg/dL (9-23); Calcium 9.6 mg/dL (8.5-10.1); Carbon Dioxide 26 mmol/L (20-30); Chloride 103 mmol/L (98-107); Glucose 172 mg/dL (74-106); Potassium 3.8 mmol/L (3.5-5.1); Sodium 141 mmol/L (136-145); Total Protein 6.6 g/dL (5.7-8.2)
[~2023-04-25] VITALS: Ht 147.3 cm; Wt 127.9 kg
[2023-04-25] MEDS ORDERED: ceFAZolin 2 GM/D5W100ml 100 ML IV ONE (10:36)
[2023-04-25] MEDS ORDERED: PROPOFOL 10 MG/ML 20 ML IV ONE (10:58)
[2023-04-25] MEDS ORDERED: fentaNYL CITRATE 100 MCG/2 ML VL ONE (10:58)
[2023-04-25 12:32] VITALS: PULSE 95; RESP 18; TEMP 97.1; O2SAT 93
[2023-04-25] MEDS ORDERED: ONDANSETRON HCL 4 MG/2 ML VIAL IV PRN (12:45)
[2023-04-25] MEDS: HYDROmorphone HCL 2 MG/ML VL/or syr IV PRN (13:20)
[2023-04-25] MEDS: BUPIVACAINE HCL 0.25% P/F 10 ML VIAL ONE (13:50)
[2023-04-25] MEDS: LIDOCAINE HCL (LOCAL ANESTH.) 0.5 % 50ML MDV IJ ONE (13:51)
[2023-04-25] MEDS: MEPERIDINE HCL (25 MG/ML) 1ML VIAL IV PRN (14:35)
[2023-04-25 15:00] VITALS: BP 106/52; PULSE 62; RESP 14; O2SAT 92
[2023-04-25] MEDS ORDERED: BUPIVACAINE HCL 0.25% P/F 10 ML VIAL IJ ONE (15:59)
== END 2023-04-25 15:59 | disposition home or self-care (01) ==
LOC: SUR 10:19 → PACU ICU 14:18 → UNDOADMIN 14:18 → OVERFLOW 14:18 → UNDODISIN 16:00
PROVIDERS: ATTEND Podiatrist
DX: E11.621 Type 2 diabetes mellitus with foot ulcer (principal); M86.172 Other acute osteomyelitis, left ankle and foot; B35.3 Tinea pedis; Z79.84 Long term (current) use of oral hypoglycemic drugs; Z79.899 Other long term (current) drug therapy
CPT/HCPCS: 11042; 36415; 80053; 81001; 82962; 85025; 85610; 85730; 87070; 87075; 87077; 87186; 87205; 88305; J1170; J2175; J2704; J3010; J3490; G0378

== ENCOUNTER → 2023-06-06 | Outpatient (CLI) | payer OTHER, MEDICAID | END | disposition home or self-care (01) | LOC: LAB 16:23 | PROVIDERS: ATTEND Podiatrist | DX: E11.621 Type 2 diabetes mellitus with foot ulcer (principal) | CPT/HCPCS: 87077; 87186; 87205 ==

== ENCOUNTER 2024-06-16 13:52 | Inpatient (IN) | payer OTHER, MEDICAID ==
[~2024-06-16] VITALS: Ht 172.7 cm; Wt 116.1 kg
--- NOTE | 2024-06-16 14:28 | ECG ---
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
--- NOTE | 2024-06-16 15:17 | DVH ---
EXAM: CT HEAD WITHOUT CONTRAST HISTORY: dizzy blurred vision COMPARISON: None TECHNIQUE: Axial images were obtained and reformatted in coronal and sagittal planes. All CT scans at this medical facility are performed using dose modulation techniques as appropriate t o a performed exam including the following: Automated exposure control was utilized; adjustment of th e MA and/or KV according to patient size; and use of iterative reconstruction technique. CT Dose: CTDI volume is 53 mGy. Dose-length product is 859 mGy*cm FINDINGS: Supratentorial Region: No evidence for large acute territorial ischemia. No intracranial hemorrhage is noted. Confluent white matter hypoattenuating foci are noted bilaterally, which typically reflect chronic microvascular ischemic changes. Posterior Fossa: No acute abnormality. Brainstem: Unremarkable. Sellar/Suprasellar Region: Unremarkable. Ventricles, Cisterns, Sulci: Age-appropriate. Orbits: Unremarkable. Paranasal Sinuses: Unremarkable. Mastoid Air Cells: Unremarkable. Vasculature: Unremarkable. Bones/Soft Tissues: No acute abnormality. Other: None. IMPRESSION: 1. No acute intracranial process.
[2024-06-16 15:18] LABS: Basophils # (auto) 0.1 10 ^3/uL (0-0.2); Basophils % (auto) 1.2 % (0.0-2.0); Eosinophils # (auto) 0.2 10 ^3/uL (0-0.8); Eosinophils % (auto) 1.8 % (0.0-7.0); Hematocrit 43.1 % (36.0-46.0); Hemoglobin 14.1 g/dL (12.2-16.2); Lymphocytes # (auto) 3.2 10 ^3/uL (0.4-5.4); Mean Corpuscular Hemoglobin 28.1 pg (28.0-32.0); Mean Corpuscular Hgb Conc. 32.7 g/dL (32.0-36.0); Mean Corpuscular Volume 85.9 fL (80.0-100.0); Monocytes # (auto) 0.5 10 ^3/uL (0-1.3); Monocytes % (auto) 5.2 % (0.0-12.0); Neutrophils # (auto) 5.2 10 ^3/uL (1.6-8.6); Neutrophils % (auto) 56.8 % (37.0-80.0); Nucleated Red Blood Cells % 0.1 %; Platelet Count (auto) 289 10^3/uL (140-450); Red Blood Cells 5.01 10^6/uL (4.0-5.20); Red Cell Distribution Width 15.9 % (11.8-14.3); White Blood Cell 9.1 10^3/uL (4.4-10.8)
[2024-06-16 15:27] LABS: Potassium 4.3 mmol/L (3.5-5.1); Sodium 145 mmol/L (136-145)
[2024-06-16 15:28] LABS: Anion Gap 9 (5-15); Carbon Dioxide 27 mmol/L (20-31)
[2024-06-16 15:29] LABS: Calcium 9.7 mg/dL (8.7-10.4)
[2024-06-16 15:32] LABS: Chloride 109 mmol/L (98-107)
[2024-06-16 15:33] LABS: BUN/Creatinine Ratio 11.2 (10.0-20.0); Blood Urea Nitrogen 11 mg/dL (9-23); Glucose 88 mg/dL (74-106)
[2024-06-16] MEDS: ONDANSETRON ODT 4 MG TAB PO ONE (16:14)
[2024-06-16] MEDS: MECLIZINE HCL 25 MG TAB PO ONE (16:15)
[2024-06-16 17:56] LABS: Urine Bacteria MANY /hpf (None Seen); Urine Blood Negative /uL (Negative); Urine Budding Yeast OCCASIONAL /hpf (None Seen); Urine Clarity Turbid (Clear); Urine Color Light-Orange (Yellow); Urine Hyaline Cast FEW /lpf (0 - 2); Urine Mucus FEW (None Seen); Urine Protein, UAD TRACE (Negative); Urine Specific Gravity 1.016 (1.001-1.035); Urine Squamous Epithelial Cell MOD /hpf (<5); Urine Urobilinogen Normal (Negative); Urine WBC 276 /HPF (0-5); Urine WBC Clumps PRESENT /hpf (None Seen); Urine pH 5.5 (5.0-9.0)
--- NOTE | 2024-06-16 18:08 | ED.PDOC ---
HPI (NEURO) HPI Comments 59-year-old female with a history of hypertension, diabetes, dyslipidemia, CAD, neuropathy and cervical disc disease brought in by family for evaluation of dizziness intermittently for the past 2 months, more severe over the past several days. Patient states the episodes are starting to last longer, up to 3 or 4 hours induration. She states that it feels like the sensation of falling or movement when she is not moving. Occasionally it is associated with nausea and blurred vision and/or visual disturbances between the left and right eye that make her visual field appear disjointed. Patient states she has difficulty watching TV due to the dizziness and visual disturbances and that closing one eye sometimes alleviate symptoms. Patient states she had an ophthalmologic evaluation about a month ago and was told her evaluation was normal. She also reports a frontal and occipital headache. She denies any focal weakness, numbness or syncope. 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 No facial asymmetry.) Neck: Full Range of Motion, Normal Inspection Respiratory: Lungs Clear, No Accessory Muscle Use, No Respiratory Distress, Normal Breath Sounds Cardiovascular: No Edema, No JVD, Regular Rate/Rhythm Breast Exam: Deferred Gastrointestinal: Non Tender, Soft Genitalia: Deferred Pelvic: Deferred Rectal: Deferred Extremities: Normal range of motion, No pedal edema, Other (Chronic left foot diabetic wound) Neurologic: Alert (Oriented x4), Normal Affect, Normal Mood, Other (Ambulatory without difficulty. No gross focal deficit. Head movement reproduces dizziness symptoms.) Cerebellar Function: NOT DONE Reflexes: NOT DONE Skin: Dry, Normal Color, Warm Lymphatic: NOT DONE EKG EKG : Comments Sinus rhythm, rate 84, normal intervals, normal axis, normal QRS, nonspecific T change. Was a procedure done? Was a procedure done?: No Differential Diagnosis (SZ) Seizure: CVA/TIA CVA: Electrolyte Imbalance, Encephalopathy, Hypoglycemia General Weakness: Dehydration, Labyrinthitis, Meniere's disease, Vertigo: central, Vertigo: peripheral, Vestibular neuronitis Headache: Migraine, Epidural Hemorrhage, Intracerebral Hemorrhage, Subarachnoid Hemorrhage, Subdural Hemorrhage, Mass Lesion, Meningitis X-Ray, Labs, Meds, VS Vital Signs Date Time Temp Pulse Resp B/P (MAP) Pulse Ox O2 Delivery O2 Flow Rate FiO2 06/16/24 16:20 82 17 96 Room Air 06/16/24 16:20 98.7 82 17 118/69 (85) 96 98.7 06/16/24 14:15 84 06/16/24 13:52 98.5 89 16 132/73 (92) 97 Lab Test 06/16/24 17:26 06/16/24 16:09 06/16/24 14:52 06/16/24 14:16 Range/Units Urine Color Light-orange Yellow Urine Clarity Turbid H Clear Urine pH 5.5 5.0-9.0 Urine Specific [place] 1.016 1.001-1.035 Urine Protein Trace H Negative Urine Ketones Negative Negative Urine Blood Negative Negative /uL Urine Nitrite 2+ H Negative Urine Bilirubin Negative Negative Urine Urobilinogen Normal Negative mg/dL Urine Leukocyte Esterase 3+ Negative /uL Urine RBC 2 0 - 4 /hpf Urine WBC Clumps Present None Seen /hpf Urine Microscopic WBC 276 H 0-5 /HPF Urine Squamous Epithelial Cells Mod <5 /hpf Urine Bacteria Many H None Seen /hpf Urine Hyaline Casts Few 0 - 2 /lpf Urine Mucus Few None Seen Urine Yeast (Budding) Occasional None Seen /hpf Urine Glucose Normal Normal mg/dL Troponin I High Sensitivity < 3 L < 3 L </=34 ng/L White Blood Count 9.1 4.4-10.8 10^3/uL Red Blood Count 5.01 4.0-5.20 10^6/uL Hemoglobin 14.1 12.2-16.2 g/dL Hematocrit 43.1 36.0-46.0 % Mean Corpuscular Volume 85.9 80.0-100.0 fL Mean Corpuscular Hemoglobin 28.1 28.0-32.0 pg Mean Corpuscular Hemoglobin Concent 32.7 32.0-36.0 g/dL Red Cell Distribution Width 15.9 H 11.8-14.3 % Platelet Count 289 140-450 10^3/uL Mean Platelet Volume 8.0 6.9-10.8 fL Neutrophils (%) (Auto) 56.8 37.0-80.0 % Lymphocytes (%) (Auto) 35.0 10.0-50.0 % Monocytes (%) (Auto) 5.2 0.0-12.0 % Eosinophils (%) (Auto) 1.8 0.0-7.0 % Basophils (%) (Auto) 1.2 0.0-2.0 % Neutrophils # (Auto) 5.2 1.6-8.6 10 ^3/uL Lymphocytes # (Auto) 3.2 0.4-5.4 10 ^3/uL Monocytes # (Auto) 0.5 0-1.3 10 ^3/uL Eosinophils # (Auto) 0.2 0-0.8 10 ^3/uL Basophils # (Auto) 0.1 0-0.2 10 ^3/uL Nucleated Red Blood Cells 0.1 % Sodium Level 145 136-145 mmol/L Potassium Level 4.3 3.5-5.1 mmol/L Chloride Level 109 H 98-107 mmol/L Carbon Dioxide Level 27 20-31 mmol/L Anion Gap 9 5-15 Blood Urea Nitrogen 11 9-23 mg/dL Creatinine 0.98 0.550-1.02 mg/dL Glomerular Filtration Rate Calc 67 >90 mL/min BUN/Creatinine Ratio 11.2 10.0-20.0 Serum Glucose 88 74-106 mg/dL Calcium Level 9.7 8.7-10.4 mg/dL B-Type Natriuretic Peptide 22.42 0-100 pg/mL POC Glucose 87 70-106 mg/dl Current Medications Medications (Trade) Dose Ordered Sig/Nicolette Route Start Time Stop Time Status Last Admin Meclizine HCl (Antivert Tablet) 50 mg ONCE ONCE PO 06/16/24 14:30 06/16/24 14:33 DC 06/16/24 16:15 Ondansetron HCl (Zofran Po) 4 mg ONCE ONCE PO 06/16/24 14:30 06/16/24 14:33 DC 06/16/24 16:14 Ketorolac Tromethamine (Toradol Injection) 30 mg ONCE ONCE IV 06/16/24 17:45 06/16/24 17:59 DC 06/16/24 22:38 PROCEDURE(s): HWOCT - HEAD WITHOUT CONTRAST REASON: dizzy blurred vision ORDER NUMBER(s): [id number], ACCESSION NUMBER(s): [id number] EXAM: CT HEAD WITHOUT CONTRAST HISTORY: dizzy blurred vision COMPARISON: None TECHNIQUE: Axial images were obtained and reformatted in coronal and sagittal planes. All CT scans at this medical facility are performed using dose modulation techniques as appropriate to a performed exam including the following: Automated exposure control was utilized; adjustment of the MA and/or KV according to patient size; and use of iterative reconstruction technique. CT Dose: CTDI volume is 53 mGy. Dose-length product is 859 mGy*cm FINDINGS: Supratentorial Region: No evidence for large acute territorial ischemia. No intracranial hemorrhage is noted. Confluent white matter hypoattenuating foci are noted bilaterally, which typically reflect chronic microvascular ischemic changes. Posterior Fossa: No acute abnormality. Brainstem: Unremarkable. Sellar/Suprasellar Region: Unremarkable. Ventricles, Cisterns, Sulci: Age-appropriate. Orbits: Unremarkable. Paranasal Sinuses: Unremarkable. Mastoid Air Cells: Unremarkable. Vasculature: Unremarkable. Bones/Soft Tissues: No acute abnormality. Other: None. IMPRESSION: 1. No acute intracranial process. X-Ray, Labs, Meds, VS Comment 59-year-old female with a history of CAD, hypertension, diabetes, dyslipidemia, neuropathy, cervical disc disease brought in by family complaining of dizziness and visual disturbances. Vitals unremarkable Exam remarkable for reproducible symptoms with head movement Rhythm strip independently interpreted by me: Sinus rhythm, rate 84, no ectopy. CT head unremarkable CBC, metabolic panel, BNP and 2 serial troponins unremarkable for any abnormality significance UA pending Patient treated with the following in the ED: Meclizine 50 mg p.o., Zofran ODT 4 mg p.o., Toradol 30 mg IV On re-evaluation, patient states dizziness has improved and headache is somewhat improved but still present. Plan is to admit the patient for brain MRI and Neurology evaluation. Time of 1ST Reevaluation: 18:00 Reevaluation 1ST: Improved Patient Education/Counseling: Diagnosis, Treatment, Need For Follow Up Family Education/Counseling: No Family Present Departure 1 Departure Time of Disposition: 18:00 Impression: Primary Impression: Visual disturbances Additional Impressions: Vertigo Cephalgia Qualified Codes: R51.9 - Headache, unspecified; G89.29 - Other chronic pain Disposition: ADMITTED INPATIENT Admit to: Tele Condition: Guarded Critical Care Note Critical Care Time?: No Stability Stability form required: No Heart Score Heart Score: Heart Score Response (Comments) Value History N/A 0 EKG N/A 0 Age N/A 0 Risk Factors N/A 0 Troponin N/A 0 Total 0 ROME MEYERS MD Jun 16, 2024 18:08
[2024-06-16] MEDS ORDERED: MECLIZINE HCL 25 MG TAB PO PRN (19:15)
[2024-06-16] MEDS ORDERED: ALBUTEROL SULF 2.5 MG/0.5ML(0.5%) NEB SOLN NEB PRN (19:15)
[2024-06-16] MEDS ORDERED: DEXTROSE (50%) 50ML SYRG IV PRN (19:15)
[2024-06-16] MEDS ORDERED: ONDANSETRON HCL 4 MG/2 ML VIAL IV PRN (19:15)
[2024-06-16 21:58] VITALS: BP 118/69; PULSE 82; RESP 16; TEMP 98.7; O2SAT 96
[2024-06-16] MEDS: ACCU-CHEK COMFORT CURVE STRIP VI SCH (22:00)
[2024-06-16] MEDS: InsuLIN REG 1unit/0.01ml Soln (100units/ml) SC SCH (22:00)
[2024-06-16] MEDS: KETOROLAC TROMETH 30 MG/ML 1ML VIAL IV ONE (22:38)
[2024-06-16 22:49] VITALS: BP 143/84; PULSE 103; RESP 18; TEMP 98.2; O2SAT 95
[2024-06-16] MEDS: ATORVASTATIN 20 MG TAB PO SCH (23:35)
[2024-06-16] MEDS: RANOLAZINE ER 500 MG TAB PO SCH (23:36)
--- NOTE | 2024-06-16 23:42 | DVHHP2 ---
History of Present Illness Reason for Visit: Dizziness History of Present Illness 59-year-old female presents for evaluation of dizziness. Patient reports a two month history of having intermittent dizziness. She states over the past three days symptoms have become more frequent. She states episodes last from 2-4 hours. She states being unable to ambulate when she feels dizzy. Reports having a headache associated with the dizziness. No cardiac or respiratory complaints. Past Medical History CAD, CHF, diabetes mellitus, current, dyslipidemia, hypertension, mi Past Surgical History Cholecystectomy, CABG, PTCA, appendectomy Family History Heart disease and diabetes mellitus Smoke: <1 pack per day ALCOHOL: none Drugs: None Lives: with Family Review of Systems Review of Systems Review of systems are currently negative otherwise addressed in HPI. Allergies: Coded Allergies: Hydrochlorothiazide (Verified Allergy, Unknown, 12/12/21) Gabapentin (Unverified Adverse Reaction, Unknown, LEG SWELLING, 08/05/21) PREGABALIN IS FINE, NO REACTION Medications Current Medications Medications Dose Ordered Sig/Nicolette Route Start Time Stop Time Status Last Admin Dose Admin Albuterol 2.5 mg Q6HPRN PRN NEB 06/16/24 19:15 Metoprolol Succinate 50 mg DAILY PO 06/17/24 10:00 Ranolazine 500 mg BID PO 06/16/24 22:00 06/16/24 23:36 500 MG Atorvastatin Calcium 20 mg HS PO 06/16/24 22:00 06/16/24 23:35 20 MG Prasugrel 10 mg DAILY PO 06/17/24 10:00 Furosemide 40 mg DAILY PO 06/17/24 10:00 Meclizine HCl 25 mg Q6HPRN PRN PO 06/16/24 19:15 Diagnostic Test (Pha) 1 strip ACHS 06/16/24 22:00 06/16/24 22:00 1 STRIP Insulin Human Regular ACHS SC 06/16/24 22:00 Dextrose 50 ml UD PRN IV 06/16/24 19:15 Ondansetron HCl 4 mg Q4HP PRN IV 06/16/24 19:15 Acetaminophen 650 mg Q6HP PRN PO 06/16/24 19:15 Exam Vital Signs Vital Signs Date Time Temp Pulse Resp B/P (MAP) Pulse Ox O2 Delivery O2 Flow Rate FiO2 06/16/24 22:30 Room Air* 0 21 06/16/24 22:28 97.7 81 20 134/70 (14) 94 97.7 Exam Gen: 59-year-old female in no apparent distress, obese Skin: Warm, dry, normal color and texture, no rash. HEENT: Normocephalic atraumatic, mucous membranes moist and pink. Neck: Cervical and supraclavicular nodes normal without enlargement, trachea is midline, thyroid gland is normal without masses. Pulmonary: Clear to auscultation and percussion bilaterally. Cardiac: Regular rate and rhythm. No murmur Abdomen: Soft, nontender, nondistended, bowel sounds present all 4 quadrants, no guarding, no rigidity, no organomegaly. Extremities: No cyanosis, clubbing, no edema Neuro: Cranial nerves II through XII grossly intact, normal affect and speech, no focal motor deficits. Labs/Xrays ORDERING PHYSICIAN: ROME MEYERS MD PROCEDURE(s): HWOCT - HEAD WITHOUT CONTRAST REASON: dizzy blurred vision ORDER NUMBER(s): [id number], ACCESSION NUMBER(s): [id number] EXAM: CT HEAD WITHOUT CONTRAST HISTORY: dizzy blurred vision COMPARISON: None TECHNIQUE: Axial images were obtained and reformatted in coronal and sagittal planes. All CT scans at this medical facility are performed using dose modulation techniques as appropriate to a performed exam including the following: Automated exposure control was utilized; adjustment of the MA and/or KV according to patient size; and use of iterative reconstruction technique. CT Dose: CTDI volume is 53 mGy. Dose-length product is 859 mGy*cm FINDINGS: Supratentorial Region: No evidence for large acute territorial ischemia. No intracranial hemorrhage is noted. Confluent white matter hypoattenuating foci are noted bilaterally, which typically reflect chronic microvascular ischemic changes. Posterior Fossa: No acute abnormality. Brainstem: Unremarkable. Sellar/Suprasellar Region: Unremarkable. Ventricles, Cisterns, Sulci: Age-appropriate. Orbits: Unremarkable. Paranasal Sinuses: Unremarkable. Mastoid Air Cells: Unremarkable. Vasculature: Unremarkable. Bones/Soft Tissues: No acute abnormality. Other: None. IMPRESSION: 1. No acute intracranial process. Labs Test 06/16/24 17:26 06/16/24 16:09 06/16/24 14:52 06/16/24 14:16 Range/Units Urine Color Light-orange Yellow Urine Clarity Turbid H Clear Urine pH 5.5 5.0-9.0 Urine Specific [place] 1.016 1.001-1.035 Urine Protein Trace H Negative Urine Ketones Negative Negative Urine Blood Negative Negative /uL Urine Nitrite 2+ H Negative Urine Bilirubin Negative Negative Urine Urobilinogen Normal Negative mg/dL Urine Leukocyte Esterase 3+ Negative /uL Urine RBC 2 0 - 4 /hpf Urine WBC Clumps Present None Seen /hpf Urine Microscopic WBC 276 H 0-5 /HPF Urine Squamous Epithelial Cells Mod <5 /hpf Urine Bacteria Many H None Seen /hpf Urine Hyaline Casts Few 0 - 2 /lpf Urine Mucus Few None Seen Urine Yeast (Budding) Occasional None Seen /hpf Urine Glucose Normal Normal mg/dL Troponin I High Sensitivity < 3 L </=34 ng/L White Blood Count 9.1 4.4-10.8 10^3/uL Red Blood Count 5.01 4.0-5.20 10^6/uL Hemoglobin 14.1 12.2-16.2 g/dL Hematocrit 43.1 36.0-46.0 % Mean Corpuscular Volume 85.9 80.0-100.0 fL Mean Corpuscular Hemoglobin 28.1 28.0-32.0 pg Mean Corpuscular Hemoglobin Concent 32.7 32.0-36.0 g/dL Red Cell Distribution Width 15.9 H 11.8-14.3 % Platelet Count 289 140-450 10^3/uL Mean Platelet Volume 8.0 6.9-10.8 fL Neutrophils (%) (Auto) 56.8 37.0-80.0 % Lymphocytes (%) (Auto) 35.0 10.0-50.0 % Monocytes (%) (Auto) 5.2 0.0-12.0 % Eosinophils (%) (Auto) 1.8 0.0-7.0 % Basophils (%) (Auto) 1.2 0.0-2.0 % Neutrophils # (Auto) 5.2 1.6-8.6 10 ^3/uL Lymphocytes # (Auto) 3.2 0.4-5.4 10 ^3/uL Monocytes # (Auto) 0.5 0-1.3 10 ^3/uL Eosinophils # (Auto) 0.2 0-0.8 10 ^3/uL Basophils # (Auto) 0.1 0-0.2 10 ^3/uL Nucleated Red Blood Cells 0.1 % Sodium Level 145 136-145 mmol/L Potassium Level 4.3 3.5-5.1 mmol/L Chloride Level 109 H 98-107 mmol/L Carbon Dioxide Level 27 20-31 mmol/L Anion Gap 9 5-15 Blood Urea Nitrogen 11 9-23 mg/dL Creatinine 0.98 0.550-1.02 mg/dL Glomerular Filtration Rate Calc 67 >90 mL/min BUN/Creatinine Ratio 11.2 10.0-20.0 Serum Glucose 88 74-106 mg/dL Calcium Level 9.7 8.7-10.4 mg/dL B-Type Natriuretic Peptide 22.42 0-100 pg/mL POC Glucose 87 70-106 mg/dl Assessment/Plan Assessment/Plan Assessment Vertigo Cephalgia Hypertension Diabetes mellitus Obesity Plan Admit the patient to Med surge to the hospitalist MRI of the brain pending Trial of meclizine Resume home medications Continue treatment per orders. Plan discussed with: Patient My Orders Orders - HILARIO STEVENS Procedure Category Date Status Time Albuterol Medneb PHA 06/16/24 In Process (Ventolin Medneb) 19:15 Metoprolol Xl PHA 06/17/24 In Process Succinate (Toprol Xl) 10:00 Ranolazine (Ranexa Er) PHA 06/16/24 In Process 22:00 Atorvastatin (Lipitor) PHA 06/16/24 In Process 22:00 Prasugrel Hcl Tablet PHA 06/17/24 In Process (Effient Tablet) 10:00 Furosemide Tablet PHA 06/17/24 In Process (Lasix Tablet) 10:00 Meclizine Tablet PHA 06/16/24 In Process (Antivert Tablet) 19:15 Glucose Blood PHA 06/16/24 In Process (Accu-Chek Comfort 22:00 Insulin R (Human) PHA 06/16/24 In Process (Insulin R) 22:00 Dextrose 50% Syringe PHA 06/16/24 In Process 19:15 Admit ADMIT 06/16/24 Transmitted 19:14 Ondansetron Hcl PHA 06/16/24 In Process (Zofran) 19:15 Cardiac DIET 06/17/24 Transmitted Diet-2gna,Lofat,Lochol Breakfast Echo 2d Mode Cardiac US 06/16/24 Logged DOP 19:14 Condition: Stable ETHEL 06/16/24 In Process 19:14 Acetaminophen Tablet PHA 06/16/24 In Process (Tylenol Tablet) 19:15 Bedrest With Bathroom ETHEL 06/16/24 In Process Privileg 19:14 Brain Head Wo Contrast MRI 06/16/24 Logged 19:14 Basic Metabolic Panel LAB 06/17/24 Verified 04:00 Date of Service: Jun 16, 2024 Billing Provider: HILARIO STEVENS Common Visit Codes: [id number] INP/OBS CARE (MOD) HILARIO STEVENS Jun 16, 2024 23:42
[2024-06-17] VITALS (11 sets, daily range): BP systolic 119–143; BP diastolic 56–89; PULSE 72–85; RESP 17–19; TEMP 97.7–97.9; O2SAT 92–99
[2024-06-17 05:55] LABS: Chloride 106 mmol/L (98-107); Potassium 3.7 mmol/L (3.5-5.1); Sodium 142 mmol/L (136-145)
[2024-06-17 05:56] LABS: Anion Gap 11 (5-15); Carbon Dioxide 25 mmol/L (20-31)
[2024-06-17 06:02] LABS: BUN/Creatinine Ratio 13.5 (10.0-20.0); Blood Urea Nitrogen 13 mg/dL (9-23); Glucose 85 mg/dL (74-106)
[2024-06-17] MEDS: PRASUGREL HCL 10 MG TAB PO SCH (10:01)
[2024-06-17] MEDS: FUROSEMIDE 40 MG TAB PO SCH (10:02)
[2024-06-17] MEDS: METOPROLOL SUCCINATE XL 50 MG TAB PO SCH (10:03)
--- NOTE | 2024-06-17 10:15 | DVH ---
PROCEDURE: MRI BRAIN HEAD WO CONTRAST INDICATION: dizziness EXAM DATE: 06/17/2024 09:36 AM COMPARISON: None TECHNIQUE: MRI of the brain without intravenous contrast. FINDINGS: Diffusion weighted images of the brain demonstrate no evidence of acute infarction. There is no evidence of acute intracranial hemorrhage, extra-axial collection, mass effect, midline s hift, herniation or hydrocephalus. The ventricles, sulci and cisterns appear age appropriate. Bteg-yc-nsoklqfa changes of chronic microvascular ischemic disease with involvement of the franklin. There are no signal abnormalities on the susceptibility weighted sequences. The major vascular flow voids are present. The visualized paranasal sinuses and mastoid air cells are clear. The surrounding soft tissues and o sseous structures are unremarkable. IMPRESSION: 1. No evidence of acute infarction, intracranial hemorrhage, mass effect or hydrocephalus. Mild-to-mo derate changes of chronic microvascular ischemic disease. No acute ischemia. HS:Y
--- NOTE | 2024-06-17 13:16 | DVHPN2 ---
Reviewed: Care Plan, H&P, Labs, Medications, Previous Orders, Radiology Changes from previous H/P or p: No Changes Objective Vitals Vital Signs Date Time Temp Pulse Resp B/P (MAP) Pulse Ox O2 Delivery O2 Flow Rate FiO2 06/17/24 10:03 78 119/56 06/17/24 10:00 99 Room Air* 0 21 06/17/24 09:00 97.9 19 97.9 Intake/Output Intake and Output 06/17/24 07:00 Intake Total 0 ml Balance 0 ml Intake Oral 0 ml Medications Current Medications Medications Dose Ordered Sig/Nicolette Route Start Time Stop Time Status Last Admin Dose Admin Albuterol 2.5 mg Q6HPRN PRN NEB 06/16/24 19:15 Metoprolol Succinate 50 mg DAILY PO 06/17/24 10:00 06/17/24 10:03 50 MG Ranolazine 500 mg BID PO 06/16/24 22:00 06/17/24 10:01 500 MG Atorvastatin Calcium 20 mg HS PO 06/16/24 22:00 06/16/24 23:35 20 MG Prasugrel 10 mg DAILY PO 06/17/24 10:00 06/17/24 10:01 10 MG Furosemide 40 mg DAILY PO 06/17/24 10:00 06/17/24 10:02 40 MG Meclizine HCl 25 mg Q6HPRN PRN PO 06/16/24 19:15 Diagnostic Test (Pha) 1 strip ACHS 06/16/24 22:00 06/17/24 07:06 1 STRIP Insulin Human Regular ACHS SC 06/16/24 22:00 Dextrose 50 ml UD PRN IV 06/16/24 19:15 Ondansetron HCl 4 mg Q4HP PRN IV 06/16/24 19:15 Acetaminophen 650 mg Q6HP PRN PO 06/16/24 19:15 Laboratory Results Laboratory Tests 06/16/24 14:52 06/17/24 03:57 Chemistry Test 06/16/24 14:52 06/17/24 03:57 Calcium Level 9.7 mg/dL (8.7-10.4) 10.0 mg/dL (8.7-10.4) Cardiac Markers Test 06/16/24 14:52 B-Type Natriuretic Peptide 22.42 pg/mL (0-100) Urinalysis Test 06/16/24 17:26 Urine Color Light-orange (Yellow) Urine Clarity Turbid (Clear) H Urine pH 5.5 (5.0-9.0) Urine Specific [place] 1.016 (1.001-1.035) Urine Protein Trace (Negative) H Urine Ketones Negative (Negative) Urine Blood Negative /uL (Negative) Urine Nitrite 2+ (Negative) H Urine Bilirubin Negative (Negative) Urine Urobilinogen Normal mg/dL (Negative) Urine Leukocyte Esterase 3+ /uL (Negative) Urine RBC 2 /hpf (0 - 4) Urine WBC Clumps Present /hpf (None Seen) Urine Microscopic WBC 276 /HPF (0-5) H Urine Squamous Epithelial Cells Mod /hpf (<5) Urine Bacteria Many /hpf (None Seen) H Urine Hyaline Casts Few /lpf (0 - 2) Urine Mucus Few (None Seen) Urine Yeast (Budding) Occasional /hpf (None Urine Glucose Normal mg/dL (Normal) Labs and/or images reviewed: Labs reviewed by me, Image(s) reviewed by me Assessment/Plan Assessment/Plan Sepsis secondary to urinary tract infection: Blood cultures urine cultures Rocephin Dizziness two months: CT head negative MRI brain negative: Carotid ultrasound pending Neurology consult for Dr. Eddy History of coronary artery disease Congestive heart failure Diabetes Hypercholesterolemia Hypertension History of DC History of CABG and PTCA Will check urine drug screen Time spent 65 minutes Advanced care planning time 20 minutes Patient is full code Plan discussed with: Patient My Orders Orders - AMBER HURT MD Procedure Category Date Status Time Blood Culture TOSHA 06/17/24 Logged 13:10 Urine Bacterial TOSHA 06/17/24 Logged Culture 13:10 Date of Service: Jun 17, 2024 Billing Provider: AMBER HURT MD Common Visit Codes: [id number] CARE 30-74 MIN AMBER HURT MD Jun 17, 2024 13:16
[2024-06-17] MEDS: PREGABALIN CAPSULE 75 MG CAP PO SCH (14:14)
[2024-06-17] MEDS: ACETAMINOPHEN 325 MG TAB PO PRN (14:14)
--- NOTE | 2024-06-17 14:35 | DVH ---
CAROTID ARTERIAL DOPPLER CLINICAL HISTORY: Doctor's request TECHNIQUE: Doppler study of bilateral carotid/vertebral arteries were performed. Comparison: US CAROTID DUPLX W COLOR DOP on DOS: 06/21/22 FINDINGS: The bilateral common carotid, external and internal carotid arteries appear patent without hemodynami melvi significant stenosis. There is no significant flow limiting plaque formation identified.The sp ectral wave forms and peak systolic velocities are within normal limits. Antegrade flow is present within the vertebral arteries with appropriate velocities and waveforms. Right ICA/CCA PSV ratio = 1.2. Left ICA/CCA PSV ratio = 0.9 . IMPRESSION: 1. No hemodynamically significant stenosis within the carotid arteries. HS:Y
--- NOTE | 2024-06-17 15:52 | DVHSR ---
APPROVED REPORT EXAM: Two-dimensional and M-mode echocardiogram with Doppler and color Doppler. Blood Pressure: 119/70 mmHg INDICATION EF RISK FACTORS Height: 68, Weight: 251 DIMENSIONS LVDd4.4 (3.8-5.7cm)LA (2D)4.2 (1.9-4.0cm)Aortic Root3.7 (2.0-3.7cm) LVDs3.0 (2.5-4.0cm)LA (MM) (1.9-4.0cm)Aortic Cusp Exc1.9 (1.5-2.0cm) EF (%) 60.0 (55-70%)Rt. Atrium4.0 (1.9-4.0cm)Asc. Aorta3.1 cm IVSd1.2 (0.7-1.1cm)RV (D) (1.8-2.4cm) PWd1.1 (0.7-1.1cm) Mitral Valve MitralMitral Stenosis E wave1.05m/sMV Mean GR.mmHg A wave1.03m/sMV Peak GR.48mmHg E/A ratio1.02D MVAcm2 DECEL [id number] 1/2 Pwtm00ov IVRTmsDop MVA2.35cm2 Aortic Valve Aortic ValveAortic Stenosis V11.16m/Kathy Mean GR.4mmHg V21.38m/Kathy Peak GR.8mmHg LVOT Diameter2.1 (1.8-2.4cm)Doppler AVA2.91cm2 Pulmonic Valve V20.78m/s Tricuspid Valve TR Velocity2.57m/s [id number] Conclusion LAE BORDERLINE LONG EF >55% MILD PI
--- NOTE | 2024-06-17 22:17 | DVHINCON2 ---
Date of service: Jun 17, [address] Ríos Reason for Consultation Dizziness two months History of Present Illness Ms. Felton is a 59 years old left-handed female with a history of hypertension, diabetes, dyslipidemia, coronary artery disease, heart attack, congestive heart failure, arthritis, GERD, obesity, chronic foot ulcer, she came to the [facility] on 06/16/2024 with a chief complaint of dizziness. At this time, she was alert and fully oriented, she provided the following history Since 2023, the patient was has spells of dizziness where everything spinning around her, at least once daily, typically lasts for a few minutes but with the longest one for 3 hours, triggered by any physical activity, especially lying down. There was no associated vision changes, hearing change, tinnitus, focal weakness numbness. She was never had similar problem before. No recent trauma or head injury Are not 2015, the patient was developed intermittent tingling, numbness, burning pains in the feet, with spreading upwards symmetrically, and then later the symptoms become constant. Around 2018, she developed tingling and numbness in the hands Around [id number], when she went through a NCV/EMG tests, she did not feel pain in the feet and the legs. The patient was said to have neuropathy She was on Lyrica 200 mg t.i.d. with improved symptoms, she was takes Page 7.5/325 mg at home. She was allergic to gabapentin Urinalysis, 06/16/2024: WBC clumps: Present, urine leukocyte esterase: 3+, urine nitrate: 2+ CBC, 06/16/24: ok BMP, 06/17/2024: Okay Carotid Doppler, 06/17/2024: No hemodynamically significant stenosis within the carotid arteries. MRI head, 06/17/2024: 1. No evidence of acute infarction, intracranial hemorrhage, mass effect or hydrocephalus. [id number] changes of chronic microvascular ischemic disease. No acute ischemia Past Medical History Hypertension, diabetes, dyslipidemia, coronary artery disease, heart attack, congestive heart failure, arthritis, GERD, obesity Past Surgical History Appendectomy, cholecystectomy, CABG, PTCA Family History: Cardiovascular disease G8 MOTHER Cerebrovascular accident (CVA) G8 FATHER Diabetes mellitus G8 MOTHER FH: coronary artery bypass surgery G8 MOTHER Hypertension G8 MOTHER G8 FATHER Family History Hypertension, diabetes, heart disease, stroke Social History She was a tobacco smoker, no history of alcohol or drug abuse Allergies: Coded Allergies: Hydrochlorothiazide (Verified Allergy, Unknown, 12/12/21) Gabapentin (Unverified Adverse Reaction, Unknown, LEG SWELLING, 08/05/21) PREGABALIN IS FINE, NO REACTION Home Meds Active Scripts Hydrocodone-Acetaminophen (Hydrocodone Bitartrate/AC 5-325 mg) 1 Tab Tab, 1 TAB PO Q8HPRN PRN for 7 Days, #21 TAB Prov:SOLO LINO [employer]GER [employer] 02/01/22 Atorvastatin Calcium (ATORVASTATIN CALCIUM) 20 Mg Tab, 40 MG PO HS for 30 Days, #60 TAB Prov:AGNES HUSSEIN NP 10/04/21 Aspirin (Aspir-Low) 81 Mg Tab, 81 MG PO DAILY for 30 Days, #30 TAB Prov:AGNES HUSSEIN MANAGER [employer] 10/04/21 Isosorbide Mononitrate (Isosorbide Mononitrate ER) 60 Mg Tab, 60 MG PO BID for 30 Days, #60 TAB Prov:AGNES HUSSEIN MANAGER [employer] 10/04/21 Prasugrel Hydrochloride (Effient) 10 Mg Tab, 10 MG PO DAILY for 30 Days, #30 TAB Prov:AGNES HUSSEIN MANAGER [employer] 10/04/21 Ranolazine (Ranexa) 500 Mg Tab, 500 MG PO BID for 30 Days, #60 TAB Prov:AGNES HUSSEIN MANAGER [employer] 10/04/21 Furosemide (Lasix) 40 Mg Tab, 40 MG PO BID for 30 Days, #60 TAB 3 Refills Prov:HILARIO MARIE MD 08/11/21 Reported Medications Tirzepatide (Mounjaro) 5 Mg/0.5 Ml Inj, 5 MG SC QWEEKLY 03/09/23 Tirzepatide (Mounjaro) 10 Mg/0.5 Ml Inj, 10 MG SC QWEEKLY, INJ 10/30/22 Silver Sulfadiazine (Silvadene) 1 % Cre, 1 % EX, CRE 10/30/22 Diphenhydramine-Zinc Acetate (Benadryl Cream) 1 Applic Ap, 1 APPLIC TOP, APPLIC 10/30/22 Albuterol Sulfate (VENTOLIN MDI) 90 Mcg Ih, 90 MCG IN PRN, INH 10/30/22 Lidocaine (Anorectal) (Lidocaine 5%) 5 % Cre, 5 % EX, CRE 10/30/22 Potassium Chloride (Klor-Con M20) 20 Meq Tab, 20 MEQ PO BID, TAB 10/30/22 Naloxone HCl (Narcan) 4 Mg/0.1 Ml Spr, 4 MG NA PRN, SPRAY 10/30/22 Umeclidinium-Vilanterol (Anoro Ellipta 62.5-25 Mcg/INH) 1 Aer Aer, 1 AER IN HS, AER 07/08/22 Finerenone (Kerendia) 20 Mg Tab, 20 MG PO DAILY, TAB 07/08/22 Bisoprolol Fumarate (Bisoprolol Fumarate) 5 Mg Tab, 10 MG PO BID, TAB 08/05/21 Insulin NPH (Human) (Isophane) (Humulin N) 100 Unit/Ml Inj, 95 UNITS SC DAILY, INJ 08/05/21 Coenzyme Q10 (Coq-10) 100 Mg Cap, 100 MG PO DAILY, CAP 08/05/21 Pregabalin (Lyrica) 200 Mg Cap, 200 MG PO TID, CAP 08/05/21 Diclofenac Sodium (Topical) (Arthritis Pain Reliever) 1 % Gel, 1 % EX, GEL 08/05/21 Nitroglycerin (NTROSTAT SUBLINGUAL) 0.4 Mg Sl, 0.4 MG SL PRN, TAB *MAY REPEAT EVERY 5 MINUTES X 3 TOTAL IF NO RELIEF, INITIATE ANALGESIC THERAPY. NOTIFY PHYSICIAN *Do not crush. 08/05/21 Metformin Hydrochloride (Metformin Hcl) 500 Mg Tab, 1000 MG PO BID for 30 Days, MG 08/05/21 Diltiazem Hcl (Diltiazem Hcl Er) 300 Mg Cap, 300 MG PO DAILY, CAP 08/05/21 Current Medications Current Medications Medications (Trade) Dose Ordered Sig/Nicolette Route PRN Reason Start Time Stop Time Status Last Admin Metoprolol Succinate (Toprol Xl) 50 mg DAILY PO 06/17/24 10:00 06/17/24 10:03 Prasugrel (Effient Tablet) 10 mg DAILY PO 06/17/24 10:00 06/17/24 10:01 Furosemide (Lasix Tablet) 40 mg DAILY PO 06/17/24 10:00 06/17/24 10:02 Pregabalin (Lyrica Capsule) 75 mg BID PO 06/17/24 14:00 06/17/24 14:14 Review of Systems As above, the other systems are negative Vital Signs Vital Signs Date Time Temp Pulse Resp B/P (MAP) Pulse Ox O2 Delivery O2 Flow Rate FiO2 06/17/24 20:16 96 Room Air 0.0 06/17/24 20:16 21 06/17/24 16:33 97.7 72 17 128/68 (88) 97.7 Physical Exam GENERAL EXAM: General: the patient is well developed and nourished. No acute distress. HEENT: Normocephalic, neck is supple, no carotid bruits. No mass. RESPIRATORY: Normal respiratory effort with symmetrical lung expansion. Lungs clear to auscultation. CARDIOVASCULAR: Regular rate and rhythm with no murmurs. S1, S2. ABDOMEN: Soft, nontender, normal bowel sound MUSCULOSKELETAL EXAM: A few superficial skin lesions in the feet, bilateral hammertoes NEUROLOGICAL: MENTAL STATUS: Awake and alert. Oriented to person, place, time and general circumstances. Able to give personal history SPEECH, LANGUAGE, HIGHER CORTICAL FUNCTION: no aphasia or dysathria. CRANIAL NERVES: #2: Intact visual rose to confrontation. The optic discs were sharp #3,4,6: Pupils are equal, round and reactive. EOMs full and conjugate. No nystagmus. #5: Facial sensation intact in all three divisions bilaterally. Mandibular strength intact. #7: Facial muscles symmetrical and strength intact. #8: Hearing grossly normal to voice. #9,10: Uvula and soft palate rise in the midline. Swallow and voice are normal. #11: Trapezius and sternomastoid strength intact bilaterally. #12: Tongue midline. No fasciculations or atrophy. SENSATION: Sensation to touch and pinprick is diminished distally in the lower and upper extremities, central portion of the abdominal wall MOTOR: Normal tone in the upper and lower extremity. Normal muscle bulk. No fasciculations. No abnormal movements or posturing. Muscle strength of the major groups in the upper extremities is 5/5. Muscle strength of the major groups in the lower extremities is 5/5. REFLEXES: Deep tendon reflexes are symmetrically diminished. No pathological reflexes. CEREBELLAR/COORDINATION: Finger to nose is normal bilaterally. GAIT/STATION: deferred. Labs/Diagnostic Data Labs Test 06/17/24 17:11 06/17/24 03:57 06/16/24 17:26 06/16/24 16:09 Range/Units POC Glucose 116 H 70-106 mg/dl Sodium Level 142 136-145 mmol/L Potassium Level 3.7 3.5-5.1 mmol/L Chloride Level 106 98-107 mmol/L Carbon Dioxide Level 25 20-31 mmol/L Anion Gap 11 5-15 Blood Urea Nitrogen 13 9-23 mg/dL Creatinine 0.96 0.550-1.02 mg/dL Glomerular Filtration Rate Calc 69 >90 mL/min BUN/Creatinine Ratio 13.5 10.0-20.0 Serum Glucose 85 74-106 mg/dL Calcium Level 10.0 8.7-10.4 mg/dL Urine Color Light-orange Yellow Urine Clarity Turbid H Clear Urine pH 5.5 5.0-9.0 Urine Specific [place] 1.016 1.001-1.035 Urine Protein Trace H Negative Urine Ketones Negative Negative Urine Blood Negative Negative /uL Urine Nitrite 2+ H Negative Urine Bilirubin Negative Negative Urine Urobilinogen Normal Negative mg/dL Urine Leukocyte Esterase 3+ Negative /uL Urine RBC 2 0 - 4 /hpf Urine WBC Clumps Present None Seen /hpf Urine Microscopic WBC 276 H 0-5 /HPF Urine Squamous Epithelial Cells Mod <5 /hpf Urine Bacteria Many H None Seen /hpf Urine Hyaline Casts Few 0 - 2 /lpf Urine Mucus Few None Seen Urine Yeast (Budding) Occasional None Seen /hpf Urine Glucose Normal Normal mg/dL Troponin I High Sensitivity < 3 L </=34 ng/L Test 06/16/24 14:52 Range/Units White Blood Count 9.1 4.4-10.8 10^3/uL Red Blood Count 5.01 4.0-5.20 10^6/uL Hemoglobin 14.1 12.2-16.2 g/dL Hematocrit 43.1 36.0-46.0 % Mean Corpuscular Volume 85.9 80.0-100.0 fL Mean Corpuscular Hemoglobin 28.1 28.0-32.0 pg Mean Corpuscular Hemoglobin Concent 32.7 32.0-36.0 g/dL Red Cell Distribution Width 15.9 H 11.8-14.3 % Platelet Count 289 140-450 10^3/uL Mean Platelet Volume 8.0 6.9-10.8 fL Neutrophils (%) (Auto) 56.8 37.0-80.0 % Lymphocytes (%) (Auto) 35.0 10.0-50.0 % Monocytes (%) (Auto) 5.2 0.0-12.0 % Eosinophils (%) (Auto) 1.8 0.0-7.0 % Basophils (%) (Auto) 1.2 0.0-2.0 % Neutrophils # (Auto) 5.2 1.6-8.6 10 ^3/uL Lymphocytes # (Auto) 3.2 0.4-5.4 10 ^3/uL Monocytes # (Auto) 0.5 0-1.3 10 ^3/uL Eosinophils # (Auto) 0.2 0-0.8 10 ^3/uL Basophils # (Auto) 0.1 0-0.2 10 ^3/uL Nucleated Red Blood Cells 0.1 % B-Type Natriuretic Peptide 22.42 0-100 pg/mL Assessment Dizziness, likely the patient was has benign paroxysmal positional vertigo though with some atypical features Severe diabetic polyneuropathy Plan/Recommendation Monitoring Supportive treatment Telemetry Vitamin B12, folic acid, TSH, FT4 HGB A1c CMP Lyrica 75 mg b.i.d., constant escalating Wound care Foot care Daily foot inspection Soft, wide and protect she was only Further address vertigo as an outpatient More recommendation per clinical course Prognosis: Poor This medical document was created using an electronic medical record system with [employer] dictation system. Although this document has been carefully reviewed, there may still be some phonetic and typographical errors. These areas are purely typographical due to imperfections of the software programs, and do not reflect any compromise in the patient's medical care. Plan discussed with: Patient, Other RAEGAN FERNANDEZ MD Jun 17, 2024 22:17
[2024-06-18] VITALS (9 sets, daily range): BP systolic 103–152; BP diastolic 50–85; PULSE 66–75; RESP 17–18; TEMP 97.6–98.1; O2SAT 94–97
[2024-06-18 00:25] LABS: Free T4 (Free Thyroxine) 1.03 ng/dL (0.89-1.76)
[2024-06-18] MEDS: HYDROcodone-ACET 7.5/325MG TAB PO PRN (01:12)
--- NOTE | 2024-06-18 10:10 | DVHPN2 ---
Reviewed: Care Plan, H&P, Labs, Medications, Previous Orders, Radiology Changes from previous H/P or p: No Changes Objective Vitals Vital Signs Date Time Temp Pulse Resp B/P (MAP) Pulse Ox O2 Delivery O2 Flow Rate FiO2 06/18/24 09:55 66 132/72 06/18/24 08:45 97.6 17 97 97.6 06/17/24 20:16 Room Air 0.0 06/17/24 20:16 21 Intake/Output Intake and Output 06/18/24 07:00 Intake Total 1200 ml Balance 1200 ml Intake Oral 1200 ml # Voids 6 Medications Current Medications Medications Dose Ordered Sig/Nicolette Route Start Time Stop Time Status Last Admin Dose Admin Albuterol 2.5 mg Q6HPRN PRN NEB 06/16/24 19:15 Cancel Metoprolol Succinate 50 mg DAILY PO 06/17/24 10:00 06/18/24 09:55 50 MG Ranolazine 500 mg BID PO 06/16/24 22:00 06/18/24 09:55 500 MG Atorvastatin Calcium 20 mg HS PO 06/16/24 22:00 06/17/24 23:12 20 MG Prasugrel 10 mg DAILY PO 06/17/24 10:00 06/18/24 09:54 10 MG Furosemide 40 mg DAILY PO 06/17/24 10:00 06/18/24 09:54 40 MG Meclizine HCl 25 mg Q6HPRN PRN PO 06/16/24 19:15 Diagnostic Test (Pha) 1 strip ACHS 06/16/24 22:00 06/18/24 06:54 1 STRIP Insulin Human Regular ACHS SC 06/16/24 22:00 06/17/24 23:14 2 UNITS Dextrose 50 ml UD PRN IV 06/16/24 19:15 Ondansetron HCl 4 mg Q4HP PRN IV 06/16/24 19:15 Acetaminophen 650 mg Q6HP PRN PO 06/16/24 19:15 06/17/24 14:14 650 MG Pregabalin 75 mg BID PO 06/17/24 14:00 06/18/24 09:54 75 MG Acetaminophen/ Hydrocodone Bitart 1 tab Q6HP PRN PO 06/17/24 23:45 06/18/24 06:44 1 TAB Laboratory Results Laboratory Tests 06/16/24 14:52 06/17/24 03:57 HgA1c, TSH Test 06/17/24 23:41 Hemoglobin A1c 5.7 % A1C (<5.7) Thyroid Stimulating Hormone (TSH) 1.97 uIU/mL (0.55-4.78) Urinalysis Test 06/16/24 17:26 Urine Color Light-orange (Yellow) Urine Clarity Turbid (Clear) H Urine pH 5.5 (5.0-9.0) Urine Specific [place] 1.016 (1.001-1.035) Urine Protein Trace (Negative) H Urine Ketones Negative (Negative) Urine Blood Negative /uL (Negative) Urine Nitrite 2+ (Negative) H Urine Bilirubin Negative (Negative) Urine Urobilinogen Normal mg/dL (Negative) Urine Leukocyte Esterase 3+ /uL (Negative) Urine RBC 2 /hpf (0 - 4) Urine WBC Clumps Present /hpf (None Seen) Urine Microscopic WBC 276 /HPF (0-5) H Urine Squamous Epithelial Cells Mod /hpf (<5) Urine Bacteria Many /hpf (None Seen) H Urine Hyaline Casts Few /lpf (0 - 2) Urine Mucus Few (None Seen) Urine Yeast (Budding) Occasional /hpf (None Urine Glucose Normal mg/dL (Normal) Labs and/or images reviewed: Labs reviewed by me, Image(s) reviewed by me Assessment/Plan Assessment/Plan Sepsis secondary to urinary tract infection: Blood cultures pending, urine cultures pending continue Rocephin Dizziness two months: CT head negative MRI brain negative: Carotid ultrasound negative Neurology consult for Dr. Eddy appreciated TSH normal, folic acid level normal, B12 level normal, possible positional vertigo Peripheral neuropathy: Lyrica History of coronary artery disease Congestive heart failure Diabetes Hypercholesterolemia Hypertension History of [place] History of CABG and PTCA Time spent 35 minutes Plan discussed with: Patient My Orders Orders - AMBER HURT MD Procedure Category Date Status Time Blood Culture TOSHA 06/17/24 In Process 13:10 Urine Bacterial TOSHA 06/17/24 Logged Culture 13:10 * Neurology Consult CONS 06/17/24 Transmitted 13:11 Carotid Duplx W Color US 06/17/24 Resulted DOP 13:35 Pregabalin Capsule PHA 06/17/24 In Process (Lyrica Capsule) 14:00 Cleanse Wound With ETHEL 06/17/24 In Process Wound Clean 13:49 * Dietary Consult CONS 06/17/24 Transmitted 16:01 Date of Service: Jun 18, 2024 Billing Provider: AMBER HURT MD Common Visit Codes: [id number] INP/OBS CARE(HIGH) AMBER HURT MD Jun 18, 2024 10:10
[2024-06-18] MEDS: cefTRIAXone 1GM/50ML D5W 50 ML IV ONE (11:24)
--- NOTE | 2024-06-18 23:04 | DVHPN2 ---
Progress Note - Dictate Date Seen: Jun 18, 2024 Medical Necessity Reason Pt with a Central, PICC or Fol: No Subjective Ms. Felton is a 59 years old left-handed female with a history of hypertension, diabetes, dyslipidemia, coronary artery disease, heart attack, congestive heart failure, arthritis, GERD, obesity, chronic foot ulcer, she came to the [facility] on 06/16/2024 with a chief complaint of dizziness. I have seen and examined the patient, I have discussed with her nurse, she was doing fine, but she reports neck pain earlier today, she was ice pack for the pain control Urinalysis, 06/16/2024: WBC clumps: Present, urine leukocyte esterase: 3+, urine nitrate: 2+ CBC, 06/16/24: ok BMP, 06/17/2024: Okay HGB A1c, 06/17/2019 5:5.7 Vitamin B12, 06/17/2024: 315 Folic acid, 06/17/2024: 10 TSH, 06/17/2024: 1497 FT4, 06/17/2024: 1.03 Carotid Doppler, 06/17/2024: No hemodynamically significant stenosis within the carotid arteries. MRI head, 06/17/2024: 1. No evidence of acute infarction, intracranial hemorrhage, mass effect or hydrocephalus. [id number] changes of chronic microvascular ischemic disease. No acute ischemia vital signs Vital Sign Date Time Temp Pulse Resp B/P (MAP) Pulse Ox O2 Delivery O2 Flow Rate FiO2 06/18/24 21:00 97.6 75 18 152/85 (107) 96 97.6 06/18/24 20:00 Room Air* 0 21 Total Intake and Output 06/17/24 06/17/24 06/18/24 15:00 23:00 07:00 Intake Total 300 ml 900 ml Balance 300 ml 900 ml medications Current Medications Medications Dose Ordered Sig/Nicolette Route Start Time Stop Time Status Last Admin Dose Admin Albuterol 2.5 mg Q6HPRN PRN NEB 06/16/24 19:15 Cancel Metoprolol Succinate 50 mg DAILY PO 06/17/24 10:00 06/18/24 09:55 50 MG Ranolazine 500 mg BID PO 06/16/24 22:00 06/18/24 22:19 500 MG Atorvastatin Calcium 20 mg HS PO 06/16/24 22:00 06/18/24 22:18 20 MG Prasugrel 10 mg DAILY PO 06/17/24 10:00 06/18/24 09:54 10 MG Furosemide 40 mg DAILY PO 06/17/24 10:00 06/18/24 09:54 40 MG Meclizine HCl 25 mg Q6HPRN PRN PO 06/16/24 19:15 Diagnostic Test (Pha) 1 strip ACHS 06/16/24 22:00 06/18/24 22:20 1 STRIP Insulin Human Regular ACHS SC 06/16/24 22:00 06/18/24 22:20 2 UNITS Dextrose 50 ml UD PRN IV 06/16/24 19:15 Ondansetron HCl 4 mg Q4HP PRN IV 06/16/24 19:15 Acetaminophen 650 mg Q6HP PRN PO 06/16/24 19:15 06/17/24 14:14 650 MG Pregabalin 75 mg BID PO 06/17/24 14:00 06/18/24 22:18 75 MG Acetaminophen/ Hydrocodone Bitart 1 tab Q6HP PRN PO 06/17/24 23:45 06/18/24 19:34 1 TAB Ceftriaxone Sodium 50 ml @ 100 mls/hr DAILY@ IV 06/19/24 09:00 objective General: the patient is well developed and nourished. No acute distress. MUSCULOSKELETAL EXAM: A few superficial skin lesions in the feet, bilateral hammertoes MENTAL STATUS: Awake and alert. Oriented to person, place, time and general circumstances. Able to give personal history SPEECH, LANGUAGE, HIGHER CORTICAL FUNCTION: no aphasia or dysathria. CRANIAL NERVES: Pupils are equal, round and reactive. EOMs full and conjugate. No nystagmus. Facial sensation intact in all three divisions bilaterally. Mandibular strength intact. Facial muscles symmetrical and strength intact. SENSATION: Sensation to touch and pinprick is diminished distally in the lower and upper extremities, central portion of the abdominal wall MOTOR: Normal tone in the upper and lower extremity. Normal muscle bulk. No fasciculations. No abnormal movements or posturing. Muscle strength of the major groups in the extremities is 5/5. REFLEXES: Deep tendon reflexes are symmetrically diminished. No pathological reflexes. CEREBELLAR/COORDINATION: Finger to nose is normal bilaterally. GAIT/STATION: deferred. laboratory and microbiology Laboratory Tests 06/17/24 03:57 06/16/24 14:52 Test 06/17/24 03:57 Range/Units Serum Glucose 85 74-106 mg/dL Problem List Dizziness, likely the patient was has benign paroxysmal positional vertigo though with some atypical features Severe diabetic polyneuropathy Assessment/Plan Monitoring Supportive treatment Telemetry Increased Lyrica to 100 mg b.i.d. and escalate as indicated Wound care Foot care Daily foot inspection Soft, wide and protect she was only Further address vertigo as an outpatient More recommendation per clinical course This medical document was created using an electronic medical record system with [employer] dictation system. Although this document has been carefully reviewed, there may still be some phonetic and typographical errors. These areas are purely typographical due to imperfections of the software programs, and do not reflect any compromise in the patient's medical car Prognosis poor Dietary Evaluation Review Comments: Dietary consult for wound: 1) Tight DM control, follow CCHO-60 2 gNa diet 2) Wt reduction, Cardiac 2 G Na Low fat Low chol diet. 3) elevate affected extremity on pillows, Avoid weight-bearing on left foot. 4) Increase mobility when possible. Improve circulation. 5) Consider Deniz BID for wound healing if GFR improves. 6) normal BMs, with compliant of Nausea/vertigo? possible side effects of medications pt is currently taking? Expected Outcomes/Goals: Wt loss, controlled DM, healed wound, Plan discussed with: Patient, Other Total Time (mins): 35 RAEGAN FERNANDEZ MD Jun 18, 2024 23:04
[2024-06-19 01:00] VITALS: BP 142/52; PULSE 68; RESP 17; TEMP 97.7; O2SAT 94
[2024-06-19 05:00] VITALS: BP 123/59; PULSE 67; RESP 17; TEMP 97.6; O2SAT 96
[2024-06-19 09:00] VITALS: BP 135/86; PULSE 64; RESP 16; TEMP 98.3; O2SAT 92
[2024-06-19] MEDS ORDERED: PREG100C PO (09:45)
[2024-06-19] MEDS ORDERED: CIPR-173 PO (09:49)
[2024-06-19] MEDS ORDERED: MECL25CH85 PO (09:49)
--- NOTE | 2024-06-19 09:52 | DVHPN2 ---
Reviewed: Care Plan, H&P, Labs, Medications, Previous Orders, Radiology Changes from previous H/P or p: No Changes Objective Vitals Vital Signs Date Time Temp Pulse Resp B/P (MAP) Pulse Ox O2 Delivery O2 Flow Rate FiO2 06/19/24 05:00 97.6 67 17 123/59 (80) 96 97.6 06/18/24 20:00 Room Air* 0 21 Intake/Output Intake and Output 06/19/24 07:00 Intake Total 1675 ml Balance 1675 ml Intake Oral 1625 ml IV Total 50 ml # Voids 14 # Bowel Movements 1 Medications Current Medications Medications Dose Ordered Sig/Nicolette Route Start Time Stop Time Status Last Admin Dose Admin Albuterol 2.5 mg Q6HPRN PRN NEB 06/16/24 19:15 Cancel Metoprolol Succinate 50 mg DAILY PO 06/17/24 10:00 06/18/24 09:55 50 MG Ranolazine 500 mg BID PO 06/16/24 22:00 06/18/24 22:19 500 MG Atorvastatin Calcium 20 mg HS PO 06/16/24 22:00 06/18/24 22:18 20 MG Prasugrel 10 mg DAILY PO 06/17/24 10:00 06/18/24 09:54 10 MG Furosemide 40 mg DAILY PO 06/17/24 10:00 06/18/24 09:54 40 MG Meclizine HCl 25 mg Q6HPRN PRN PO 06/16/24 19:15 Diagnostic Test (Pha) 1 strip ACHS 06/16/24 22:00 06/19/24 06:25 1 STRIP Insulin Human Regular ACHS SC 06/16/24 22:00 06/19/24 06:36 2 UNITS Dextrose 50 ml UD PRN IV 06/16/24 19:15 Ondansetron HCl 4 mg Q4HP PRN IV 06/16/24 19:15 Acetaminophen 650 mg Q6HP PRN PO 06/16/24 19:15 06/17/24 14:14 650 MG Acetaminophen/ Hydrocodone Bitart 1 tab Q6HP PRN PO 06/17/24 23:45 06/19/24 06:56 1 TAB Ceftriaxone Sodium 50 ml @ 100 mls/hr DAILY@09 IV 06/19/24 09:00 Pregabalin 100 mg BID PO 06/19/24 10:00 Laboratory Results Laboratory Tests 06/16/24 14:52 06/17/24 03:57 Urinalysis Test 06/16/24 17:26 Urine Color Light-orange (Yellow) Urine Clarity Turbid (Clear) H Urine pH 5.5 (5.0-9.0) Urine Specific [place] 1.016 (1.001-1.035) Urine Protein Trace (Negative) H Urine Ketones Negative (Negative) Urine Blood Negative /uL (Negative) Urine Nitrite 2+ (Negative) H Urine Bilirubin Negative (Negative) Urine Urobilinogen Normal mg/dL (Negative) Urine Leukocyte Esterase 3+ /uL (Negative) Urine RBC 2 /hpf (0 - 4) Urine WBC Clumps Present /hpf (None Seen) Urine Microscopic WBC 276 /HPF (0-5) H Urine Squamous Epithelial Cells Mod /hpf (<5) Urine Bacteria Many /hpf (None Seen) H Urine Hyaline Casts Few /lpf (0 - 2) Urine Mucus Few (None Seen) Urine Yeast (Budding) Occasional /hpf (None Urine Glucose Normal mg/dL (Normal) Microbiology Microbiology Date/Time Source Procedure Growth Status 06/17/24 16:18 Blood Blood Culture - Preliminary NO GROWTH AFTER 24 HOURS OF INCUBATION. Resulted Labs and/or images reviewed: Labs reviewed by me, Image(s) reviewed by me Assessment/Plan Assessment/Plan Sepsis secondary to urinary tract infection: Blood cultures negative, urine cultures pending treated with Rocephin Dizziness two months: CT head negative MRI brain negative: Carotid ultrasound negative echo 55 percent ejection fraction Neurology consult for Dr. Eddy appreciated placed on Antivert and Lyrica TSH normal, folic acid level normal, B12 level normal, possible positional vertigo Peripheral neuropathy: Lyrica History of coronary artery disease Congestive heart failure Diabetes Hypercholesterolemia Hypertension History of [place] History of CABG and PTCA Time spent 35 minutes Urine cultures pending but patient would like to go home Plan discussed with: Patient My Orders Orders - AMBER HURT MD Procedure Category Date Status Time Ceftriaxone 1gm/50ml PHA 06/19/24 In Process D5w (Rocephin) 09:00 Urine Bacterial TOSHA 06/19/24 Logged Culture 09:43 Communication Order ORDERS 06/19/24 Transmitted 09:44 Date of Service: Jun 19, 2024 Billing Provider: AMBER HURT MD Common Visit Codes: [id number] INP/OBS CARE(HIGH) AMBER HURT MD Jun 19, 2024 09:52
--- NOTE | 2024-06-19 09:56 | DVHDS2 ---
Discharge Summary Date of Admission Jun 16, 2024 at 19:14 Date of Discharge: Jun 19, 2024 Admitting Diagnosis Dizziness Wounds: None Labs/Diagnostic Data: Laboratory Results Test 06/19/24 06:23 06/17/24 23:41 06/17/24 03:57 06/16/24 17:26 POC Glucose 137 mg/dl (70-106) Hemoglobin A1c 5.7 % A1C (<5.7) Vitamin B12 Level 315 pg/mL (211-911) Folic Acid 10.00 ng/mL (>5.38) Thyroid Stimulating Hormone (TSH) 1.97 uIU/mL (0.55-4.78) Free Thyroxine (T4) Calculated 1.03 ng/dL (0.89-1.76) Sodium Level 142 mmol/L (136-145) Potassium Level 3.7 mmol/L (3.5-5.1) Chloride Level 106 mmol/L (98-107) Carbon Dioxide Level 25 mmol/L (20-31) Anion Gap 11 (5-15) Blood Urea Nitrogen 13 mg/dL (9-23) Creatinine 0.96 mg/dL (0.550-1.02) Glomerular Filtration Rate Calc 69 mL/min (>90) BUN/Creatinine Ratio 13.5 (10.0-20.0) Serum Glucose 85 mg/dL (74-106) Calcium Level 10.0 mg/dL (8.7-10.4) Urine Color Light-orange (Yellow) Urine Clarity Turbid (Clear) Urine pH 5.5 (5.0-9.0) Urine Specific [place] 1.016 (1.001-1.035) Urine Protein Trace (Negative) Urine Ketones Negative (Negative) Urine Blood Negative /uL (Negative) Urine Nitrite 2+ (Negative) Urine Bilirubin Negative (Negative) Urine Urobilinogen Normal mg/dL (Negative) Urine Leukocyte Esterase 3+ /uL (Negative) Urine RBC 2 /hpf (0 - 4) Urine WBC Clumps Present /hpf (None Seen) Urine Microscopic WBC 276 /HPF (0-5) Urine Squamous Epithelial Cells Mod /hpf (<5) Urine Bacteria Many /hpf (None Seen) Urine Hyaline Casts Few /lpf (0 - 2) Urine Mucus Few (None Seen) Urine Yeast (Budding) Occasional /hpf (None Urine Glucose Normal mg/dL (Normal) Test 06/16/24 16:09 2/24/25 14:52 Troponin I High Sensitivity < 3 ng/L (</=34) White Blood Count 9.1 10^3/uL (4.4-10.8) Red Blood Count 5.01 10^6/uL (4.0-5.20) Hemoglobin 14.1 g/dL (12.2-16.2) Hematocrit 43.1 % (36.0-46.0) Mean Corpuscular Volume 85.9 fL (80.0-100.0) Mean Corpuscular Hemoglobin 28.1 pg (28.0-32.0) Mean Corpuscular Hemoglobin Concent 32.7 g/dL (32.0-36.0) Red Cell Distribution Width 15.9 % (11.8-14.3) Platelet Count 289 10^3/uL (140-450) Mean Platelet Volume 8.0 fL (6.9-10.8) Neutrophils (%) (Auto) 56.8 % (37.0-80.0) Lymphocytes (%) (Auto) 35.0 % (10.0-50.0) Monocytes (%) (Auto) 5.2 % (0.0-12.0) Eosinophils (%) (Auto) 1.8 % (0.0-7.0) Basophils (%) (Auto) 1.2 % (0.0-2.0) Neutrophils # (Auto) 5.2 10 ^3/uL (1.6-8.6) Lymphocytes # (Auto) 3.2 10 ^3/uL (0.4-5.4) Monocytes # (Auto) 0.5 10 ^3/uL (0-1.3) Eosinophils # (Auto) 0.2 10 ^3/uL (0-0.8) Basophils # (Auto) 0.1 10 ^3/uL (0-0.2) Nucleated Red Blood Cells 0.1 % B-Type Natriuretic Peptide 22.42 pg/mL (0-100) Other Laboratory Tests 06/17/24 03:57 06/16/24 14:52 Brief Hx & Hospital Course: 59-year-old female with a history of diabetes hypertension CA hypercholesterolemia congestive heart failure coronary artery disease status post CABG and PTCA came in complaining of dizziness for the last two months. CT head negative MRI brain negative carotid ultrasound negative echocardiogram 55 percent ejection fraction. Patient was found to have sepsis secondary to urinary tract infection treated with Rocephin blood cultures negative urine cultures pending but the patient would like to be discharged home. Seen by Neurology Dr. Eddy TSH normal folic acid level normal B12 normal felt possible positional vertigo placed on Antivert. Lyrica has been increased to 100 mg p.o. b.i.d. for peripheral neuropathy. Patient being discharged home on Cipro for UTI and Antivert symptomatically for the dizziness she will follow up with the Dr. Eddy for further workup Patient is alert awake oriented x3 ambulatory with stable vital signs at the time of discharge. Consults/Reason for consult Neurology Dr. Eddy Operations or Procedures CT head Carotid ultrasound Echocardiogram Condition at Discharge: Fair Final Diagnosis/Problems List Sepsis secondary to urinary tract infection: Blood cultures negative, urine cultures pending treated with Rocephin Dizziness two months: CT head negative MRI brain negative: Carotid ultrasound negative echo 55 percent ejection fraction Neurology consult for Dr. Eddy appreciated placed on Antivert and Lyrica TSH normal, folic acid level normal, B12 level normal, possible positional vertigo Peripheral neuropathy: Lyrica History of coronary artery disease Congestive heart failure Diabetes Hypercholesterolemia Hypertension History of CA History of CABG and PTCA Discharge Disposition: Home Discharge Instruct/Medications Diet: Cardiac 2g Na,low cholest Activity: Light activity Follow Up/Referral: Resume all previous home medications including Lyrica Follow up with your primary Dr in one week Follow up with the Neurology Dr. Eddy for further workup and the dizziness Medications: Antivert Cipro Transmitted to pharmacy 39 (Time taken for discharge summary 39 minutes) Discharge Statement: "Patient was advised to return to the ER or call 911 if any headaches, dizziness, shortness of breath, chest pain, abdominal pain, bleeding, fevers, or worsening of medical condition. Patient was counseled about treatment plan, medications, possible side effects, patientverbalized understanding. All questions were answered to the best of my ability. This discharge took greater then 30 minutes in planning, reviewing documentation, counseling the patient, and discussing with other team members." ASSESSMENT ASSESSMENT Hospital Course Improved Assessment Sepsis secondary to urinary tract infection: Blood cultures negative, urine cultures pending treated with Rocephin Dizziness two months: CT head negative MRI brain negative: Carotid ultrasound negative echo 55 percent ejection fraction Neurology consult for Dr. Eddy appreciated placed on Antivert and Lyrica TSH normal, folic acid level normal, B12 level normal, possible positional vertigo Peripheral neuropathy: Lyrica History of coronary artery disease Congestive heart failure Diabetes Hypercholesterolemia Hypertension History of CA History of CABG and PTCA Date of Service: Jun 19, 2024 Billing Provider: AMBER HURT MD Common Visit Codes: 76970-KQN/OBS DISCH DAY >30min AMBER HURT MD Jun 19, 2024 09:56
[2024-06-19 10:00] VITALS: O2SAT 92
[2024-06-19] MEDS: cefTRIAXone 1GM/50ML D5W 50 ML IV SCH (10:48)
[2024-06-19] MEDS: PREGABALIN 25 MG CAP PO SCH (10:49)
[2024-06-19 11:55] VITALS: BP 135/86; PULSE 64; TEMP 36.8
== END 2024-06-19 13:20 | disposition home or self-care (01) | DRG 872 ==
LOC: ER 13:52 → OVERFLOW 19:14 → CENTRAL 22:46
PROVIDERS: ADMIT Family Medicine; ATTEND Family Medicine
DX: A41.9 Sepsis, unspecified organism (principal); N39.0 Urinary tract infection, site not specified; E11.42 Type 2 diabetes mellitus with diabetic polyneuropathy; E66.9 Obesity, unspecified; I11.0 Hypertensive heart disease with heart failure; E78.00 Pure hypercholesterolemia, unspecified; I50.9 Heart failure, unspecified; I25.10 Atherosclerotic heart disease of native coronary artery without angina pectoris; K21.9 Gastro-esophageal reflux disease without esophagitis; F17.210 Nicotine dependence, cigarettes, uncomplicated; H53.8 Other visual disturbances; Z83.3 Family history of diabetes mellitus; Z90.49 Acquired absence of other specified parts of digestive tract; Z98.61 Coronary angioplasty status; Z95.1 Presence of aortocoronary bypass graft; Z82.49 Family history of ischemic heart disease and other diseases of the circulatory system; Z82.3 Family history of stroke; I25.2 Old myocardial infarction; Z88.8 Allergy status to other drugs, medicaments and biological substances; Z79.899 Other long term (current) drug therapy; Z68.38 Body mass index [BMI] 38.0-38.9, adult; Z79.4 Long term (current) use of insulin
CPT/HCPCS: 36415; 70450; 70551; 80048; 81001; 82607; 82746; 82962; 83036; 83880; 84439; 84443; 84484; 85025; 87040; 87086; 93005; 93306; 93886; G0378; J1815; J1885; Q0162

== ENCOUNTER 2025-01-14 09:15 | Day surgery (SDC) | payer OTHER, MEDICAID ==
[2025-01-09 13:24] LABS: Hematocrit 41.1 % (36.0-46.0); Hemoglobin 13.9 g/dL (12.2-16.2); Mean Corpuscular Hemoglobin 29.0 pg (28.0-32.0); Mean Corpuscular Volume 85.4 fL (80.0-100.0); Nucleated Red Blood Cells % 0.1 %
[2025-01-09 13:29] LABS: Urine Protein, UAD Negative (Negative)
[2025-01-09 13:38] LABS: INR 0.92 (0.9-1.15); Partial Thromboplastin Time 23.6 SEC (24.5-34.5); Prothrombin Time 9.8 sec (9.3-11.8)
[2025-01-09 13:47] LABS: Alanine Aminotransferase 25 U/L (7-40); Albumin 4.4 g/dL (3.2-4.8); Anion Gap 14 (5-15); BUN/Creatinine Ratio 9.9 (10.0-20.0); Calcium 9.2 mg/dL (8.7-10.4); Carbon Dioxide 26 mmol/L (20-31); Chloride 103 mmol/L (98-107); Potassium 3.9 mmol/L (3.5-5.1); Sodium 143 mmol/L (136-145); Total Protein 7.0 g/dL (5.7-8.2)
[2025-01-09 13:48] LABS: Bilirubin, Total 0.6 mg/dL (0.2-1.0)
[2025-01-09 13:49] LABS: Alkaline Phosphatase 202 U/L (46-116); Blood Urea Nitrogen 9 mg/dL (9-23); Glucose 150 mg/dL (74-106)
[~2025-01-14] VITALS: Ht 172.7 cm; Wt 112.9 kg
[~2025-01-14 09:15] MED LIST changes: -BISO5TAB44 PO; -COEN100C15 PO; +CYCL-839 PO; -DICL1GEL72 EX; -DIPH1CRE TOP; -FINE20TA PO; -FURO1TAB31 PO; -LIDO5CRE14 EX; +METO-289 PO; -POTA-220 PO; -RANO500T PO; +SENN-58 PO; -SILV1CRE82 EX; -TIRZ5INJ SC; +TRIA0.02 EX; -UMEC1AER IN; +ZOFR4T PO; -[UNRECOGNIZED DRUG - CODE] PO
[2025-01-14] MEDS ORDERED: MIDAZOLAM HCL 2MG/2ML 2ml VIAL (1mg/ml) ONE (09:53)
[2025-01-14] MEDS ORDERED: ONDANSETRON HCL 4 MG/2 ML VIAL ONE (09:53)
[2025-01-14] MEDS ORDERED: METOCLOPRAMIDE HCL 5MG/ml INJ 2ml VIAL ONE (09:53)
[2025-01-14] MEDS ORDERED: LIDOCAINE 2% (LOCAL ANESTH.) PF 5ml SDV ONE (09:53)
[2025-01-14] MEDS ORDERED: fentaNYL CITRATE 100 MCG/2 ML VL ONE (09:53)
[2025-01-14] MEDS ORDERED: PROPOFOL 10 MG/ML 20 ML IV ONE (09:54)
[2025-01-14] MEDS: ceFAZolin 2 GM/D5W50ml 50 ML IV ONE (10:05)
[2025-01-14] MEDS: LIDOCAINE 1% HCL (LOCAL ANESTH.) INJ 20ML MDV ONE (10:15)
[2025-01-14 10:22] VITALS: PULSE 76; RESP 8; TEMP 97.7; O2SAT 98
--- NOTE | 2025-01-14 10:25 | DVHOP2 ---
Operative Report - 2 Report Details Date: 01/14/25 Preop Diagnosis: 1. Left foot chronic ulcer 2. Left foot metatarsalgia 3. Left foot short achilles Postop Diagnosis: Same as preop Surgeon: Shauna Ruiz MD Anesthesiologist: See anesthesia Anesthesia: Mac Consent: The patient was informed of the risks and benefits of the procedure. These include but are not limited to complications of anesthesia, postoperative infection, incomplete relief of symptoms, recurrence of symptoms, damage to blood vessels, nerves and tendons, deep venous thrombosis, pulmonary embolism a nd possible need for repeat surgery in the future. Complications: None Estimated Blood Loss: Minimal Fluids: See anesthesia Findings: Consistent with diagnosis Indications for Surgery: Worsening ulcer and metatarsalgia Name of Procedure Performed 1. Left foot first metatarsal osteotomy (38209) 2. Left foot EHL tenotomy (29207) Procedure Details Procedure Details: PRE-PROCEDURE INFORMATION: In the pre-op holding area, the extremity to be operated on was clearly marked and the patient verified correct laterality of the marking. The patient was transferred to the OR table and placed in a supine position. A timeout was performed in which identification of the correct patient, procedure, location, and materials was done. The left foot and leg were prepped and draped in normal sterile fashion. DESCRIPTION OF PROCEDURE: Attention was directed to the left 2nd metatarsal head where a stab incision was made. The incision was deepened through blunt and sharp dissection. Care was taken to avoid damage to neurovascular structures throughout dissection. Incision was carried to the level of the left 2nd metatarsal head, it was noted there was significant plantar flexion of the metatarsal head. Using an MIS bur, the an osteotomy was performed across the neck of the metatarsal head. The metatarsal head was then able to float. Using a 15 blade, the EHL tendon was then tenotomized 2-0 prevent dorsiflexion of the 1st metatarsal. All surgical wounds were irrigated copiously with saline and closed in layers with the aforementioned suture material. A dry sterile dressing was placed on the surgical extremity. The patient was placed in a postop shoe POSTOPERATIVE INFORMATION: The patient tolerated the above noted procedure and anesthesia well and was transferred to the PACU with vital signs stable, and vascular status intact with capillary refill intact to all digits. Postoperative instructions reviewed in detail with the patient with written instructions provided. Patient will return to clinic in approximately 10-14 days for first postoperative visit. Patient has the number of the clinic and was instructed to call prior to that time should any problems, questions, or concerns arise. Condition Good Disposition 2 Home Visit Coding Podiatry Date of Service if different f: Jan 14, 2025 Billing Provider: SHAUNA RUIZ DPM Podiatry Common Visit Codes: PROCEDURE ONLY SHAUNA RUIZ DPM Jan 14, 2025 10:25
[2025-01-14] MEDS ORDERED: HYDROmorphone HCL 2 MG/ML VL/or syr IV PRN (10:30)
[2025-01-14] MEDS ORDERED: ONDANSETRON HCL 4 MG/2 ML VIAL IV PRN (10:30)
[2025-01-14] MEDS ORDERED: KETOROLAC TROMETH 30 MG/ML 1ML VIAL IV ONE (10:30)
[2025-01-14 10:45] VITALS: PULSE 82; RESP 13; O2SAT 95
[2025-01-14 11:00] VITALS: BP 110/69; PULSE 76; RESP 16; O2SAT 95
== END 2025-01-14 11:10 | disposition home or self-care (01) ==
LOC: SUR 09:15
PROVIDERS: ATTEND Podiatrist
DX: M77.42 Metatarsalgia, left foot (principal); E11.42 Type 2 diabetes mellitus with diabetic polyneuropathy; L97.529 Non-pressure chronic ulcer of other part of left foot with unspecified severity; M67.02 Short Achilles tendon (acquired), left ankle; I25.10 Atherosclerotic heart disease of native coronary artery without angina pectoris; I10 Essential (primary) hypertension; Z90.710 Acquired absence of both cervix and uterus; Z90.49 Acquired absence of other specified parts of digestive tract; Z98.890 Other specified postprocedural states; Z79.899 Other long term (current) drug therapy
CPT/HCPCS: 28234; 28308; 36415; 80053; 81001; 85025; 85610; 85730; J0690; J2003; J2250; J2405; J2704; J2765; J3010

== ENCOUNTER 2025-03-04 14:18 | Outpatient (CLI) | payer OTHER, MEDICAID | END 2025-03-04 17:00 | disposition home or self-care (01) | LOC: Rad HDHVI 14:18 | PROVIDERS: ATTEND Internal Medicine Cardiovascular Disease | DX: I11.0 Hypertensive heart disease with heart failure (principal); I50.9 Heart failure, unspecified; R42 Dizziness and giddiness | CPT/HCPCS: 93880 ==